=== PATIENT | male | born 1955 | race Caucasian/White ===

== ENCOUNTER 2019-10-19 12:25 | Outpatient (CLI) | payer BC, SELFPAY ==
--- NOTE | ~2019-10-19 | XR_ITS ---
EXAMINATION: XR clavicle RT DATE: 10/19/2019 12:48 INDICATION: Hypertrophy of bone, right shoulder. TECHNIQUE: 2 views of right clavicle were obtained. COMPARISON: None. FINDINGS: Bone alignment is normal. No fracture. There is mild osteoarthritis of acromioclavicular sujatha int and moderate osteoarthritis of glenohumeral joint. IMPRESSION: 1. Polyarticular osteoarthritis. Reviewed, dictated and finalized at location A.
== END 2019-10-19 12:26 | disposition home or self-care (01) ==
PROVIDERS: PCP Family Medicine; Visit Provider Family Medicine
DX: M89.311 Hypertrophy of bone, right shoulder (principal); M19.011 Primary osteoarthritis, right shoulder
CPT/HCPCS: 73000

== ENCOUNTER 2019-10-25 18:39 | Emergency (ER) | payer BC, SELFPAY ==
[2019-10-25] VITALS (7 sets, daily range): BP systolic 111–137; BP diastolic 71–96; PULSE 73–85; RESP 18–22; O2SAT 96–99
--- NOTE | ~2019-10-25 | XR_ITS ---
EXAMINATION: XR chest 1V portable INDICATION: Shortness of breath TECHNIQUE: Portable AP chest at 2016 hours COMPARISON: 04/19/2018 FINDINGS: There are minimal airspace opacities of the right lung base. No pleural effusion or pneumot horax is identified. The heart size is upper limits of normal for technique. IMPRESSION: 1. Right basilar airspace opacity, consistent with atelectasis versus pneumonia. Reviewed, dictated and finalized at location A. IMPRESSION: 1. Right basilar airspace opacity, consistent with atelectasis versus pneumonia .
--- NOTE | 2019-10-25 18:49 | ECG_ITS ---
Measurements Intervals [place] Rate: 78 P: 37 GA: 161 QRS: 7 QRSD: 90 T: -51 QT: 373 QTc: 427 Interpretive Statements SINUS RHYTHM T WAVE ABNORMALITY IN INFERIOR LEADS- CONSIDER ISCHEMIA ABNORMAL ECG Electronically Signed On 10-25-2019 21:04:56 CDT by Jay Ferguson D.O.
--- NOTE | 2019-10-25 18:51 | ED.SOB ---
HPI - SOB/Dyspnea General Chief Complaint: Shortness of Breath/Dyspnea Stated Complaint: sob Time Seen by Provider: 10/25/19 18:44 History of Present Illness HPI Narrative: BIBEMS for SOB. He says that he has been wheezing for a few weeks. Feeling intermittently SOB. Became very SOB today. EMS placed him on CPAP reportedly, alhough when he arrived he was on NRB. Says that he was feeling better. No chest pain, fever. He says that he has been diagnosed with COPD, no treatment. Related Data Home Medications Medication Instructions Recorded Confirmed amlodipine 5 mg tablet 5 mg PO DAILY 05/25/19 aspirin 81 mg tablet,delayed 81 mg PO DAILY 05/25/19 release losartan 100 mg tablet 100 mg PO DAILY 05/25/19 montelukast 10 mg tablet 10 mg PO DAILY 05/25/19 omeprazole 20 mg-sodium 1 cap PO DAILY 05/25/19 bicarbonate 1.1 gram capsule fluoxetine [Sarafem] 20 mg PO DAILY 10/25/19 insulin aspart U-100 [Novolog 150 unit SUB-Q DAILY 10/25/19 Flexpen U-100 Insulin] testosterone 4 pump TOPICAL DAILY 10/25/19 Allergies Allergy/AdvReac Type Severity Reaction Status Date / Time No Known Allergies Allergy Verified 10/25/19 19:05 Review of Systems Review of Systems: All systems reviewed & are unremarkable except as noted in HPI and below Constitutional: Constitutional: Denies fever(s) Cardiovascular: Cardiovascular: Denies chest pain Respiratory: Respiratory: Reports dyspnea and Reports wheezing Gastrointestinal: Gastrointestinal: Denies abdominal pain and Denies nausea PMFSH Past Medical History Medical History Chronic pain Erectile dysfunction Hyperlipidemia Hypertension 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, drug or chemical induced, with macular edema, with mild nonproliferative retinopathy Low testosterone Peripheral neuropathy Trigger finger Family History Family History Grandparent Diabetes mellitus Social History Social History Smoking status: Former smoker Second hand tobacco smoke exposure: No Smoking end date: 04/01/74 Alcohol intake: current Substance use: never Substance use type: does not use Gender identity (if verbalized by the patient): Male Spiritual care concerns: No Agree to blood products: Yes Exam Const: General: healthy appearing, no acute distress and alert Orientation/consciousness: patient oriented x3 HENMT: Head: normal to inspection Neck: Neck: normal visual inspection and no lymphadenopathy Chest: Chest palpation & inspection: no tenderness Resp: Effort & Inspection: normal respiratory effort and tachypneic Auscultation: wheezes Cardio: Jugular venous distension: no JVD Rate: regular rate Rhythm: regular rhythm Heart sounds: no murmurs GI: Inspection: non-distended GI Palp: Yes Soft to palpation and No Tenderness to palpation present (GI) Skin: General skin exam: normal color Neuro: General: patient oriented x3 and moves all extremities Speech: normal speech Extrem: General: no edema Psych: Appearance: well kempt Affect: normal affect Course Vital Signs Vital signs: Vital Signs Pulse Rate 80 10/25/19 18:53 Respiratory Rate 22 H 10/25/19 18:53 Blood Pressure 135/75 10/25/19 18:53 Pulse Oximetry 99 10/25/19 18:53 Pulse Rate 73 10/25/19 21:09 Respiratory Rate 20 10/25/19 21:09 Blood Pressure 137/71 10/25/19 21:09 Pulse Oximetry 97 10/25/19 21:09 MDM - SOB/Dyspnea MDM Narrative Medical decision making narrative: CXR shows possible pneumonia. Troponin and creatinine elevated. Discussed results and the need for admission with the patient and his . He refused admission and chose to sign out AMA. Medical Records Attestation: I reviewed the patient's medical records. Lab Data Attestation: I reviewed the patient's lab results.
[2019-10-25 19:07] LABS: Basophils Percent Auto 0.4 % (0.2-1.2); Eosinophils Absolute Auto 0.3 K/mm3 (0-0.3); Eosinophils Percent Auto 4.4 % (0-4.4); Hematocrit 43.6 % (42.0-52.0); Hemoglobin 14.3 g/dL (14.0-18.0); Immature Granulocyte Absolute 0.02 K/mm3 (0.00-0.031); Immature Granulocyte Percent A 0.3 % (0-0.5); Lymphocytes Percent Auto 23.2 % (18.3-44.2); Mean Corpuscular HGB Conc 32.8 g/dl (32-36); Mean Corpuscular Hemoglobin 27.9 pg (26-34); Mean Platelet Volume 11.4 fl (7.4-10.4); Monocytes Absolute Auto 0.7 K/mm3 (0.1-0.6); Monocytes Percent Auto 8.4 % (2.6-8.5); Neutrophils Absolute Auto 4.9 K/mm3 (1.3-6.7); Neutrophils Percent Auto 63.3 % (45.5-73.1); Platelet Count Result 181 k/mm3 (150-375); Red Blood Count 5.13 M/mm3 (4.6-6.20); Red Cell Distribution Width 13.7 % (11.5-14.5); White Blood Count 7.8 K/mm3 (4.5-10.0)
[2019-10-25 19:15] LABS: Prothrombin Time 12.8 Seconds (11.1-14.7)
[2019-10-25 19:16] LABS: Partial Thromboplastin Time 24.8 SECONDS (22.3-36.8)
[2019-10-25] MEDS: IPRATROPIUM BR 0.02% INH SOLN 0.5 MG/2.5 ML VIAL INHALATION (19:24)
[2019-10-25] MEDS: ALBUTEROL SULFATE NEB 2.5 MG/0.5 ML INH 5 MG INHALATION (19:24)
[2019-10-25] MEDS: methylPREDNISolone SOD SUCC 125 MG VIAL IV PUSH (19:27)
[2019-10-25 20:16] LABS: Anion Gap 12.6 mmol/L (7-16); Blood Urea Nitrogen 32 mg/dL (9-20); Calcium 8.2 mg/dL (8.4-10.2); Carbon Dioxide 23 mmol/L (22-30); Chloride 106 mmol/L (98-107); Estimated CRCL calculation 33 ml/min; Estimated Glomerular Filt Rate 29; Glucose 232 mg/dL (75-110); Potassium 4.6 mmol/L (3.4-5.0); Sodium 137 mmol/L (137-145)
[2019-10-25 20:35] LABS: NT Pro B Type Natriuretic Pept 729 PG/ML (5-100); Troponin I 0.148 ng/mL (0.000-0.034)
--- NOTE | 2019-10-25 21:23 | ECG_ITS ---
Measurements Intervals [place] Rate: 73 P: 41 MD: 169 QRS: 4 QRSD: 100 T: -53 QT: 374 QTc: 414 Interpretive Statements SINUS RHYTHM T WAVE ABNORMALITY IN INFERIOR LEADS- CONSIDER ISCHEMIA ABNORMAL ECG Electronically Signed On 10-26-2019 6:51:07 CDT by Jay Ferguson D.O.
== END 2019-10-25 21:47 | disposition left against medical advice (07) ==
PROVIDERS: Emergency Provider Emergency Medicine; PCP Family Medicine
DX: J18.9 Pneumonia, unspecified organism (principal); R79.89 Other specified abnormal findings of blood chemistry; E78.5 Hyperlipidemia, unspecified; I10 Essential (primary) hypertension; E09.3 Drug or chemical induced diabetes mellitus with ophthalmic complications; Z79.4 Long term (current) use of insulin; H54.8 Legal blindness, as defined in USA; E09.42 Drug or chemical induced diabetes mellitus with neurological complications with diabetic polyneuropathy; Z87.891 Personal history of nicotine dependence; R94.31 Abnormal electrocardiogram [ECG] [EKG]; J44.9 Chronic obstructive pulmonary disease, unspecified; Z79.82 Long term (current) use of aspirin
CPT/HCPCS: 36415; 71045; 80048; 83880; 84484; 85025; 85610; 85730; 93005; 94640; 96374; 99284; J2930

== ENCOUNTER 2019-10-26 20:02 | Inpatient (IN) | payer BC, SELFPAY ==
[2019-10-26] VITALS (12 sets, daily range): BP systolic 103–127; BP diastolic 59–72; PULSE 83–127; RESP 20–24; TEMP 36.3; O2SAT 93–99
--- NOTE | ~2019-10-26 | XR_ITS ---
XR chest 1V portable INDICATION: Shortness of breath TECHNIQUE: 2 view chest. FINDINGS: Comparison to multiple prior studies sequentially, with oldest reviewed study dated 006. There is mild bilateral interstitial prominence and peribronchial cuffing. There is no focal consoli dation, pleural effusion, or pneumothorax. The cardiomediastinal silhouette is normal.] IMPRESSION: 1. Findings most consistent with bronchiolitis versus an atypical or viral pneumonia. Reviewed, dictated and finalized at location A. IMPRESSION: 1. Findings most consistent with bronchiolitis versus an atypical or viral [facility].
--- NOTE | ~2019-10-26 | XR_ITS ---
XR abdomen NG/feed tube insert DATE: 10/27/2019 02:39 INDICATION: Nasogastric tube placement TECHNIQUE: Portable AP view on 10/27/2019 at 0233 hours COMPARISON: None FINDINGS: A nasogastric tube is present in the stomach. Nonspecific bowel gas pattern. IMPRESSION: NG tube in stomach Reviewed, dictated and finalized at Location A. Reviewed, dictated and finalized at location A. IMPRESSION: NG tube in stomach
--- NOTE | ~2019-10-26 | XR_ITS ---
XR chest ET placement DATE: 10/27/2019 02:39 INDICATION: ET tube placement TECHNIQUE: Portable AP chest on 10/27/2019 at 0232 hours COMPARISON: 10/26/2019 portable AP chest at 2034 hours FINDINGS: There are prominent bilateral infiltrates which are most prominent centrally; the distribut ion favors pulmonary edema; the rather rapid onset since 10/26/2019 also favors pulmonary edema. Pneum onia and aspiration are less likely but not excluded. There is mild prominence of the minor fissure suggesting subpleural edema. Minimal right pleural effu cesar is suggested. The left gastric angle is partially obscured. No pneumothorax. ET tube in satisfactory position 3.8 cm above piedad. A nasogastric tube is noted in the stomach. Degenerative spurring of the thoracic spine. Heart size is not optimally evaluated on AP projection because of magnification. IMPRESSION: Interval development of prominent bilateral central predominant pulmonary infiltrates sug gesting prominent pulmonary edema. Subpleural edema, minimal right pleural effusion. ET and NG tubes in satisfactory position Reviewed, dictated and finalized at Location A. Reviewed, dictated and finalized at location A. IMPRESSION: Interval development of prominent bilateral central predominant pul monary infiltrates suggesting prominent pulmonary edema. Subpleural edema, mini mal right pleural effusion. ET and NG tubes in satisfactory position
--- NOTE | 2019-10-26 20:07 | ED.SOB ---
HPI - SOB/Dyspnea General Chief Complaint: Upper Respiratory Infection Stated Complaint: sob History of Present Illness HPI Narrative: Seen here last night for SOB. Feeling better on arrival to the ED. Found to have elevated troponin and creatinine. CXR showed possible pneumonia. Signed out AMA at that time. Reports that he was doing well after leaving up until tonight. Tonight he became acutely SOB. EMS placed him on CPAP and he improved rapidly. Again he was feeling beter on arrival to the ED. He did not have any chest pain, but did report some tightness in his throat. Related Data Home Medications Medication Instructions Recorded Confirmed amlodipine 5 mg tablet 5 mg PO DAILY 05/25/19 aspirin 81 mg tablet,delayed 81 mg PO DAILY 05/25/19 release losartan 100 mg tablet 100 mg PO DAILY 05/25/19 montelukast 10 mg tablet 10 mg PO DAILY 05/25/19 omeprazole 20 mg-sodium 1 cap PO DAILY 05/25/19 bicarbonate 1.1 gram capsule fluoxetine [Sarafem] 20 mg PO DAILY 10/25/19 insulin aspart U-100 [Novolog 150 unit SUB-Q DAILY 10/25/19 Flexpen U-100 Insulin] testosterone 4 pump TOPICAL DAILY 10/25/19 Allergies Allergy/AdvReac Type Severity Reaction Status Date / Time No Known Allergies Allergy Verified 10/26/19 20:42 Review of Systems Review of Systems: All systems reviewed & are unremarkable except as noted in HPI and below Constitutional: Constitutional: Denies chills and Denies fever(s) Cardiovascular: Cardiovascular: Denies chest pain Respiratory: Respiratory: Reports dyspnea and Reports wheezing Gastrointestinal: Gastrointestinal: Denies nausea and Denies vomiting Musculoskeletal: Musculoskeletal: Denies back pain [facility] Social History Social History Smoking status: Former smoker Second hand tobacco smoke exposure: No Smoking end date: 04/01/74 Alcohol intake: current Substance use: never Substance use type: does not use Gender identity (if verbalized by the patient): Male Spiritual care concerns: No Agree to blood products: Yes Exam Const: General: healthy appearing, no acute distress and alert Orientation/consciousness: patient oriented x3 HENMT: Head: normal to inspection Neck: Neck: normal visual inspection and no lymphadenopathy Chest: Chest palpation & inspection: no tenderness Resp: Effort & Inspection: normal respiratory effort Auscultation: clear to auscultation bilaterally, no rales, no rhonchi and no wheezes Cardio: Jugular venous distension: no JVD Rate: regular rate Rhythm: regular rhythm Heart sounds: no murmurs GI: Inspection: non-distended GI Palp: Yes Soft to palpation and No Tenderness to palpation present (GI) Skin: General skin exam: normal color Neuro: General: patient oriented x3 and moves all extremities Speech: normal speech Extrem: General: no edema Psych: Appearance: well kempt Affect: normal affect Course Course Emergency Course: Shortly after discussing the patient with Dr. Boland I was called back to the room. He had become unresponsive and now had pulmonary edema fluid coming from his mouth and nose. He was intubated rapidly. Consultations Consultation #1: Dr. Fontana called to discuss possibly taking the patient to manager cardiac cath after repeat EKG showed acute changes. He recommends maximum medical management and admission to the ICU. Orders placed. Case discussed with Dr. Boland. He will accept the patient to the ICU. Vital Signs Vital signs: Vital Signs Temperature 36.3 C L 10/26/19 20:20 Pulse Rate 88 10/26/19 20:20 Respiratory Rate 22 H 10/26/19 20:20 Blood Pressure 112/68 10/26/19 20:20 Pulse Oximetry 95 10/26/19 20:20 Temperature 36.3 C L 10/26/19 20:20 Pulse Rate 105 H 10/26/19 22:45 Respiratory Rate 22 H 10/26/19 22:45 Blood Pressure 127/72 10/26/19 22:45 Pulse Oximetry 94 10/26/19 22:45 Procedures Intubation Intubation #
--- NOTE | 2019-10-26 20:08 | ECG_ITS ---
Measurements Intervals [place] Rate: 83 P: 17 DC: 128 QRS: 16 QRSD: 93 T: -36 QT: 372 QTc: 437 Interpretive Statements SINUS RHYTHM ST-T WAVE ABNORMALITY IN ANTEROLATERAL LEADS- CONSIDER ISCHEMIA BASELINE ARTIFACT- III ABNORMAL ECG Electronically Signed On 10-27-2019 6:56:15 CDT by Jay Ferguson D.O.
[2019-10-26 20:39] LABS: Basophils Percent Auto 0.1 % (0.2-1.2); Hematocrit 41.7 % (42.0-52.0); Hemoglobin 13.8 g/dL (14.0-18.0); Immature Granulocyte Absolute 0.06 K/mm3 (0.00-0.031); Immature Granulocyte Percent A 0.4 % (0-0.5); Lymphocytes Absolute Auto 1.35 K/mm3 (0.9-3.2); Mean Corpuscular HGB Conc 33.1 g/dl (32-36); Mean Corpuscular Volume 84.8 fl (80-100); Mean Platelet Volume 11.8 fl (7.4-10.4); Monocytes Absolute Auto 1.3 K/mm3 (0.1-0.6); Monocytes Percent Auto 7.6 % (2.6-8.5); Neutrophils Absolute Auto 14.2 K/mm3 (1.3-6.7); Neutrophils Percent Auto 83.9 % (45.5-73.1); Platelet Count Result 200 k/mm3 (150-375); Red Blood Count 4.92 M/mm3 (4.6-6.20); Red Cell Distribution Width 13.9 % (11.5-14.5); White Blood Count 16.9 K/mm3 (4.5-10.0)
[2019-10-26 20:49] LABS: INR 1.1; Partial Thromboplastin Time 23.2 SECONDS (22.3-36.8); Prothrombin Time 13.6 Seconds (11.1-14.7)
[2019-10-26 20:50] LABS: Anion Gap 18.8 mmol/L (7-16); Blood Urea Nitrogen 50 mg/dL (9-20); Calcium 8.9 mg/dL (8.4-10.2); Carbon Dioxide 19 mmol/L (22-30); Chloride 105 mmol/L (98-107); Estimated CRCL calculation 24 ml/min; Estimated Glomerular Filt Rate 20; Glucose 225 mg/dL (75-110); Potassium 4.8 mmol/L (3.4-5.0); Sodium 138 mmol/L (137-145)
[2019-10-26 21:19] LABS: NT Pro B Type Natriuretic Pept 3480 PG/ML (5-100)
[2019-10-26 21:26] LABS: CRP 0.5 mg/dL (<1.0); Lactate Dehydrogenase 670 U/L (313-618)
[2019-10-26 21:44] LABS: D Dimer 0.29 ug/mL (<0.48)
[2019-10-26] MEDS: SODIUM CHLORIDE 0.9% IV 1,000 ML 999 ML IV CONT (21:58)
[2019-10-26] MEDS: HEPARIN SOD/D5W 100 UNITS/ML 25,000 UNITS/250 ML BAG 10 UNITS IV CONT (21:59)
[2019-10-26] MEDS: HEPARIN SODIUM 5,000 UNITS/ML VIAL 4000 UNITS IV PUSH (21:59)
--- NOTE | 2019-10-26 22:29 | PC.NURSE ---
Called lab to add on Uric
[2019-10-26 22:36] LABS: Uric Acid 7.5 mg/dL (3.5-8.5)
--- NOTE | 2019-10-26 22:51 | ECG_ITS ---
Measurements Intervals [place] Rate: 108 P: 42 WA: 162 QRS: 63 QRSD: 83 T: 56 QT: 318 QTc: 428 Interpretive Statements SINUS TACHYCARDIA ST-T WAVE ABNORMALITY IN ANTEROLAT/HIGH LAT LEADS- CONSIDER ISCHEMIA BASELINE ARTIFACT- II, III, AVF ABNORMAL ECG Electronically Signed On 10-27-2019 10:23:05 CDT by Jay Ferguson D.O.
--- NOTE | 2019-10-26 22:55 | PC.NURSE ---
RN called to room pt states he is starting to feel bad again. PT states he can feel he is getting sweaty and having a harder time breathing. EDP made aware. Spo2 88- 93% HR 109. Pt has wet cough and having coughing spells. PT placed on 15L NRB mask instead of 3LNC. EKG completed at request of EDP. On NRB mask pt Spo2 increased to 97% HR 108. Pt continues to have coughing spells. 2305 Respiratory arrives to bedside with albuterol inhaler
--- NOTE | 2019-10-26 23:05 | PC.NURSE ---
Report given to REHAN Mckeon at patient bedside
--- NOTE | 2019-10-26 23:10 | PC.NURSE ---
After 2 puffs of albuterol inhaler that was administered by respiratory. Pt continues to have coughing spells and is very restless thrashing around the bed. Pt has wet cough. Fine crackles noted during auscultation. Respiratory and 2 RNs at bedside. Pt Spo2 continues to fall even on 15L NRB. NRB removed and pt placed back onto BiPap by Respiratory. After being on BiPap pt continues to have trouble breathing and Spo2 sats continue to fall. Pt became unresponsive and stops answering any questions from staff. Pt begins to have pink frothy sputum into Bipap mask. Pt being suctioned. BVM started as respiratory and EDP prepare for intubation of patient. EDP, 2 RNs, and Respiratory at bedside.
[2019-10-26] MEDS: ALBUTEROL SULFATE (*SP) AEROSOL 1 PUFF 2 PUFF INHALATION (23:14)
[2019-10-26] MEDS: NITROGLYCERIN OINTMENT 1 INCH DOSE TRANSDERM (23:15)
[2019-10-26] MEDS: METOPROLOL TARTRATE INJ 5 MG/5 ML VIAL IV PUSH (23:48)
[2019-10-26] MEDS: EPTIFIBATIDE 20 MG/10 ML VIAL 17.1 MG IV PUSH (23:53)
--- NOTE | 2019-10-26 23:58 | PC.NURSE ---
2348 spoke with pt Kierra- updated her with pt status.
[2019-10-27] VITALS (34 sets, daily range): BP systolic 82–138; BP diastolic 51–81; PULSE 55–94; RESP 14–31; TEMP 35.8–37.1; O2SAT 90–100; BMI 29.2
--- NOTE | 2019-10-27 00:04 | PC.NURSE ---
Pt unresponsive about 2320. Intubated by MD Forrester @ 2330, correct color change at 2332. 28 @ the lip 8.0 E tube. Pt responding after intubation at 2340. Placed in soft restraints at 0005 for his safety. 200mL of pink frothy sputum collected in canister.
--- NOTE | 2019-10-27 00:10 | PCRCNOTE ---
20:08 pt came in by ems pt BS were clear bilat upper and LL bilat dim. Pt was placed on NC by MD was doing okay. PT had Albuterol added came back at 23:14 gave two puffs albuterol.PT was on NRB 15L. Pt placed on cpap of 9 60%. Pt had fine crackles and said he was having issues and panicking. PT then went into respiratory distress and intubated with an 8.0 tube at 28 @ the lip.
[2019-10-27] MEDS: RAPID SEQUENCE INTUBATION KIT 1 EACH (00:30)
--- NOTE | 2019-10-27 01:03 | PC.NURSE ---
Pt detached suction tube from ET and began to desat,nurse reassembled and began to suction Pt. Pt sats staggering in the 80's, RT called and state they will be here shortly.
--- NOTE | 2019-10-27 01:10 | PC.NURSE ---
0110 RT arrives and suctions Pt.
--- NOTE | 2019-10-27 02:26 | PC.NURSE ---
This patient, Akin Álvarez, was admitted to Intensive Care Unit-5. Patient/family oriented to hospital policies and general routines including ID bracelet, bed and alarms, visiting hours, pain management, procedures, bathroom and other care routines, personal items, smoking policy, room service/diet, and visiting hours. Valuables list has been completed. Information on how to activate the Rapid Response Team has been discussed. Patient/Family are encouraged to report perceived risks to care and to ask questions if they do not understand what they are told or what they should do.
[2019-10-27] MEDS: EPTIFIBATIDE 0.75 MG/ML 75 MG/100 ML VIAL 7.6 MG IV CONT (02:31)
[2019-10-27 02:50] LABS: Alveolar/Arterial O2 Gradient 611.4 mmHg; Base Excess ABG -9.1 mEq/l (+/-2.0); Carboxyhemoglobin 0.3 % THb (0-2.0); Fractional Inspired Oxygen 100 %; Methemoglobin ABG 0.2 %THb (0-1.5); Oxygen Content ABG 15.1 %vol (16.0-22.0); Oxyhemoglobin 72.7 % THb (90.0-100.0); PCO2 ABG 56.4 mmHg (35.0-45.0); PO2 FiO2 Ratio Arterial Blood 0.45 %; Reduced Hemoglobin 26.8 %THb (0-5.0); Total Hemoglobin 14.8 g/dL (12.0-18.0)
[2019-10-27] MEDS: FUROSEMIDE INJ 40 MG/4 ML VIAL IV PUSH ×2 (02:50→03:54)
[2019-10-27 02:52] LABS: PO2 ABG 45.2 mmHg (80.0-100.0); pH ABG 7.168 (7.350-7.450)
[2019-10-27] MEDS: DOPamine 400 MG/D5W 250 ML 400 MG/250 ML BAG 7.1 MG IV CONT (02:52)
[2019-10-27 02:53] LABS: Device VENTILATOR; Oxygen Saturation ABG 68.8 % (95.0-100.0); Site Drawn RIGHT FEMORAL
[2019-10-27 02:54] LABS: Arterial Blood Gas PEEP 12 cmH2O; Arterial Blood Gas Pressure Support 0 cmH2O; Arterial Blood Gas Tidal Volume 450 ml; Arterial Blood Gas Vent Mode CMV; Arterial Blood Gas Ventilator rate 16 /MIN
[2019-10-27] MEDS: SODIUM BICARBONATE 8.4% 50 MEQ/50 ML VIAL IV PUSH (03:56)
[2019-10-27 04:28] LABS: Basophils Absolute Auto 0.1 K/mm3 (0.0-0.1); Basophils Percent Auto 0.2 % (0.2-1.2); Hematocrit 42.7 % (42.0-52.0); Hemoglobin 13.8 g/dL (14.0-18.0); Immature Granulocyte Percent A 0.8 % (0-0.5); Lymphocytes Percent Auto 3.4 % (18.3-44.2); Mean Corpuscular HGB Conc 32.3 g/dl (32-36); Mean Corpuscular Hemoglobin 27.9 pg (26-34); Mean Corpuscular Volume 86.4 fl (80-100); Mean Platelet Volume 11.4 fl (7.4-10.4); Monocytes Absolute Auto 2.1 K/mm3 (0.1-0.6); Monocytes Percent Auto 7.9 % (2.6-8.5); Neutrophils Absolute Auto 23.2 K/mm3 (1.3-6.7); Neutrophils Percent Auto 87.7 % (45.5-73.1); Platelet Count Result 253 k/mm3 (150-375); Red Blood Count 4.94 M/mm3 (4.6-6.20); Red Cell Distribution Width 13.9 % (11.5-14.5); White Blood Count 26.4 K/mm3 (4.5-10.0)
[2019-10-27] MEDS: NOREPINEPHRINE 8 MG/D5W 250 ML 8 MG/250 ML BAG 9.4 MG IV CONT (04:56)
[2019-10-27] MEDS: VASOPRESSIN INJ 100 UNITS in DEXTROSE 5% 95 ML IV CONT (04:57)
[2019-10-27 04:58] LABS: Partial Thromboplastin Time 41.6 SECONDS (22.3-36.8)
--- NOTE | 2019-10-27 05:07 | PM.IMHP ---
H&P: HPI History of Present Illness Chief complaint: MELODY, pneumonia, suspect COVID-19, Narrative: Date and time of patient contact: 10/27/2019 at 2:20 a.m. Source of information is ER records and past medical records. The patient was unable to provide history as he was intubated and sedated. Akin Álvarez is a 63 year old male with a past medical history of diabetes mellitus, hypertension and COPD who presented to the ER with shortness of breath. the patient had initially been evaluated in the ER on 10/25/2019 for shortness of breath and wheezing. He was brought in by ambulance at that time and had been placed on a CPAP due to his respiratory distress. In the ER he felt the better after receiving nebulizer treatment. His labs at that time demonstrated acute on chronic renal insufficiency, elevated troponin , EKG changes and chest x-ray demonstrated right basilar airspace opacity consistent with atelectasis versus pneumonia. The patient was encouraged to stay in the hospital for further evaluation and the patient chose to leave AMA. the patient returned to the ER again via EMS on 10/26/2019 with acute/sudden worsening of shortness of breath. When EMS arrived at the patient's house he was diaphoretic and had oxygen saturations in the 80s. The patient received aspirin in the field and 1 sublingual nitroglycerin. The patient was on CPAP on arrival to the ER. The patient was weaned to 3 L nasal cannula on arrival to the ER. The patient had reported a cough but had denied any fevers. The patient had denied any chest pain. However the patient had reported some tightness in his throat. The patient was evaluated and was discovered to have leukocytosis and x-ray the read by radiology as possible viral pneumonia. He had developed leukocytosis and continue to worsening renal function. The patient was accepted for admission for suspected pneumonia with COVID-19 testing pending. The patient's troponin was slightly more elevated than previous. His EKG also demonstrated slightly worsening of ST depressions and T-wave inversions. However reported the patient could leave the ER he developed sudden respiratory failure And severely elevated blood pressures per ER report and required intubation. He was intubated and placed on nitropaste. 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 Courtney Bauer Code status: Full code Smoking status: Never smoker Second hand tobacco smoke exposure: No Smoking end date: 04/01/74 Alcohol intake: former Substance use: never Substance use type: does not use Living arrangements: with family Additional living arrangements comments: he lives with his and therefore adopted children. They down to the children in the fall of 2018. Additional occupation/education comments: Patient is disabled due to complications of diabetes. G
[2019-10-27] MEDS: CENTRAL LINE FLUSH 10 ML IV PUSH (05:12)
[2019-10-27] MEDS: SODIUM CHLORIDE 0.9% IV 1,000 ML 5 ML (05:13)
--- NOTE | 2019-10-27 05:14 | WPDPROCEDUR ---
Procedures Central Line Placement Right Femoral: Central Line Date: 10/27/19 Central Line Time: 03:20 Discussed w/ the patient/family/POA,the placement of a central venous catheter, including its clinical necessity/indication & associated potential risks, benifits and alternatives.: Yes The patient/family/POA understand(s) and acknowledge(s) the need to proceed with central venous catheter insertion as an important element of the patient's clinical management.: Yes Time Out Performed: Yes Patient Position: other (vascular) Patient placed on monitor/pulse ox: Yes Provider Prep: mask, sterile gown, sterile gloves, Max. sterile barrier precautions, cap and hand hygiene with conventional soap/water or alcohol based hand rub Central line prep: 2% Chlorhexidine scrub and sterile full body sheet applied Sterile US Technique with sterile gel/sterile probe covers: Yes Central line lumen inserted: triple Dominican: 7 Length (cm): 20 Depth of Insertion (cm): 19 Post procedure: sutured in place, good blood return, all ports aspirated, flushed, capped, tegaderm, hemostatic disc and aseptic technique maintained throughout procedure Patient tolerated procedure: well
--- NOTE | 2019-10-27 05:20 | P.PCNBED_ITS ---
Procedures Arterial Line Arterial Line Date: 10/27/19 Arterial Line Time: 03:50 Discussed with the patient/family/POA, the placement of an arterial catheter, including its clinical necessity/indication and associated potential risks, benefits and alternatives.: Yes Patient/family/POA and/or understands and acknowledges the need to proceed with the arterial catheter insertion as an important element of the patient's clinical management.: Yes Time Out Performed: Yes Patient Position: other (vascular) [employer] Super[employer] Prep: sterile gown, sterile gloves, mask and hat Site: left and femoral Site Prep: chlorhexidine and sterile drape Skin Anesthesia: 1% lidocaine Technique used: ultrasound-guided Size (Gauge): 14 Length: 12 cm Closure/Dressing: suture, tegaderm and other ( coag disc) Patient tolerated procedure: well Complications: none
[2019-10-27 05:53] LABS: Alveolar/Arterial O2 Gradient 604.7 mmHg; Base Excess ABG -9.4 mEq/l (+/-2.0); Fractional Inspired Oxygen 100 %; HCO3 ABG 17.2 mEq/l (22.0-26.0); Oxygen Content ABG 18.4 %vol (16.0-22.0); Oxygen Saturation ABG 90.8 % (95.0-100.0); PCO2 ABG 40.1 mmHg (35.0-45.0); PO2 ABG 68.2 mmHg (80.0-100.0); PO2 FiO2 Ratio Arterial Blood 0.68 %; Total Hemoglobin 14.4 g/dL (12.0-18.0)
[2019-10-27 05:54] LABS: pH ABG 7.251 (7.350-7.450)
[2019-10-27 05:55] LABS: Arterial Blood Gas Vent Mode CMV; Arterial Blood Gas Ventilator rate 16 /MIN; Device VENTILATOR; Modified Allen's Test Pass; Site Drawn ARTLINE
[2019-10-27 05:56] LABS: Arterial Blood Gas PEEP 16 cmH2O; Arterial Blood Gas Pressure Support 0 cmH2O; Arterial Blood Gas Tidal Volume 450 ml
[2019-10-27] MEDS: HEPARIN SODIUM 5,000 UNITS/ML VIAL 4000 UNITS IV PUSH (06:42)
[2019-10-27] MEDS: SODIUM BICARBONATE 8.4% 50 MEQ/50 ML VIAL 100 MEQ IV PUSH (06:45)
--- NOTE | 2019-10-27 06:51 | PC.NURSE ---
Pt given 100 of Succs at 2329 and 100 of Ketamine at 2330 during code, V.O from Md Dunlap..
[2019-10-27 07:28] LABS: Hepatitis B Surface Antigen Negative (Negative)
[2019-10-27 07:40] LABS: HIV 1/2 Ab P24 Ag Result Negative (Negative); Hepatitis C Virus Antibody Negative (Negative)
--- NOTE | 2019-10-27 09:16 | PM.CNCAR ---
Assessment and Plan Assessment and plan (1) Non-ST elevation ID (NSTEMI): Code(s): I21.4 - Non-ST elevation (NSTEMI) myocardial infarction Status: Acute Assessment and Plan: 63-year-old male with hypertension, type 2 diabetes mellitus on insulin Complicated by diabetic neuropathy and retinopathy, dyslipidemia, GERD, CKD. patient presents with worsening shortness of breath. He developed pulmonary edema, was intubated, and has required inotropic and pressor support to maintain his blood pressure. His EKG does show worsening ischemic ST segment abnormalities with significantly elevated troponin level, current peak troponin level is 10.5. There is also possibility of underlying lung infection given pulmonary infiltrates, leukocytosis. Due to patient's hemodynamic instability in the setting of elevated troponins and worsening ST segment and T-wave abnormalities, it was deemed appropriate to proceed with invasive workup with coronary angiogram to rule out any significant obstructive CAD. Patient has renal insufficiency, and would be at an increased risk of contrast induced nephropathy. Consent was taken from patient's . Continue current supportive care. Continue antiplatelet treatment, continue anticoagulation with heparin. Ventilatory support, management as per critical care physician. COVID-19 PCR is pending Prognosis guarded (2) Acute on chronic renal failure: Code(s): N17.9 - Acute kidney failure, unspecified; N18.9 - Chronic kidney disease, unspecified Status: Acute Assessment and Plan: see above will also check echocardiogram with Doppler (3) Acute respiratory failure: Code(s): J96.00 - Acute respiratory failure, unspecified whether with hypoxia or hypercapnia Status: Acute History of Present Illness History of Present Illness Consult date/time: 10/27/19 09:16 date of service: 10/19/2019 requesting physician:DR Cheng Reason for consult: troponin elevation Chief complaint: shortness of breath HPI: 63-year-old male with hypertension, type 2 diabetes mellitus on insulin Complicated by diabetic neuropathy and retinopathy, dyslipidemia, GERD, CKD. Patient originally presented to [facility] emergency room on 10/25/2019 with complaints of wheezing and shortness of breath. Apparently, he was placed on CPAP and non-rebreather. He denied chest pain at that time. His EKG which I personally evaluated showed sinus rhythm, ST depression in leads V4 to V6, T-wave inversion in the inferior leads. His troponins were mildly elevated at 0.148. Apparently, patient left AMA from the emergency room. He came back to the ER on 10/26/2019 with worsening shortness of breath. His repeat EKG on my personal evaluation showed sinus rhythm, worsening of ST-T abnormality in the anterolateral leads. His subsequent troponins were elevated at 2.57, 6.10, 10.5. Initial chest x-ray on 10/25/2019 showed right lower lobe infiltrates. Due to worsening respiratory status, he was intubated yesterday. He has been admitted to the ICU, and has been requiring inotropic and pressor support maintain his blood pressure. Review of medical records indicate that he follows up with Dr. Choudhury for his cardiovascular care. His last visit in the office was on 01/02/2019 at which time his main complaint was paresthesia in the feet. He had MPI done on 04/24/2018 which was negative for ischemia with LVEF 53%. Reason For Visit: MELODY, pneumonia, suspect COVID-19, Review of Systems Review of Systems: Narrative: Unable to obtain review of system, patient is intubated and sedated. He presented with wheezing and shortness of breath, developed respiratory distress and was intubated. Has been requiring multiple inotropic and pressor support maintain his blood pressure. no documented recent history of chest pain. [facility] Past Medical History Medical History BPH
--- NOTE | 2019-10-27 09:54 | WPDMODSED ---
Moderate Sedation Note-Pt Data Patient Data Allergies Allergy/AdvReac Type Severity Reaction Status Date / Time No Known Allergies Allergy Verified 10/26/19 20:42 Home Medications Medication Instructions Recorded Confirmed Type pen needle, diabetic 31 gauge x #200 each 02/11/19 Rx 5/16 amlodipine 5 mg tablet 5 mg PO DAILY 05/25/19 10/27/19 History aspirin 81 mg tablet,delayed 81 mg PO DAILY 05/25/19 10/27/19 History release losartan 100 mg tablet 100 mg PO DAILY 05/25/19 10/27/19 History montelukast 10 mg tablet 10 mg PO DAILY 05/25/19 10/27/19 History omeprazole 20 mg-sodium 1 cap PO DAILY 05/25/19 10/27/19 History bicarbonate 1.1 gram capsule rosuvastatin 40 mg sprinkle capsule 40 mg PO DAILY #90 cap 05/28/19 10/27/19 Rx finasteride 5 mg tablet 5 mg PO DAILY #90 tablet 06/29/19 10/27/19 Rx pregabalin 100 mg capsule 100 mg PO TID #270 cap 06/30/19 10/27/19 Rx flash glucose sensor #6 each 07/14/19 Rx insulin detemir U-100 100 unit/mL See Rx Instructions SUB-Q BID 90 08/27/19 10/27/19 Rx (3 mL) subcutaneous pen Days #48 syr albuterol sulfate 90 mcg INHALATION Q4H PRN #1 each 10/25/19 10/27/19 Rx fluoxetine [Sarafem] 20 mg PO DAILY 10/25/19 10/27/19 History insulin aspart U-100 [Novolog 150 unit SUB-Q DAILY 10/25/19 10/27/19 History Flexpen U-100 Insulin] testosterone 4 pump TOPICAL DAILY 10/25/19 10/27/19 History Current Medications: Active Medications Albuterol (Proventil Hfa) 6 puff INHALATION QIDRT MARISELA Dexamethasone Sodium Phosphate (Decadron 10 Mg/Ml Inj) 6 mg IV PUSH DAILY MARISELA Last Admin: 10/27/19 08:35 Dose: 6 mg Documented by: Heparin Sodium (Porcine) (Heparin Sodium) 4,000 units IV PUSH PRN PRN PRN Reason: aPTT less than 55 seconds Last Admin: 10/27/19 06:42 Dose: 4,000 units Documented by: Heparin Sodium (Porcine) (Heparin Sodium) 3,500 units IV PUSH PRN PRN PRN Reason: aPTT 55 - 70 seconds Heparin Sodium/Dextrose (Heparin Sodium/D5w 100 Units/Ml) 25,000 units in 250 mls @ 13 mls/hr IV CONT .[id number] MARISELA; Protocol Last Titration: 10/27/19 07:15 Dose: 1,300 units/hr, 13 mls/hr Documented by: Eptifibatide (Integrilin) 75 mg in 100 mls @ 7.6 mls/hr IV CONT .[id number] [facility] Last Infusion: 10/27/19 08:37 Dose: 1 mcg/kg/min, 7.6 mls/hr Documented by: Ceftriaxone Sodium/Dextrose (Rocephin 1 Gm/D5w 50 Ml) 1 gm in 50 mls @ 100 mls/hr IVPB Q24H MARISELA Azithromycin (Zithromax) 500 mg in 250 mls @ 250 mls/hr IVPB Q24H MARISELA Midazolam HCl (Versed 50 Mg/D5w 100 Ml) 50 mg in 100 mls @ 2 mls/hr IV CONT .Q50H [facility] Last Infusion: 10/27/19 08:38 Dose: 2 mg/hr, 4 mls/hr Documented by: Fentanyl Citrate (Fentanyl 2,500 Mcg/Ns 250 Ml) 2,500 mcg in 250 mls @ 5 mls/hr IV CONT .Q50H [facility] Last Infusion: 10/27/19 08:38 Dose: 50 mcg/hr, 5 mls/hr Documented by: Dopamine HCl/Dextrose (Dopamine 400 Mg/D5w 250 Ml) 400 mg in 250 mls @ 0 mls/hr IV CONT .Q0M [facility]; Protocol Last Titration: 10/27/19 04:52 Dose: 0 mcg/kg/min, 0 mls/hr Documented by: Norepinephrine Bitartrate (Levophed 8 Mg/D5w 250 Ml) 8 mg in 250 mls @ 1.875 mls/hr IV CONT .Q72H [facility]; Protocol Last Titration: 10/27/19 09:34 Dose: 1 mcg/min, 1.9 mls/hr Documented by: Vasopressin 100 units/ (Dextrose) 100 mls @ 0 mls/hr IV CONT .Q0M [facility]; Protocol Last Titration: 10/27/19 09:26 Dose: 0 units/min, 0 mls/hr Documented by: Sodium Chloride (Central Line Flush) 10 ml IV PUSH Q8HR [facility] Last Admin: 10/27/19 05:12 Dose: 10 ml Documented by: Sodium Chloride (Central Line Flush) 10 ml IV PUSH DAILY@1800 MARISELA Sodium Chloride (Central Line Flush) 20 ml IV PUSH PRN PRN PRN Reason: after blood draws Tiotropium [place] (Spiriva) 1 cap INHALATION QAM [facility] Last Admin: 10/27/19 08:36 Dose: Not Given Documented by: Sedation/Anesthesia: No previous sedation/anesthesia problems (including family history). PMFSH Past Medical History Medical History BPH (benign prostatic hyperplasia) Chronic saleem
[2019-10-27 10:49] LABS: Alveolar/Arterial O2 Gradient 449.4 mmHg; Base Excess ABG -6.6 mEq/l (+/-2.0); Fractional Inspired Oxygen 85 %; HCO3 ABG 19.3 mEq/l (22.0-26.0); Oxygen Content ABG 20.6 %vol (16.0-22.0); Oxygen Saturation ABG 97.8 % (95.0-100.0); Oxyhemoglobin 96.9 % THb (90.0-100.0); PO2 ABG 115.2 mmHg (80.0-100.0); PO2 FiO2 Ratio Arterial Blood 1.36 %; Site Drawn ARTLINE; pH ABG 7.301 (7.350-7.450)
[2019-10-27 10:50] LABS: Device VENTILATOR
[2019-10-27 10:51] LABS: Arterial Blood Gas PEEP 16 cmH2O; Arterial Blood Gas Tidal Volume 450 ml; Arterial Blood Gas Vent Mode CMV; Arterial Blood Gas Ventilator rate 20 /MIN
--- NOTE | 2019-10-27 11:41 | WPDCARDPROC ---
Cardiac Cath Procedure Note Date of procedure:: 10/27/19 Performing physician:: Garrick Estrella MD Procedure Procedure note:: CARDIAC CATHETERIZATION AND PERCUTANEOUS CORONARY INTERVENTION REPORT DATE OF PROCEDURE: 10/27/2019 INDICATION FOR PROCEDURE: Non ST-elevation myocardial infarction with hemodynamic instability BRIEF CLINICAL HISTORY:63-year-old male with hypertension, type 2 diabetes mellitus on insulin complicated by diabetic neuropathy and retinopathy, dyslipidemia, GERD, CKD. . Patient was admitted with worsening shortness of breath. He developed pulmonary edema, was intubated, and has required inotropic and pressor support to maintain his blood pressure. His EKG showed worsening ischemic ST segment abnormalities with significantly elevated troponin level, current peak troponin level is 10.5. . Patient is also being treated for possible underlying lung infection given pulmonary infiltrates, leukocytosis. His COVID 19 PCI testing is pending. Patient has required inotropic and pressor support in the ICU. Due to patient's hemodynamic instability in the setting of elevated troponins and worsening ST segment and T-wave abnormalities, it was deemed appropriate to proceed with invasive workup with coronary angiogram to rule out any significant obstructive CAD. Patient has renal insufficiency, and would be at an increased risk of contrast induced nephropathy. Benefits and risks of the procedure were discussed patient's in depth, and informed consent was obtained from patient's . Risks of the procedure include but are not limited to vascular complications including groin hematoma, retroperitoneal bleed, vessel perforation; periprocedural MO, cardiac arrhythmias, stroke, contrast induced nephropathy, and . After discussing all the benefits, risks and alternatives, patient was willing to proceed with the procedure. PROCEDURES PERFORMED: 1. Left heart catheterization- Selective left and right coronary angiogram; left ventriculogram and hemodynamic assessment 2. Percutaneous coronary intervention- Insertion and placement of left ventricular assist device -Impella for hemodynamic support in the setting of multivessel CAD and cardiogenic shock (CPT 65920) 3. Selective right common femoral angiogram 4. Sedation-CPT code 85780 MODERATE SEDATION: The patient was already intubated and on sedation with Midazolam and fentanyl drip. slab installer sedation observation Start time 1212 , Stop time 1240 ; Total [id number] time 28 minutes; Sam Smith RN was trained observer for moderate sedation. ACCESS SITE: Right common femoral artery PROCEDURE NOTE: After obtaining informed consent from patient's , patient was brought to catheterization lab and prepped and draped in a usual sterile manner. After local anesthesia with lidocaine, right common femoral artery access was taken with micropuncture needle followed by insertion of a 5 Vietnamese sheath. Selective left and right coronary angiogram was performed using 5 Vietnamese JL4 and JR4 catheters respectively. Orthogonal views were taken. Next, a 5 Vietnamese pigtail catheter was advanced in the LV cavity and was flushed with normal saline. LV pressure measurement was performed. After this, left ventriculogram was performed. The catheter was flushed again, and gradient across the aortic valve was measured on the pullback of the catheter. Selective right common femoral angiogram was performed before placement of 14 Vietnamese sheath for the Impella placement. FINDINGS: LEFT MAIN CORONARY: the left main coronary artery is a medium caliber vessel with diffuse minor irregularities. The vessel bifurcates into LAD and left circumflex branches. LEFT ANTERIOR DESCENDING ARTERY: The LAD is a medium caliber vessel with severe disease. There is about 95% stenosis in the mid segment distal to the diagonal branch. The vessel tapers distally and becomes small caliber vessel. The major diagonal bran
--- NOTE | 2019-10-27 12:11 | WPDCNINT ---
Assessment and Plan Assessment and plan (1) Shock: Code(s): R57.9 - Shock, unspecified Status: Acute Assessment and Plan: patient with shock which could be related to cardiogenic versus septic shock - IV fluids in the ER he was given cautiously due to pulmonary edema - will check lactic acid - continue azithromycin and ceftriaxone - obtain urine and blood cultures - patient on vasopressin and Levophed, maintain mean arterial pressure is greater than 65 mmHg (2) Acute on chronic renal failure: Code(s): N17.9 - Acute kidney failure, unspecified; N18.9 - Chronic kidney disease, unspecified Status: Acute Assessment and Plan: patient with acute on chronic renal failure stage 3 - decreased urine output, - discussed with cardiology regarding dobutamine, currently going to cardiac catheterization NSTEMI with hemodynamically unstable id (3) Non-ST elevation [place] (NSTEMI): Code(s): I21.4 - Non-ST elevation (NSTEMI) myocardial infarction Status: Acute Assessment and Plan: patient presented with acute onset of shortness of breath, diaphoresis, ST changes in anterolateral leads - discussed with cardiology, patient for cardiac catheterization due to NSTEMI with hemodynamic instability - continue Integrilin and heparin infusion - cardiology take patient for cardiac catheterization (4) Acute respiratory failure: Code(s): J96.00 - Acute respiratory failure, unspecified whether with hypoxia or hypercapnia Status: Acute Assessment and Plan: acute respiratory failure likely related to flash pulmonary edema from NSTEMI, pneumonia - patient intubated in the ED on 10/26/2019 - currently on 16 of PEEP, 100% FiO2, will be FiO2 and PEEP gradually as tolerated - continue antibiotics as above - on fentanyl and Versed infusion for sedation, maintain RASS 0 to -2, daily sedation vacation (5) Hypertension: Code(s): I10 - Essential (primary) hypertension Status: Acute Assessment and Plan: patient with history of essential hypertension, currently on vasopressors, will continue to monitor (6) Hyperlipidemia: Code(s): E78.5 - Hyperlipidemia, unspecified Status: Acute Assessment and Plan: restart rosuvastatin (7) DVT prophylaxis: Code(s): Z29.9 - Encounter for prophylactic measures, unspecified Status: Acute Assessment and Plan: DVT prophylaxis: Patient on heparin infusion stress ulcer prophylaxis: Protonix (8) Suspected 2019 novel coronavirus infection: Code(s): Z20.828 - Contact with and (suspected) exposure to other viral communicable diseases Status: Acute Assessment and Plan: SARS-CoV-2 PCR swab has been obtained and pending - continue droplet, airborne, contact isolation/precautions Additional Plan will discuss with family code status: Full code Critical care time spent: 49 minutes Due to a high probability of clinically significant, life threatening deterioration, the patient required my highest level of preparedness to intervene emergently and I personally spent this critical care time directly and personally managing the patient. This critical care time included obtaining a history; examining the patient; pulse oximetry; ordering and review of studies; arranging urgent treatment with development of a management plan; evaluation of patient's response to treatment; frequent reassessment; and discussions with other providers. It was exclusive of separately billable procedures and treating other patients and teaching time. Please see Assessment and Plan section and the rest of the note for further information on patient assessment and treatment Clinical Research Manager Consult Note Consult date: 10/27/19 Time Seen: 07:08 Reason for consult: NSTEMI, ACS, cardiogenic shock, acute respiratory failure HPI: Akin Álvarez is a 63 year old male with significant past medical history of diabetes, essential h
--- NOTE | 2019-10-27 13:14 | PC.NURSE ---
Patient taken to maintenance shop laborer, maintenance shop laborer called to tell me patient is going to [facility] from [facility]. EMS called, brought patient belongings up to patient. Called to inform of what is going on. Patient still on ventilator and still on sedation transporting to [facility].
--- NOTE | 2019-10-27 14:53 | P.PNIM_ITS ---
Progress Note: A&P Assessment and Plan (1) Flash pulmonary edema: Code(s): J81.0 - Acute pulmonary edema Status: Acute Assessment and Plan: * patient is intubated in airway is protected. The patient is oxygenating well on ventilator. * Sp heart cath for NSTEMI. pt was intubated last night and had central line placed by night hospitalist. pts coronary disease is severe and in mutiple vessels.pt needed Insertion and placement of percutaneous left ventricular assist device -Impella for hemodynamic support in the setting of non ST- elevation [place] complicated by cardiogenic shock. pt is to be transfered to [facility] as per cardiology. (2) Acute respiratory failure: Code(s): J96.00 - Acute respiratory failure, unspecified whether with hypoxia or hypercapnia Status: Acute Assessment and Plan: * Due to flash pulmonary edema. * Sp heart cath for NSTEMI. pt was intubated last night and had central line placed by night hospitalist. pts coronary disease is severe and in mutiple vessels.pt needed Insertion and placement of percutaneous left ventricular assist device -Impella for hemodynamic support in the setting of non ST- elevation [place] complicated by cardiogenic shock. pt is to be transfered to [facility] as per cardiology. (3) Non-ST elevation [place] (NSTEMI): Code(s): I21.4 - Non-ST elevation (NSTEMI) myocardial infarction Status: Acute Assessment and Plan: * Cardiology has been consulted. * Sp heart cath for NSTEMI. pt was intubated last night and had central line placed by night hospitalist. pts coronary disease is severe and in mutiple vessels.pt needed Insertion and placement of percutaneous left ventricular assist device -Impella for hemodynamic support in the setting of non ST- elevation [place] complicated by cardiogenic shock. pt is to be transfered to [facility] as per cardiology. (4) Shock: Code(s): R57.9 - Shock, unspecified Status: Acute Assessment and Plan: * Most likely due to cardiogenic shock. (5) Acute on chronic renal failure: Code(s): N17.9 - Acute kidney failure, unspecified; N18.9 - Chronic kidney disease, unspecified Status: Acute Assessment and Plan: * Likely due to the patient's cardiogenic shock resulting in hypoperfusion. * Subjective Date/time seen: 10/27/19 14:53 Interval history: 63 year old male with a past medical history of diabetes mellitus, hypertension and COPD who presented to the ER with shortness of breath. the patient had initially been evaluated in the ER on 10/25/2019 for shortness of breath and wheezing. Sp heart cath for NSTEMI. pt was intubated last night and had central line placed by night hospitalist. pts coronary disease is severe and in mutiple vessels.pt needed Insertion and placement of percutaneous left ventricular assist device -Impella for hemodynamic support in the setting of non ST-elevation [place] complicated by cardiogenic shock. pt is to be transfered to [facility] as per cardiology. Review of Systems Review of Systems: ROS unobtainable: Yes unobtainable due to endotracheal tube Exam Narrative: Exam Narrative: Intubated and sedated in icu Objective Data Vital Signs Vital Signs: Vital Signs - 24 hr 10/26/19 20:20 10/26/19 20:45 10/26/19 21:00 Temperature 36.3 C L Pulse Rate 88 87 83 Respiratory Rate 22 H 22 H 20 Blood Pressure 112/68 109/61 108/59 L
--- NOTE | 2019-10-27 14:53 | PM.IMPN ---
Progress Note: A&P Assessment and Plan (1) Flash pulmonary edema: Code(s): J81.0 - Acute pulmonary edema Status: Acute Assessment and Plan: patient is intubated in airway is protected. The patient is oxygenating well on ventilator. Sp heart cath for NSTEMI. pt was intubated last night and had central line placed by night hospitalist. pts coronary disease is severe and in mutiple vessels.pt needed Insertion and placement of percutaneous left ventricular assist device -Impella for hemodynamic support in the setting of non ST-elevation [place] complicated by cardiogenic shock. pt is to be transfered to [facility] as per cardiology. (2) Acute respiratory failure: Code(s): J96.00 - Acute respiratory failure, unspecified whether with hypoxia or hypercapnia Status: Acute Assessment and Plan: Due to flash pulmonary edema. Sp heart cath for NSTEMI. pt was intubated last night and had central line placed by night hospitalist. pts coronary disease is severe and in mutiple vessels.pt needed Insertion and placement of percutaneous left ventricular assist device -Impella for hemodynamic support in the setting of non ST-elevation [place] complicated by cardiogenic shock. pt is to be transfered to [facility] as per cardiology. (3) Non-ST elevation [place] (NSTEMI): Code(s): I21.4 - Non-ST elevation (NSTEMI) myocardial infarction Status: Acute Assessment and Plan: Cardiology has been consulted. Sp heart cath for NSTEMI. pt was intubated last night and had central line placed by night hospitalist. pts coronary disease is severe and in mutiple vessels.pt needed Insertion and placement of percutaneous left ventricular assist device -Impella for hemodynamic support in the setting of non ST-elevation [place] complicated by cardiogenic shock. pt is to be transfered to [facility] as per cardiology. (4) Shock: Code(s): R57.9 - Shock, unspecified Status: Acute Assessment and Plan: Most likely due to cardiogenic shock. (5) Acute on chronic renal failure: Code(s): N17.9 - Acute kidney failure, unspecified; N18.9 - Chronic kidney disease, unspecified Status: Acute Assessment and Plan: Likely due to the patient's cardiogenic shock resulting in hypoperfusion. Subjective Date/time seen: 10/27/19 14:53 Interval history: 63 year old male with a past medical history of diabetes mellitus, hypertension and COPD who presented to the ER with shortness of breath. the patient had initially been evaluated in the ER on 10/25/2019 for shortness of breath and wheezing. Sp heart cath for NSTEMI. pt was intubated last night and had central line placed by night hospitalist. pts coronary disease is severe and in mutiple vessels.pt needed Insertion and placement of percutaneous left ventricular assist device -Impella for hemodynamic support in the setting of non ST-elevation [place] complicated by cardiogenic shock. pt is to be transfered to [facility] as per cardiology. Review of Systems Review of Systems: ROS unobtainable: Yes unobtainable due to endotracheal tube Exam Narrative: Exam Narrative: Intubated and sedated in icu Objective Data Vital Signs Vital Signs: Vital Signs - 24 hr 10/26/19 20:20 10/26/19 20:45 10/26/19 21:00 Temperature 36.3 C L Pulse Rate 88 87 83 Respiratory Rate 22 H 22 H 20 Blood Pressure 112/68 109/61 108/59 L Pulse Oximetry 95 96 96 10/26/19 21:15 10/26/19 21:30 10/26/19 21:45 Temperature Pulse Rate 85 86 85 Respiratory Rate 22 H 22 H 20 Blood Pressure 109/63 111/62 103/61 Pulse Oximetry 96 99 95 10/26/19 22:00 10/26/19 22:15 10/26/19 22:30 Temperature Pulse Rate 85 87 90 Respiratory Rate 22 H 23 H 24 H Blood Pressure 105/64 120/70 119/63 Pulse Oximetry 96 95 94 10/26/19 22:45 10/26/19 23:32 10/26/19 23:48 Temperature Pulse Rate 105 H 87 127 H Respiratory Rate
[2019-10-28 07:11] LABS: Activated Clotting Time 180 sec (74-137)
[2019-10-28 14:41] LABS: SARS-CoV-2 RNA PCR Negative
--- NOTE | 2019-11-21 11:28 | PM.TDS ---
Transfer Discharge Sum: Prov Provider Date of admission: 10/26/19 21:07 Primary care physician: Courtney Bauer MD Admitting clinician: Emeli Spence DO Consults: 10/26/19 Consult to Physician Routine Comment: Consulting Provider: Julio Reynaga Reason for consultation: NSTEMI Has provider been notified: Yes 10/27/19 Consult to Physician Routine Comment: DR. BOLAND IS AWARE OF THE PT. Consulting Provider: Brenda Boland housecalls nurse/MD group to consult: Dr. Boland Reason for consultation: respiratory failure, shock Has provider been notified: Yes DS: Admitting Diagnosis Admitting Diagnosis Admitting Diagnosis: MELODY, pneumonia, suspect COVID-19, DS: Discharge Diagnosis Discharge Diagnosis (1) Non-ST elevation [place] (NSTEMI): Code(s): I21.4 - Non-ST elevation (NSTEMI) myocardial infarction Status: Acute (2) Cardiogenic shock: Code(s): R57.0 - Cardiogenic shock Status: Acute Transfer Discharge Sum: Med Medications Active and Home Medications: Home Medications pen needle, diabetic 31 gauge x 5/16 #200 each 02/11/19 [Rx] amlodipine 5 mg tablet 5 mg PO DAILY 05/25/19 [History Confirmed 10/27/19] aspirin 81 mg tablet,delayed release 81 mg PO DAILY 05/25/19 [History Confirmed 10/27/19] losartan 100 mg tablet 100 mg PO DAILY 05/25/19 [History Confirmed 10/27/19] montelukast 10 mg tablet 10 mg PO DAILY 05/25/19 [History Confirmed 10/27/19] omeprazole 20 mg-sodium bicarbonate 1.1 gram capsule 1 cap PO DAILY 05/25/19 [History Confirmed 10/27/19] rosuvastatin 40 mg sprinkle capsule 40 mg PO DAILY #90 cap 05/28/19 [Rx Confirmed 10/27/19] finasteride 5 mg tablet 5 mg PO DAILY #90 tablet 06/29/19 [Rx Confirmed 10/27/19] pregabalin 100 mg capsule 100 mg PO TID #270 cap 06/30/19 [Rx Confirmed 10/27/19] flash glucose sensor #6 each 07/14/19 [Rx] insulin detemir U-100 100 unit/mL (3 mL) subcutaneous pen See Rx Instructions SUB-Q BID 90 Days #48 syr 08/27/19 [Rx Confirmed 10/27/19] albuterol sulfate 90 mcg INHALATION Q4H PRN #1 each 10/25/19 [Rx Confirmed 10/27/19] fluoxetine [Sarafem] 20 mg PO DAILY 10/25/19 [History Confirmed 10/27/19] insulin aspart U-100 [Novolog Flexpen U-100 Insulin] 150 unit SUB-Q DAILY 10/25/19 [History Confirmed 10/27/19] testosterone 4 pump TOPICAL DAILY 10/25/19 [History Confirmed 10/27/19] Transfer Discharge Sum: Hosp Hospital Course Hospital course: 63-year-old male with hypertension, type 2 diabetes mellitus on insulin complicated by diabetic neuropathy and retinopathy, dyslipidemia, GERD, CKD. . Patient was admitted with worsening shortness of breath. He developed pulmonary edema, was intubated, and has required inotropic and pressor support to maintain his blood pressure. His EKG showed worsening ischemic ST segment abnormalities with significantly elevated troponin level, current peak troponin level is 10.5. . Patient was also being treated for possible underlying lung infection given pulmonary infiltrates, leukocytosis. Patient has required inotropic and pressor support in the ICU. Due to patient's hemodynamic instability in the setting of elevated troponins and worsening ST segment and T-wave abnormalities, it was deemed appropriate to proceed with invasive workup with coronary angiogram to rule out any significant obstructive CAD. Patient underwent cardiac catheterization on 10/19/2019 which showed Severe, multivessel CAD- high-grade, were 95% stenosis mid LAD; 60-70% diffuse stenosis proximal segment major diagonal branch , hazy, poorly defined stenosis proximal LCX; severe diffuse disease small caliber OM1 branch ; high-grade, about 95% stenosis mid RCA; eccentric about 50% stenosis distal RCA ; Severe LV systolic dysfunction, ejection fraction about 25% with inferior wall severe hypokinesis to akinesis; LVEDP elevated at 22 mmHg. He underwent Insertion and placement of percutaneous left ventricular assist device -Impella for hemodynamic support in the
== END 2019-10-27 13:50 | disposition short-term general hospital (02) | DRG 215 ==
LOC: ANHED 21:17 → ANHICU 10-27 01:05
PROVIDERS: Internal Medicine; Admitting Provider Internal Medicine; Emergency Provider Emergency Medicine; PCP Family Medicine; Visit Provider Internal Medicine Cardiovascular Disease
PROC: 4A023N7 Measurement of Cardiac Sampling and Pressure, Left Heart, Percutaneous Approach (ICD-10-PCS; CPT 93452; principal; 2019-10-27 11:30)
PROC: 02HA3RZ Insertion of Short-term External Heart Assist System into Heart, Percutaneous Approach (ICD-10-PCS; CPT 33979; 2019-10-27 11:30)
DX: I21.4 Non-ST elevation (NSTEMI) myocardial infarction; R57.0 Cardiogenic shock; J96.00 Acute respiratory failure, unspecified whether with hypoxia or hypercapnia; J81.0 Acute pulmonary edema; N17.9 Acute kidney failure, unspecified; I25.10 Atherosclerotic heart disease of native coronary artery without angina pectoris; E11.3219 Type 2 diabetes mellitus with mild nonproliferative diabetic retinopathy with macular edema, unspecified eye; H54.8 Legal blindness, as defined in USA; E11.42 Type 2 diabetes mellitus with diabetic polyneuropathy; E11.22 Type 2 diabetes mellitus with diabetic chronic kidney disease; N18.3 Chronic kidney disease, stage 3 (moderate); I12.9 Hypertensive chronic kidney disease with stage 1 through stage 4 chronic kidney disease, or unspecified chronic kidney disease; Z20.828 Contact with and (suspected) exposure to other viral communicable diseases; J44.9 Chronic obstructive pulmonary disease, unspecified; N40.0 Benign prostatic hyperplasia without lower urinary tract symptoms; E78.1 Pure hyperglyceridemia; K21.9 Gastro-esophageal reflux disease without esophagitis; B00.9 Herpesviral infection, unspecified; G89.29 Other chronic pain; Z79.4 Long term (current) use of insulin; Z79.82 Long term (current) use of aspirin
CPT/HCPCS: 31500; 33990; 36415; 36600; 71045; 80048; 82375; 82805; 83050; 83615; 83880; 84484; 84550; 85025; 85380; 85610; 85730; 86140; 86703; 86803; 87086; 87340; 87635; 93005; 93458; 94002; 94003; 99291; A9270; C1751; C1887; C1894; C9803; G0432; J0456; J0696; J1100; J1265; J1327; J1644; J1940; J2250; J2704; J3010; J7030; J7040; J7060; U0003

== ENCOUNTER 2020-05-24 21:53 | Emergency (ER) | payer BC, SELFPAY ==
[2020-05-24 22:34] VITALS: BP 156/69; PULSE 70; RESP 17; TEMP 36.7; O2SAT 97
[2020-05-24 22:50] LABS: Basophils Percent Auto 0.3 % (0.2-1.2); Eosinophils Absolute Auto 0.3 K/mm3 (0-0.3); Eosinophils Percent Auto 3.7 % (0-4.4); Hematocrit 42.4 % (42.0-52.0); Hemoglobin 14.1 g/dL (14.0-18.0); Immature Granulocyte Absolute 0.03 K/mm3 (0.00-0.031); Immature Granulocyte Percent A 0.3 % (0-0.5); Lymphocytes Absolute Auto 1.88 K/mm3 (0.9-3.2); Lymphocytes Percent Auto 20.7 % (18.3-44.2); Mean Corpuscular HGB Conc 33.3 g/dl (32-36); Mean Corpuscular Hemoglobin 28.1 pg (26-34); Mean Corpuscular Volume 84.5 fl (80-100); Mean Platelet Volume 10.8 fl (7.4-10.4); Monocytes Absolute Auto 0.7 K/mm3 (0.1-0.6); Monocytes Percent Auto 7.9 % (2.6-8.5); Neutrophils Absolute Auto 6.1 K/mm3 (1.3-6.7); Neutrophils Percent Auto 67.1 % (45.5-73.1); Platelet Count Result 171 k/mm3 (150-375); Red Blood Count 5.02 M/mm3 (4.6-6.20); Red Cell Distribution Width 13.2 % (11.5-14.5); White Blood Count 9.1 K/mm3 (4.5-10.0)
[2020-05-24 23:00] LABS: Prothrombin Time 13.4 Seconds (11.1-14.7)
[2020-05-24 23:01] LABS: Partial Thromboplastin Time 30.1 SECONDS (22.3-36.8)
[2020-05-25 00:27] VITALS: BP 159/72; PULSE 64; RESP 18; O2SAT 97
--- NOTE | 2020-05-25 00:58 | ED.EPISTAXIS ---
HPI - Epistaxis General Chief complaint: Epistaxis Stated complaint: nosebleed Time Seen by Provider: 05/25/20 00:43 Source: patient Mode of arrival: ambulatory Limitations: no limitations History of Present Illness HPI Narrative: A 64-year-old male comes into the emergency department tonight with complaints of a nosebleed. Patient states he is on aspirin and Plavix. Patient notes that his nose started to bleed spontaneously around 9 PM. He states now that since he had to sit out in the waiting room for so long that it has spontaneously stopped. Patient denies any trauma, states he was not picking his nose. He does also note that he uses intranasal steroids nightly for allergies. Related Data Home Medications Medication Instructions Recorded Confirmed amlodipine 5 mg tablet 5 mg PO DAILY 05/25/19 10/27/19 aspirin 81 mg tablet,delayed 81 mg PO DAILY 05/25/19 10/27/19 release omeprazole 20 mg-sodium 1 cap PO DAILY 05/25/19 10/27/19 bicarbonate 1.1 gram capsule fluoxetine [Sarafem] 20 mg PO DAILY 10/25/19 10/27/19 insulin aspart U-100 [Novolog 150 unit SUB-Q DAILY 10/25/19 10/27/19 Flexpen U-100 Insulin] Allergies Allergy/AdvReac Type Severity Reaction Status Date / Time No Known Allergies Allergy Verified 10/26/19 20:42 Review of Systems Review of Systems: Narrative: CONSTITUTIONAL: Denies fever, chills, or sweats. EYES: Denies visual changes, redness, or discharge. ENT: Denies rhinorrhea, congestion, sore throat, or otalgia. CARDIOVASCULAR: Denies chest pain, palpitations, or edema. RESPIRATORY: Denies cough or dyspnea. GASTROINTESTINAL: Denies abdominal pain, nausea, vomiting, or diarrhea. GENITOURINARY: Denies dysuria or hematuria. SKIN: Denies rash or itching. MUSCULOSKELETAL: Denies back pain, joint pain, or myalgia. NEUROLOGIC: Denies headache, numbness, dizziness, or weakness. PSYCHIATRIC: Denies anxiety or depression. 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 Courtney Bauer Code status: Full code Smoking status: Never smoker Second hand tobacco smoke exposure: No Smoking end date: 04/01/74 Alcohol intake: former Substance use: never Substance use type: does not use Additional living arrangements comments: he lives with his and therefore adopted children. They down to the children in the fall of 2017. Additional occupation/education comments: Patient is disabled due to complications of diabetes. Gender identity (if verbalized by the patient): Male Spiritual care concerns: No Agree to blood products: Yes Exam Narrative: Exam Narrative: GENERAL: Well-appearing, well-nourished, and in no acute distress. HEAD: Normocephalic, atraumatic. EYES: PERRLA and EOMI. ENT: Nares clear, no rhinorrhea. Clotted blood seen in the right nare, no active bleeding. Mucous membranes moist. NECK: Supple. No adenopathy or masses. No carotid bruits or JVD CHEST: Clear to auscultation. No respir
== END 2020-05-25 01:15 | disposition home or self-care (01) ==
PROVIDERS: Emergency Provider Emergency Medicine; PCP Family Medicine
DX: R04.0 Epistaxis (principal); N40.0 Benign prostatic hyperplasia without lower urinary tract symptoms; E11.22 Type 2 diabetes mellitus with diabetic chronic kidney disease; I12.9 Hypertensive chronic kidney disease with stage 1 through stage 4 chronic kidney disease, or unspecified chronic kidney disease; N18.30 Chronic kidney disease, stage 3 unspecified; J44.9 Chronic obstructive pulmonary disease, unspecified; E78.5 Hyperlipidemia, unspecified; E78.1 Pure hyperglyceridemia; E11.42 Type 2 diabetes mellitus with diabetic polyneuropathy; E11.3219 Type 2 diabetes mellitus with mild nonproliferative diabetic retinopathy with macular edema, unspecified eye; H54.8 Legal blindness, as defined in USA; Z79.4 Long term (current) use of insulin; Z79.82 Long term (current) use of aspirin
CPT/HCPCS: 36415; 85025; 85610; 85730; 99283

== ENCOUNTER 2020-11-12 05:53 | Emergency (ER) | payer BC, SELFPAY ==
[2020-11-12 05:59] VITALS: BP 168/88; PULSE 76; RESP 18; TEMP 36.6; O2SAT 96
[2020-11-12] MEDS: ONDANSETRON HCL ODT 4 MG TABLET PO (08:01)
[2020-11-12] MEDS: MORPHINE SULFATE INJ (*CRX) 10 MG/ML AMP 6 MG IM (08:01)
--- NOTE | 2020-11-12 08:13 | ED.DENTAL ---
HPI - Dental/Oral General Chief complaint: Dental/Oral Stated complaint: infected tooth Time Seen by Provider: 11/12/20 07:43 Source: patient and family Mode of arrival: ambulatory Limitations: no limitations History of Present Illness HPI Narrative: Patient is 65 years old white male presents with left upper gum pain status post tooth extraction for implant on Saturday. 1 day later started on penicillin and Zofran by his dentist, patient is telling me that he is still in pain. Patient can take NSAID because of history of kidney disease ,patient denies any fever, chills, headache. Related Data Home Medications Medication Instructions Recorded Confirmed amlodipine 5 mg tablet 5 mg PO DAILY 05/25/19 08/18/20 aspirin 81 mg tablet,delayed 81 mg PO DAILY 05/25/19 08/18/20 release omeprazole 20 mg-sodium 1 cap PO DAILY 05/25/19 08/18/20 bicarbonate 1.1 gram capsule carvedilol 6.25 mg tablet 6.25 mg PO BID tablet 08/18/20 08/18/20 clopidogrel 75 mg tablet 75 mg PO DAILY 08/18/20 08/18/20 Allergies Allergy/AdvReac Type Severity Reaction Status Date / Time No Known Allergies Allergy Verified 11/12/20 06:43 Review of Systems Review of Systems: CONSTITUTIONAL: Denies fever, chills, or sweats. EYES: Denies visual changes, redness, or discharge. ENT: Denies rhinorrhea, congestion, sore throat, or otalgia. CARDIOVASCULAR: Denies chest pain, palpitations, or edema. RESPIRATORY: Denies cough or dyspnea. GASTROINTESTINAL: Denies abdominal pain, nausea, vomiting, or diarrhea. GENITOURINARY: Denies dysuria or hematuria. SKIN: Denies rash or itching. MUSCULOSKELETAL: Denies back pain, joint pain, or myalgia. NEUROLOGIC: Denies headache, numbness, or weakness. PSYCHIATRIC: Denies anxiety or depression. [facility] Past Medical History Medical History BPH (benign prostatic hyperplasia) Cardiogenic shock Chronic kidney disease, stage 3 baseline creatinine between 1.4-1.7 Chronic pain COPD (chronic obstructive pulmonary disease) Erectile dysfunction Heart attack (~09/2019) Herpes simplex Hyperlipidemia Hypertension Hypertriglyceridemia Low testosterone Peripheral neuropathy Trigger finger Surgical History Surgical History H/O skin graft of the right thigh as a child History of coronary artery stent placement History of knee surgery Family History Family History Grandparent Diabetes mellitus Mother Tuberculosis Dementia Father Dementia Hx of CABG in his early 60s Social History Social History Social History: Primary care physician: Dr. Courtney Bauer Code status: Full code Smoking status: Never smoker Second hand tobacco smoke exposure: No Smoking end date: 04/01/74 Alcohol intake: former Substance use: never Substance use type: does not use Additional living arrangements comments: he lives with his and therefore adopted children. They down to the children in the fall of 2018. Additional occupation/education comments: Patient is disabled due to complications of diabetes. Gender identity (if verbalized by the patient): Male Spiritual care concerns: No Agree to blood products: Yes Exam Narrative: General appearance: Well-developed, well-nourished Skin: Normal color Head: Normocephalic, nontraumatic Eyes: Clear conjunctiva ENT: Left upper gum showed status post dental extraction, no swelling or abscess formation Neck: Supple, nontender Neurologic: Alert and oriented ?3, [employer] is normal as tested, no gross motor deficit
== END 2020-11-12 08:52 | disposition home or self-care (01) ==
PROVIDERS: Emergency Provider Emergency Medicine; PCP Physician Assistant
DX: G89.18 Other acute postprocedural pain (principal); K08.89 Other specified disorders of teeth and supporting structures; I12.9 Hypertensive chronic kidney disease with stage 1 through stage 4 chronic kidney disease, or unspecified chronic kidney disease; E11.22 Type 2 diabetes mellitus with diabetic chronic kidney disease; N18.30 Chronic kidney disease, stage 3 unspecified; J44.9 Chronic obstructive pulmonary disease, unspecified; I25.2 Old myocardial infarction; E78.5 Hyperlipidemia, unspecified; E78.1 Pure hyperglyceridemia; G62.9 Polyneuropathy, unspecified; N40.0 Benign prostatic hyperplasia without lower urinary tract symptoms; Z95.5 Presence of coronary angioplasty implant and graft; Z79.82 Long term (current) use of aspirin; Z79.4 Long term (current) use of insulin
CPT/HCPCS: 96372; 99283; A9270; J2270

== ENCOUNTER 2020-12-12 06:11 | Inpatient (IN) | payer BC, MEDICARE, SELFPAY ==
[2020-12-12] VITALS (18 sets, daily range): BP systolic 95–158; BP diastolic 51–96; PULSE 84–99; RESP 18–25; TEMP 36.6–36.7; O2SAT 90–97; BMI 27.7
--- NOTE | ~2020-12-12 | XR_ITS ---
EXAMINATION: XR chest 1V portable DATE: 12/12/2020 06:33 INDICATION: Left-sided chest pain. Nausea and vomiting. TECHNIQUE: frontal view of the chest was obtained. COMPARISON: Chest radiograph dated 10/27/2019 FINDINGS: Lungs are now clear with resolution of prior airspace opacities. No pulmonary edema, pleural effusion or pneumothorax. The cardiomediastinal silhouette is normal. IMPRESSION: 1. No acute cardiopulmonary disease. Reviewed, dictated and finalized at location A.
--- NOTE | ~2020-12-12 | CT_ITS ---
EXAMINATION: CT abdomen pelvis wo con DATE: 12/12/2020 09:57 INDICATION: Right flank and low back pain TECHNIQUE: Computed tomography (CT) of the abdomen and pelvis was performed without intravenous contr ast. The dose-length product (DLP) was 725.54 mGy-cm. Automated exposure control and iterative recons truction technique were employed. COMPARISON: None FINDINGS: Minimal dependent atelectasis is present in the lung bases. The heart size is normal. The l iver, spleen, pancreas, and adrenal glands are normal. The gallbladder is mildly distended and contai ns gallstones. The kidneys are unremarkable. No stones are identified in the kidneys, ureters, or kia dder. There is no hydronephrosis or hydroureter. Colonic diverticulosis is present without evidence o f diverticulitis. The appendix is normal. No pathologically enlarged abdominal or pelvic lymph nodes are identified. There is no free intraperitoneal gas or evidence of bowel obstruction. There is mode rate enlargement of the prostate. There is moderate lumbar spondylosis. A fat-containing umbilical he rnia is noted. IMPRESSION: 1. Cholelithiasis with gallbladder distention which could be due to fasting state however recommend c orrelation for right upper quadrant tenderness. Reviewed, dictated and finalized at location A. IMPRESSION: 1. Cholelithiasis with gallbladder distention which could be due to fasting sta te however recommend correlation for right upper quadrant tenderness.
--- NOTE | 2020-12-12 06:25 | ECG_ITS ---
Measurements Intervals [place] Rate: 88 P: 36 [place]: 156 QRS: -4 QRSD: 90 T: 87 QT: 354 QTc: 430 Interpretive Statements SINUS RHYTHM POSSIBLE LEFT ATRIAL ENLARGEMENT CONSIDER INFERIOR INFARCT, AGE INDETERMINATE ST-T WAVE ABNORMALITY IN HIGH LATERAL LEADS- CONSIDER ISCHEMIA ABNORMAL ECG Electronically Signed On 12-12-2020 7:49:47 CDT by Jay Ferguson D.O.
--- NOTE | 2020-12-12 06:29 | ED.GENADULT ---
HPI - General Adult General Chief complaint: Chest Pain <Ezio Dailey MD - Last Filed: 12/12/20 06:32> Stated complaint: n/v/d/ CP <Ezio Dailey MD - Last Filed: 12/12/20 06:32> Time Seen by Provider: 12/12/20 06:25 <Ezio Dailey MD - Last Filed: 12/12/20 06:32> History of Present Illness HPI narrative: Patient 67-year-old gentleman who presents the emergency department with chief complaint of chest pain nausea vomiting and right flank pain patient reports that he started having some discomfort in his right flank area for several days and this evening started having nausea and vomiting and then had discomfort in his chest patient reports he has prior history of SD has had stents placed in his heart his prior SD was complicated with having to have a ventricular assist device that was complicated with an arterial injury that required repair of what sounds like a subclavian artery. The patient states that he called EMS this evening and was given sublingual nitro and aspirin and his symptoms have subsequently resolved <Ezio Dailey MD - Last Filed: 12/12/20 06:32> Related Data Home medications: Home Medications Medication Instructions Recorded Confirmed amlodipine 5 mg tablet 5 mg PO DAILY 05/25/19 12/12/20 aspirin 81 mg tablet,delayed 81 mg PO DAILY 05/25/19 12/12/20 release omeprazole 20 mg-sodium 1 cap PO DAILY 05/25/19 12/12/20 bicarbonate 1.1 gram capsule carvedilol 6.25 mg tablet 6.25 mg PO BID tablet 08/18/20 12/12/20 clopidogrel 75 mg tablet 75 mg PO DAILY 08/18/20 12/12/20 insulin detemir U-100 [Levemir 80 unit SUB-Q Q12H 12/12/20 12/12/20 FlexTouch U-100 Insuln] losartan 1 mg PO DAILY 12/12/20 12/12/20 <Ezio Dailey MD - Last Filed: 12/12/20 06:32> Allergies/adverse reactions: Allergies Allergy/AdvReac Type Severity Reaction Status Date / Time No Known Allergies Allergy Verified 12/12/20 12:53 <Ezio Dailey MD - Last Filed: 12/12/20 06:32> Review of Systems Review of Systems: A 10 system review of systems was completed on the patient and is negative except for what is stated in the HPI. Nursing and ancillary documentation was reviewed. <Ezio Dailey MD - Last Filed: 12/12/20 06:32> [facility] Past Medical History Medical History: Medical History (Updated 12/12/20 @ 17:22 by Randal Lizarraga MD) Blind Both eyes BPH (benign prostatic hyperplasia) Cardiogenic shock Chronic kidney disease, stage 3 Chronic pain COPD (chronic obstructive pulmonary disease) DM2 (diabetes mellitus, type 2) Erectile dysfunction Heart attack (~09/2019) Herpes simplex Hyperlipidemia Hypertension Hypertriglyceridemia Low testosterone Peripheral neuropathy Trigger finger <Ezio Dailey MD - Last Filed: 12/12/20 06:32> Surgical History Surgical History: Surgical History (Updated 12/12/20 @ 14:46 by Bethanie Carmona NP) H/O hand surgery Left hand H/O skin graft of the right thigh as a child History of coronary artery stent placement Four cardiac stents [facility] via thoracotomy History of knee surgery <Ezio Dailey MD - Last Filed: 12/12/20 06:32> Family History Family History: Family History Grandparent Diabetes mellitus Mother Tuberculosis Dementia Father Dementia Hx of CABG in his early 60s <Ezio Dailey MD - Last Filed: 12/12/20 06:32> Social History Social History: Social History (Updated 12/12/20 @ 14:19 by Bethanie Carmona NP) Social History: The patient has 2 biologic biological children and his has 1 adopted child Primary care physician: Dr. Courtney Bauer Code status: Full code Smoking status: Never smoker Second hand tobacco smoke exposure: No Smoking end date: 04/01/74 Alcohol intake: never Substance use: n
[2020-12-12] MEDS: ONDANSETRON INJ 4 MG/2 ML VIAL IV PUSH ×4 (06:32→20:32)
[2020-12-12 07:04] LABS: Basophils Percent Auto 0.1 % (0.2-1.2); Hematocrit 37.3 % (42.0-52.0); Hemoglobin 12.2 g/dL (14.0-18.0); Immature Granulocyte Absolute 0.09 K/mm3 (0.00-0.031); Immature Granulocyte Percent A 0.6 % (0-0.5); Lymphocytes Absolute Auto 0.77 K/mm3 (0.9-3.2); Lymphocytes Percent Auto 4.9 % (18.3-44.2); Mean Corpuscular HGB Conc 32.7 g/dl (32-36); Mean Corpuscular Hemoglobin 27.9 pg (26-34); Mean Corpuscular Volume 85.4 fl (80-100); Mean Platelet Volume 10.8 fl (7.4-10.4); Monocytes Absolute Auto 1.4 K/mm3 (0.1-0.6); Monocytes Percent Auto 8.9 % (2.6-8.5); Neutrophils Absolute Auto 13.4 K/mm3 (1.3-6.7); Neutrophils Percent Auto 85.5 % (45.5-73.1); Platelet Count Result 116 k/mm3 (150-375); Red Blood Count 4.37 M/mm3 (4.6-6.20); Red Cell Distribution Width 13.3 % (11.5-14.5); White Blood Count 15.6 K/mm3 (4.5-10.0)
[2020-12-12 07:09] LABS: Alanine Aminotransferase 18 U/L (4-50); Albumin Level 3.9 g/dL (3.5-5.1); Alkaline Phosphatase 76 U/L (38-126); Anion Gap 11 mmol/L (8-16); Aspartate Amino Transferase 18 U/L (17-59); Bilirubin,Total 0.9 mg/dL (0.2-1.3); Blood Urea Nitrogen 28 mg/dL (9-20); Calcium 8.8 mg/dL (8.4-10.2); Carbon Dioxide 21 mmol/L (22-30); Chloride 103 mmol/L (98-107); Estimated CRCL calculation 35 ml/min; Estimated Glomerular Filt Rate 32; Glucose 323 mg/dL (65-110); Lipase 49 U/L (23-300); Potassium 4.6 mmol/L (3.4-5.0); Sodium 135 mmol/L (137-145)
[2020-12-12 07:19] LABS: Add Urine Microscopic? YES; Appearance Urine Clear (Clear); Bacteria Urine Trace /hpf; Bilirubin Urine Negative (Negative); Blood Urine 2+ (Negative); Color Urine Yellow (Yellow); Glucose Urine UA 3+ mg/dL (Negative); Ketones Urine 1+ mg/dL (Negative); Leukocyte Esterase Ur Trace LEU/UL (Negative); Mucus Urine Rare /lpf; Nitrate Urine Negative (Negative); Protein Urine 3+ mg/dL (Negative); Specific Grav Ur 1.018 (1.001-1.035); Urobilinogen Urine Negative mg/dL (<2.0); WBC Urine 51-75 /hpf
[2020-12-12 07:20] LABS: NT Pro B Type Natriuretic Pept 723 pg/mL (5-100); Troponin I 0.029 ng/mL (0.000-0.034)
[2020-12-12 07:39] LABS: INR 1.1; Prothrombin Time 14.1 Seconds (11.1-14.7)
[2020-12-12 07:40] LABS: Partial Thromboplastin Time 32.6 SECONDS (22.3-36.8)
--- NOTE | 2020-12-12 08:26 | ECG_ITS ---
Measurements Intervals [place] Rate: 86 P: 38 [place]: 165 QRS: -6 QRSD: 86 T: 116 QT: 350 QTc: 420 Interpretive Statements SINUS RHYTHM CONSIDER INFERIOR INFARCT, AGE INDETERMINATE ST-T WAVE ABNORMALITY IN ANTEROLAT/HIGH LAT LEADS- CONSIDER ISCHEMIA ABNORMAL ECG Electronically Signed On 12-12-2020 9:02:09 CDT by Jay Ferguson D.O.
--- NOTE | 2020-12-12 09:00 | PC.NURSE ---
Pt called out and states that he is having increased right sided chest pain. EDP notified and requested a EKG and to give pts Nitro. Pt was given 1 does of Nitro and states that pain is gone.
[2020-12-12 10:03] LABS: Troponin I 0.116 ng/mL (0.000-0.034)
[2020-12-12] MEDS: HEPARIN SODIUM 5,000 UNITS/ML VIAL 4000 UNITS IV PUSH (10:31)
--- NOTE | 2020-12-12 10:42 | PC.NURSE ---
Pt called out stating that he is having chest pain. Verbal order by Dr. Lizarraga to give Nitro.
[2020-12-12] MEDS: NITROGLYCERIN SL 0.4 MG TABLET SUBLINGUAL (10:50)
[2020-12-12] MEDS: HEPARIN SOD/D5W 100 UNITS/ML 25,000 UNITS/250 ML BAG 10 UNITS IV CONT (10:52)
[2020-12-12 10:55] LABS: Basophils Absolute Auto 0.1 K/mm3 (0.0-0.1); Basophils Percent Auto 0.3 % (0.2-1.2); Eosinophils Absolute Auto 0.1 K/mm3 (0-0.3); Eosinophils Percent Auto 0.6 % (0-4.4); Hematocrit 37.1 % (42.0-52.0); Hemoglobin 12.2 g/dL (14.0-18.0); Immature Granulocyte Absolute 0.14 K/mm3 (0.00-0.031); Immature Granulocyte Percent A 0.8 % (0-0.5); Lymphocytes Absolute Auto 1.19 K/mm3 (0.9-3.2); Lymphocytes Percent Auto 6.8 % (18.3-44.2); Mean Corpuscular HGB Conc 32.9 g/dl (32-36); Mean Corpuscular Hemoglobin 28.2 pg (26-34); Mean Corpuscular Volume 85.9 fl (80-100); Mean Platelet Volume 10.4 fl (7.4-10.4); Monocytes Absolute Auto 1.6 K/mm3 (0.1-0.6); Monocytes Percent Auto 9.2 % (2.6-8.5); Neutrophils Absolute Auto 14.5 K/mm3 (1.3-6.7); Neutrophils Percent Auto 82.3 % (45.5-73.1); Platelet Count Result 111 k/mm3 (150-375); Red Blood Count 4.32 M/mm3 (4.6-6.20); Red Cell Distribution Width 13.4 % (11.5-14.5); White Blood Count 17.6 K/mm3 (4.5-10.0)
[2020-12-12 11:05] LABS: INR 1.3; Prothrombin Time 16.1 Seconds (11.1-14.7)
[2020-12-12 11:08] LABS: Partial Thromboplastin Time 142.2 SECONDS (22.3-36.8)
--- NOTE | 2020-12-12 12:56 | ADMGEN ---
This patient, David Álvarez, was admitted to IMU Room 231-01. Patient/family oriented to hospital policies and general routines including ID bracelet, bed and alarms, visiting hours, pain management, procedures, bathroom and other care routines, personal items, smoking policy, room service/diet, and visiting hours. Information on how to activate the Rapid Response Team has been discussed. Patient/Family are encouraged to report perceived risks to care and to ask questions if they do not understand what they are told or what they should do.
[2020-12-12] MEDS: MORPHINE SULFATE (*CRX) 2 MG/ML INJ IV PUSH ×2 (13:17→20:32)
--- NOTE | 2020-12-12 13:20 | ECG_ITS ---
Measurements Intervals [place] Rate: 108 P: [place]: 0 QRS: -19 QRSD: 99 T: 101 QT: 343 QTc: 461 Interpretive Statements SINUS TACHYCARDIA CONSIDER INFERIOR INFARCT, AGE INDETERMINATE ST-T WAVE ABNORMALITY IN ANTEROLAT/HIGH LAT LEADS- CONSIDER ISCHEMIA BASELINE ARTIFACT- II, III, AVL, AVF, V4-V6 ABNORMAL ECG Electronically Signed On 12-12-2020 14:38:21 CDT by Jay Ferguson D.O.
[2020-12-12 13:36] LABS: Troponin I 0.177 ng/mL (0.000-0.034)
[2020-12-12 13:42] LABS: Glucose Point of Care 419 mg/dl (65-105)
--- NOTE | 2020-12-12 14:05 | PM.IMHP ---
H&P: HPI History of Present Illness Date/Time: 12/12/20 14:05 this is a 65-year-old male patient who has a past medical history of coronary artery disease. The patient stated that he has been nauseated for the last couple days. He has not taken any of his medication or been able to eat anything. The patient stated that he started having left lower back pain 1 week ago. And then he was having some abdominal pain the last couple days as well as some nausea and vomiting for the last 2 days. The patient is also complaining of right flank pain. ( He has had a previous myocardial infarction with cardiogenic shock. Patient has had 4 stents in the past. The patient had a cardiac catheterization here 10/27/2019 and was placed on Impella then the patient was transferred to [facility]. According to the patient his Impella was replaced with a larger Impella since it was leaking and and artery was damaged and had to be repaired at [facility]. He stated that the right side of his chest was good open he and he had 4 stents placed at that time). Today patient's EKG was read as sinus rhythm consider inferior infarction age indeterminate. His white count was noted to be 17.6. H&H 12.2 and 37.1. His blood sugar was noted to be 323 and then 419. Initial troponin was negative. The 3 hour was 0.116 and 6 hours 0.177. The patient still continues to complain of nausea vomiting which chest pain. She complains of midsternal chest pain with abdominal pain to the right upper quadrant. Patient was started on heparin drip and given morphine. He was also given nitroglycerin on ceftriaxone in the emergency room. The patient is being admitted to inpatient services on the date of service of 12/12/2020. . Chief Complaint: Chest pain Review of Systems Review of Systems: All systems reviewed & are unremarkable except as noted in HPI and below Constitutional: Constitutional: Reports as per HPI and Reports no additional constitutional complaints Eyes: Eyes: Reports as per HPI and Reports no additional eye complaints ENT: Reports system reviewed and no additional complaints, except as documented and Reports Normal hearing present Cardiovascular: Cardiovascular: Reports no additional cardiovascular complaints Respiratory: Respiratory: Reports no additional respiratory complaints and Reports no additional respiratory complaints Gastrointestinal: Gastrointestinal: Reports as per HPI and Reports no additional gastrointestinal complaints Musculoskeletal: Musculoskeletal: Reports no additional musculoskeletal complaints Integumentary/Breasts: Skin/Breast: Reports system reviewed and no additional complaints, except as docu and Reports as per HPI Neurologic: Reports system reviewed and no additional complaints, except as documented, Reports as per HPI and Reports Normal hearing present Psychiatric: Psychiatric: Reports no additional psychiatric complaints and Reports as per HPI Endocrine: Endocrine: Reports no additional endocrine complaints Hematologic/Lymphatic: Hematologic/Lymphatic: Reports no additional hematologic/lymphatic complaints Allergic/Immunologic: Allergic/Immunologic: Reports no additional allergic/immunologic complaints [facility] Past Medical History Medical History (Updated 12/12/20 @ 14:52 by Bethanie Carmona NP) Blind Both eyes BPH (benign prostatic hyperplasia) Cardiogenic shock Chronic kidney disease, stage 3 Chronic pain COPD (chronic obstructive pulmonary disease) DM2 (diabetes mellitus, type 2) Erectile dysfunction Heart attack (~09/2019) Herpes simplex Hyperlipidemia Hypertension Hypertriglyceridemia Low testosterone Peripheral neuropathy Trigger finger Surgical History Surgical History (Updated 12/12/20 @ 14:46 by Bethanie Carmona NP) H/O hand surgery Left hand H/O skin graft of the right thigh as a child History of coronary artery stent placement Four cardiac stents [facility] via thoracotomy Hi
--- NOTE | 2020-12-12 14:11 | PM.CNCAR ---
Assessment and Plan Additional Plan 65-year-old man with: Multivessel coronary artery disease treated with high risk multivessel PCI summer of last year over at [facility]. He had low ejection fraction and cardiogenic shock at that time and his procedure was supported with an Impella 5.0. He enters the hospital here with acute coronary syndrome dynamic ST segment depression and in at a rising troponin level. He should of course be brought for angiography in this setting. He we will arrange for this soon as possible and determine revascularization strategy pending those findings. Colin Fontana MD [facility] History of Present Illness History of Present Illness Consult date/time: 12/12/20 14:11 Consult reason: chest pain Reason For Visit: nstemi/uti/enteritis/ckd Narrative: This is a 65-year-old man that I am seeing this afternoon at the request of the hospitalist because of what appears to be acute coronary syndrome. He is unknown to me prior to this encounter but apparently is follows with Dr. Choudhury of our practice. The patient was in his usual state of when he thinks is reasonably good health when over the last couple of days he started to feel unwell with nausea and chest pain. He states the symptoms began mildly about 2 days ago with waxing and waning nausea and chest pain that he did not seek much medical attention for. The nausea was problematic enough for he has not taken any of his oral medications. This includes dual anti-platelet therapy with aspirin and clopidogrel. He came to the emergency room are earlier this morning with these symptoms because they intensified. The notes in the emergency room say that he was given sublingual nitroglycerin as well as aspirin and he was anticoagulated with heparin. He according to the ER note became asymptomatic and was admitted to the IMU. His troponin levels were negative in the emergency room but have risen to 0.1 since then. His electrocardiogram in the emergency room looks relatively benign the subsequent tracing appear in the IMU shows anterolateral ST segment depression. He is in moderate distress in room 231 with nausea and some diaphoresis. He is also having [id number] central chest burning pain as well. He is known to have coronary artery disease and presented here just over a year ago with acute coronary syndrome at that time angiographically was found to have must severe multivessel coronary disease and very low ejection fraction about the picture of cardiogenic shock. He had an Impella device placed was transferred to [facility] for high-risk revascularization. According to the record surgery and PCI were discussed and he ended up undergoing Impella assisted PCI of the LAD, right coronary artery and OM 1 branch of the circumflex. He had a Impella 5 placed in the subclavian artery and had that removed surgically prior to discharge. After all of this he apparently recovered and has been doing well. Several months after that PCI his ejection fraction improved markedly by echo and was in the range of 66%. Patient also has longstanding diabetes with diabetic kidney disease and diabetic retinopathy he is blind for about 6 years. Review of Systems Constitutional: Constitutional: Reports fatigue Eyes: Comments: Patient is blind as mentioned above ENT: Reports system reviewed and no additional complaints, except as documented Cardiovascular: Cardiovascular: Reports as per HPI and Reports chest pain Respiratory: Respiratory: Reports no additional respiratory complaints Gastrointestinal: Gastrointestinal: Reports nausea Musculoskeletal: Musculoskeletal: Reports no additional musculoskeletal complaints Integumentary/Breasts: Skin/Breast: Reports system reviewed and no additional complaints, except as docu Neurologic: Comments: Very poor sensation in the lower extremities due to diabetic neuropathy Endocrine: Endocrine: Reports no additional endocrine complain
[2020-12-12] MEDS: PROCHLORPERAZINE EDISYLATE 10 MG/2 ML VIAL IV PUSH (14:21)
--- NOTE | 2020-12-12 14:30 | WPDMODSED ---
Moderate Sedation Note-Pt Data Patient Data Diagnosis: Acute coronary syndrome Present Complaint: chest pain /nausea Procedure to be performed/Plan: coronary angiography Allergies Allergy/AdvReac Type Severity Reaction Status Date / Time No Known Allergies Allergy Verified 12/12/20 12:53 Home Medications Medication Instructions Recorded Confirmed Type amlodipine 5 mg tablet 5 mg PO DAILY 05/25/19 12/12/20 History aspirin 81 mg tablet,delayed 81 mg PO DAILY 05/25/19 12/12/20 History release omeprazole 20 mg-sodium 1 cap PO DAILY 05/25/19 12/12/20 History bicarbonate 1.1 gram capsule rosuvastatin 40 mg tablet 40 mg PO DAILY #90 tablet 05/23/20 12/12/20 Rx flash glucose sensor #6 each 08/08/20 12/12/20 Rx carvedilol 6.25 mg tablet 6.25 mg PO BID tablet 08/18/20 12/12/20 History clopidogrel 75 mg tablet 75 mg PO DAILY 08/18/20 12/12/20 History finasteride 5 mg tablet 5 mg PO DAILY #90 tablet 09/05/20 12/12/20 Rx fluoxetine 20 mg tablet 20 mg PO DAILY #90 tablet 09/05/20 12/12/20 Rx insulin aspart U-100 100 unit/mL 25 unit SUB-Q TID #68 ml 09/19/20 12/12/20 Rx (3 mL) subcutaneous pen pregabalin 100 mg capsule 100 mg PO TID #270 cap 10/20/20 12/12/20 Rx montelukast 10 mg tablet See Rx Instructions .ROUTE 11/22/20 12/12/20 Rx .COMPLEX #90 tablet testosterone 20.25 mg/1.25 gram 6 pump TOPICAL DAILY #450 g 11/22/20 12/12/20 Rx (1.62 %) transdermal gel pump pen needle, diabetic 31 gauge x #200 each 12/07/20 12/12/20 Rx /16 insulin detemir U-100 [Levemir 80 unit SUB-Q Q12H 12/12/20 12/12/20 History FlexTouch U-100 Insuln] losartan 1 mg PO DAILY 12/12/20 12/12/20 History Current Medications: Active Medications Amlodipine Besylate (Amlodipine Besylate 5 Mg Tablet) 5 mg PO DAILY [facility] Carvedilol (Carvedilol 6.25 Mg Tablet) 6.25 mg PO BID [facility] Finasteride (Finasteride 5 Mg Tablet) 5 mg PO DAILY [facility] Fluoxetine HCl (Fluoxetine Hcl 20 Mg Capsule) 20 mg PO DAILY [facility] Heparin Sodium (Porcine) (Heparin Sodium 5,000 Units/Ml Vial) 4,000 units IV PUSH PRN PRN PRN Reason: aPTT less than 55 seconds Heparin Sodium (Porcine) (Heparin Sodium 5,000 Units/Ml Vial) 3,500 units IV PUSH PRN PRN PRN Reason: aPTT 55 - 70 seconds Heparin Sodium/Dextrose (Heparin Sodium/D5w 100 Units/Ml) 25,000 units in 250 mls @ 10 mls/hr IV CONT .Q24H [facility]; Protocol Last Admin: 12/12/20 10:52 Dose: 1,000 units/hr, 10 mls/hr Documented by: Acetaminophen (Ofirmev 1,000 Mg Ivpb) 1,000 mg in 100 mls @ 400 mls/hr IVPB Q6H PRN PRN Reason: Mild Pain (1-3) or Fever Stop: 12/13/20 10:51 Insulin Detemir (Insulin Detemir 100 Units/Ml) 80 units SUB-Q Q12HR [facility] Losartan Potassium (Losartan Potassium 100 Mg Tablet) 100 mg PO DAILY [facility] Montelukast Sodium (Montelukast Sodium 10 Mg Tablet) 10 mg BY MOUTH [facility] Morphine Sulfate (Morphine Sulfate (*Crx) 2 Mg/Ml Inj) 2 mg IV PUSH Q3H PRN PRN Reason: Pain Rated 7-10 Last Admin: 12/12/20 13:17 Dose: 2 mg Documented by: Nitroglycerin (Nitroglycerin 0.4 Mg/[place] Oral Btl (*Bkc)) 1 spray TRANSLINGU PRN PRN PRN Reason: Chest Pain Last Admin: 12/12/20 14:18 Dose: 1 spray Documented by: Non-Formulary Medication (Insulin Aspart U-100 [Novolog Flexpen U-100 Insulin]) 25 unit SUB-Q TID [facility] Stop: 01/11/21 16:59 Ondansetron HCl (Ondansetron Inj 4 Mg/2 Ml Vial) 4 mg IV PUSH Q4H PRN PRN Reason: Nausea Last Admin: 12/12/20 12:41 Dose: 4 mg Documented by: Pantoprazole Sodium (Pantoprazole Sodium Iv 40 Mg Vial) 40 mg IV PUSH Q12HR [facility] Pregabalin (Pregabalin (*Crx) 50 Mg Capsule) 100 mg PO TID [facility] Rosuvastatin Calcium (Rosuvastatin 10 Mg Tablet) 40 mg PO DAILY [facility] Sedation/Anesthesia: No previous sedation/anesthesia problems (including family history). [facility]LY [facility], [facility] Past Medical History Medical History (Updated 12/12/20 @ 14:17 by Bethanie Carmona NP) Blind Both eyes BPH (benign prostatic hyperplasia) Cardiogenic shock Chronic kidney disease, stage 3 baseline creatinine between 1.4-1.7 Chron
--- NOTE | 2020-12-12 16:03 | WPDCARDPROC ---
Cardiac Cath Procedure Note Date of procedure:: 12/12/20 Performing physician:: Colin Fontana MD Indication:: acute coronary syndrome Brief clinical history:: this is a 65-year-old diabetic patient with diffuse multivessel coronary disease. Last year he underwent high-risk multivessel PCI involving the mid LAD, om 2 and RCA. He presented with cardiogenic shock and underwent Impella assisted PCI at another hospital. He presents here now with 48 hours of waxing and waning ischemic chest pain he has dynamic anterior ST segment depression and modest troponin rise. Procedure Procedure performed:: Coronary angiogram intra-aortic balloon pump placement Sedation/Medication given:: Versed 2 mill case start 1527 hours case end time 3:52 p.m. sedation provided by Virgil Baldwin RN, trained observer Access site:: right femoral artery Estimated blood loss:: 15-20 cc Procedure note:: patient was brought to the cardiac catheterization lab in critical condition with chest pain that has now been waxing and waning for a couple of days with diaphoresis. At the start of the catheterization he Reported to be pain free. the right femoral triangle was prepped and draped in the usual fashion. Anesthesia was provided with 1% lidocaine infiltrated locally. Using the modified Seldinger technique a 5 Azerbaijani sheath was placed into the femoral artery and I used a standard 5 Azerbaijani FL4 catheter to engage inject the left coronary artery in multiple projections. After this the right coronary was engaged and injected using a 5 Azerbaijani JR4 catheter. The angiograms were then reviewed decision was made to place an intra-aortic balloon pump. The 5 Azerbaijani sheath was exchanged over the balloon pump wire and the balloon pump sheath was placed. After this the intra-aortic balloon pump was placed under fluoroscopic visualization into the descending aorta with the tip just below the aortic notch. Following this the pump was turned on and filled with one-to-one counterpulsation pumping being established. The patient's ACT was 167 I gave him an additional 5000 units of heparin and turned drip back on at 1000 units/hour. Balloon pump was sutured into position using 2 0 silk. The patient was taken to the ICU in stable but critical condition and plans are made for transfer the patient to tertiary care center for high-risk revascularization either CABG or PCI of the left main. Findings:: Hemodynamics: Central aortic pressure was 98/62. The left ventricle was not entered during this procedure the left main coronary artery is small to medium in caliber last year there was mild diffuse disease in the left main there is now at 99% complex appearing mid stenosis in the left main. The left anterior descending is a small to medium in caliber diffusely diseased artery. There is no significant flow-limiting disease in the LAD the stented segment in the mid portion remains patent. The circumflex is a moderate caliber artery which is diffusely disease. A very high proximal OM1 branch is totally occluded. A more substantially sized 2nd OM which was stented last year remains nicely patent. There is a posterior very small terminal circumflex branch that has a 90% stenosis unchanged from last year and not suitable for revascularization. The right coronary artery is moderate to large caliber dominant to the posterior circulation. The trunk of the RCA has stent material proximal segment down to the 3rd portion. This is widely patent without any significant loss of movement. There is a focal 80-90% stenosis in the midportion the small RPDA. Conclusion:: 1. Diffuse multivessel coronary disease with previous stents being placed in the mid LAD, OM2 and RCA which remain nicely patent. 2. Progression of mild disease in the left main to 99% mid subtotal stenosis of left main resulting in the patient's clinical instability and clinical presentation 3. intra-aortic balloon pump place
[2020-12-12 17:03] LABS: Activated Clotting Time 131 sec (74-137)
[2020-12-12] MEDS: SODIUM CHLORIDE 0.9% IV 1,000 ML 125 ML IV CONT (18:24)
[2020-12-12 18:42] LABS: Partial Thromboplastin Time 129.7 SECONDS (22.3-36.8)
[2020-12-12 19:20] LABS: Glucose Point of Care 475 mg/dl (65-105)
--- NOTE | 2020-12-12 19:30 | PC.NURSE ---
[facility] en [facility]. ETA of 30 minutes provided.
[2020-12-12] MEDS: INSULIN DETEMIR 100 UNITS/ML 80 UNITS SUB-Q (19:53)
[2020-12-12] MEDS: PANTOPRAZOLE SODIUM IV 40 MG VIAL IV PUSH (19:58)
--- NOTE | 2020-12-12 21:00 | PC.NURSE ---
[facility] updated ETA of 1 hour provided. [facility] contacted for transport. Will call back with potential ETA
--- NOTE | 2020-12-12 21:46 | PC.NURSE ---
[facility] unable to accept balloon pump patient. [facility] ETA 30 minutes.
--- NOTE | 2020-12-12 22:43 | PC.NURSE ---
[facility] updated ETA is 23:45. [facility] contacted. ETA of 2320 provided. [facility] dispatched and en rout.
--- NOTE | 2020-12-12 23:55 | PC.NURSE ---
Patient departs ICU with [facility] team. Balloon pump and monitoring equipment exchanged for [facility] monitoring equipment without issue. Patient denies complaints of pain at this time. Remains on 8L O2 per NC with no signs of respiratory distress. Elise, accepting RN, updated.
--- NOTE | 2021-01-23 17:29 | PM.TDS ---
Transfer Discharge Sum: Prov Provider Date of admission: 12/12/20 13:17 Primary care physician: Preston Sandoval PA-C Admitting clinician: Wade Dela Cruz MD Consults: 12/12/20 10:53 Consult to Physician Routine Comment: called by emergency Consulting Provider: Colin Fontana call center supervisor/MD group to consult: Marizol Reason for consultation: nstemi Has provider been notified: Yes DS: Admitting Diagnosis Discharge Date 12/12/20 Admitting Diagnosis Acute coronary syndrome DS: Discharge Diagnosis Discharge Diagnosis (1) Non-ST elevation NM (NSTEMI): Code(s): I21.4 - Non-ST elevation (NSTEMI) myocardial infarction Status: Acute Transfer Discharge Sum: Med Medications Active and Home Medications: Home Medications amlodipine 5 mg tablet 5 mg PO DAILY 05/25/19 [History Confirmed 12/12/20] aspirin 81 mg tablet,delayed release 81 mg PO DAILY 05/25/19 [History Confirmed 12/12/20] omeprazole 20 mg-sodium bicarbonate 1.1 gram capsule 1 cap PO DAILY 05/25/19 [History Confirmed 12/12/20] rosuvastatin 40 mg tablet 40 mg PO DAILY #90 tablet 05/23/20 [Rx Confirmed 12/12/20] flash glucose sensor #6 each 08/08/20 [Rx Confirmed 12/12/20] carvedilol 6.25 mg tablet 6.25 mg PO BID tablet 08/18/20 [History Confirmed 12/12/20] clopidogrel 75 mg tablet 75 mg PO DAILY 08/18/20 [History Confirmed 12/12/20] finasteride 5 mg tablet 5 mg PO DAILY #90 tablet 09/05/20 [Rx Confirmed 12/12/20] fluoxetine 20 mg tablet 20 mg PO DAILY #90 tablet 09/05/20 [Rx Confirmed 12/12/20] insulin aspart U-100 100 unit/mL (3 mL) subcutaneous pen 25 unit SUB-Q TID #68 ml 09/19/20 [Rx Confirmed 12/12/20] pregabalin 100 mg capsule 100 mg PO TID #270 cap 10/20/20 [Rx Confirmed 12/12/20] montelukast 10 mg tablet See Rx Instructions .ROUTE .COMPLEX #90 tablet 11/22/20 [Rx Confirmed 12/12/20] testosterone 20.25 mg/1.25 gram (1.62 %) transdermal gel pump 6 pump TOPICAL DAILY #450 g 11/22/20 [Rx Confirmed 12/12/20] pen needle, diabetic 31 gauge x 08/14 #200 each 12/07/20 [Rx Confirmed 12/12/20] losartan 1 mg PO DAILY 12/12/20 [History Confirmed 12/12/20] insulin detemir U-100 100 unit/mL (3 mL) subcutaneous pen See Rx Instructions .ROUTE .COMPLEX #48 milliliter 01/17/21 [Rx] Transfer Discharge Sum: Hosp Hospital Course Hospital course: David Álvarez is a 65 year old male with a history of coronary artery disease who previously underwent Impella assisted multivessel PCI at another institution. He presented [facility] with wax and wane and waning ischemic chest pain and dynamic ST and T changes electrocardiographically. He also had a modest troponin rise. He was brought to the cardiac laboratory assistant and found to have patent stents in the LAD, circumflex and RCA but with progression in his left main disease to 99% stenosis. Given these findings he had an intra-aortic balloon pump placed and was heparinized and transferred to [place] for either surgical myocardial revascularization or very high risk PCI. Time Spent with Patient Time attestation: Total time spent providing and/or coordinating transfer services: Exam Const: Other: Overweight white male no immediate distress HENMT: Mouth: Yes moist mucous membranes Eyes: Sclera: sclerae normal Pupils: Equal, round and reactive pupils present Neck: Other: Difficult to assess JVD with thick neck no carotid bruits noted normal carotid upstrokes Resp: Effort & Inspection: normal respiratory effort Auscultation: clear to auscultation bilaterally Cardio: Other: PMI not palpable first and second heart sounds normal no audible murmur GI: GI Palp: Yes Soft to palpation Auscultation: normal bowel sounds Skin: General skin exam: normal color Neuro: Cognition (Neuro): normal cognition Extrem: Other: No edema adequate distal pulses
== END 2020-12-12 23:55 | disposition short-term general hospital (02) | DRG 271 ==
LOC: ANHED 06:42 → ANHIMU 11:26 → ANHICU 17:22 → ANHIMU 12-13 14:28
PROVIDERS: Emergency Medicine; Admitting Provider Internal Medicine; Emergency Provider Emergency Medicine; PCP Physician Assistant; Visit Provider Specialist
PROC: 5A02210 Assistance with Cardiac Output using Balloon Pump, Continuous (ICD-10-PCS; 2020-12-12 14:30)
PROC: 5A02210 Assistance with Cardiac Output using Balloon Pump, Continuous (ICD-10-PCS; CPT 93454; 2020-12-12 14:30)
DX: I21.4 Non-ST elevation (NSTEMI) myocardial infarction (principal); N39.0 Urinary tract infection, site not specified; I25.10 Atherosclerotic heart disease of native coronary artery without angina pectoris; E11.22 Type 2 diabetes mellitus with diabetic chronic kidney disease; I12.9 Hypertensive chronic kidney disease with stage 1 through stage 4 chronic kidney disease, or unspecified chronic kidney disease; N18.30 Chronic kidney disease, stage 3 unspecified; E11.42 Type 2 diabetes mellitus with diabetic polyneuropathy; E11.319 Type 2 diabetes mellitus with unspecified diabetic retinopathy without macular edema; E78.2 Mixed hyperlipidemia; K80.20 Calculus of gallbladder without cholecystitis without obstruction; N40.0 Benign prostatic hyperplasia without lower urinary tract symptoms; J44.9 Chronic obstructive pulmonary disease, unspecified; Z95.5 Presence of coronary angioplasty implant and graft; Z79.4 Long term (current) use of insulin; Z79.82 Long term (current) use of aspirin; Z79.899 Other long term (current) drug therapy
CPT/HCPCS: 33967; 36415; 71045; 74176; 80053; 81001; 82948; 83690; 83880; 84484; 85025; 85610; 85730; 87040; 87077; 87086; 87088; 87186; 93005; 93454; 96365; 96366; 96367; 96375; 96376; 99285; A9270; C1887; C1894; C9113; G0378; J0696; J0780; J1644; J1815; J2250; J2270; J2405; J3010; J7030; J7040

== ENCOUNTER 2021-01-27 13:01 | Emergency (ER) | payer BC, SELFPAY ==
--- NOTE | ~2021-01-27 | XR_ITS ---
XR abdomen/kub 1V 01/27/2021 18:01 INDICATION: History of UTI. Prostate pain. TECHNIQUE: KUB COMPARISON: 10/27/2019 FINDINGS: Bowel gas pattern is normal. There is no evidence of free air, mass, organomegaly, ascites or obstruction. No abnormal calculi are seen. The bones appear intact. There are pelvic phlebolith s. There are calcifications of the seminal vesicles. IMPRESSION: 1: No acute abdominal abnormality identified. Reviewed, dictated and finalized at location A.
[2021-01-27 14:47] VITALS: BP 117/55; PULSE 72; RESP 18; TEMP 36.2; O2SAT 100
[2021-01-27 15:24] LABS: Add Urine Microscopic? YES; Appearance Urine Cloudy (Clear); Bilirubin Urine Negative (Negative); Blood Urine 1+ (Negative); Color Urine Amber (Yellow); Glucose Urine UA Negative (Negative); Ketones Urine Negative (Negative); Leukocyte Esterase Ur Negative LEU/UL (Negative); Mucus Urine Few /lpf; Nitrate Urine Negative (Negative); Protein Urine 3+ mg/dL (Negative); Specific Grav Ur 1.028 (1.001-1.035); Squamous Epithelial Cell Urine Rare /hpf (Few)
[2021-01-27 17:37] VITALS: BP 132/58; PULSE 75; RESP 16; O2SAT 98
--- NOTE | 2021-01-27 18:43 | ED.MALEGU ---
HPI - Male Genitourinary General Chief complaint: Urogenital-Male Stated complaint: bladder pain Time Seen by Provider: 01/27/21 17:43 Source: patient and family Mode of arrival: ambulatory Limitations: no limitations History of Present Illness HPI Narrative: 65-year-old male Here because of urinary difficulty and constipation Patient was seen here a little over a month ago and ultimately transferred to [facility] for an PA and was hospitalized there for about a week At that time he had a Tejada catheter in for he believes about 6 days Has had a lot of urinary difficulty since then, dysuria, hesitancy, and voiding small amounts He has a follow-up urology appointment with somebody at [place], he is not sure whom, in early March He also has been having difficulty moving his bowels and does not recall having a bowel movement possibly since last weekend Came to the ED tonight because of pain, which she is primarily experiencing in the tip of his penis, or a feeling like somebody kicked me Related Data Home Medications Medication Instructions Recorded Confirmed aspirin 81 mg tablet,delayed 81 mg PO DAILY 05/25/19 12/12/20 release omeprazole 20 mg-sodium 1 cap PO DAILY 05/25/19 12/12/20 bicarbonate 1.1 gram capsule carvedilol 6.25 mg tablet 6.25 mg PO BID tablet 08/18/20 12/12/20 clopidogrel 75 mg tablet 75 mg PO DAILY 08/18/20 12/12/20 Allergies Allergy/AdvReac Type Severity Reaction Status Date / Time No Known Allergies Allergy Verified 01/25/21 10:25 Review of Systems Review of Systems: All systems reviewed & are unremarkable except as noted in HPI and below Constitutional: Constitutional: Reports no additional constitutional complaints, Denies chills, Reports fatigue, Denies fever(s) and Denies headache(s) Eyes: Eyes: Reports no additional eye complaints and Denies change in vision ENT: Denies headache(s) and Denies sore throat Cardiovascular: Cardiovascular: Denies chest pain and Denies dyspnea Respiratory: Respiratory: Denies cough and Denies dyspnea Gastrointestinal: Gastrointestinal: Reports abdominal pain, Reports constipation, Denies diarrhea, Reports nausea and Denies vomiting Genitourinary: Genitourinary: Reports oliguria, Reports dysuria, Reports testicular pain and Reports urinary frequency Musculoskeletal: Musculoskeletal: Denies deformity, Denies arthralgias, Denies joint swelling and Denies numbness Integumentary/Breasts: Skin/Breast: Denies rash and Denies wounds Neurologic: Denies headache(s), Denies focal weakness and Denies numbness Psychiatric: Psychiatric: Reports no additional psychiatric complaints Endocrine: Endocrine: Reports no additional endocrine complaints Hematologic/Lymphatic: Hematologic/Lymphatic: Reports no additional hematologic/lymphatic complaints Allergic/Immunologic: Allergic/Immunologic: Reports no additional allergic/immunologic complaints [facility] Past Medical History Medical History Blind Both eyes BPH (benign prostatic hyperplasia) Cardiogenic shock Chronic kidney disease, stage 3 Chronic pain COPD (chronic obstructive pulmonary disease) DM2 (diabetes mellitus, type 2) Erectile dysfunction Heart attack (~09/2019) Herpes simplex Hyperlipidemia Hypertension Hypertriglyceridemia Low testosterone Peripheral neuropathy Trigger finger Surgical History Surgical History H/O hand surgery Left hand H/O skin graft of the right thigh as a child History of coronary artery stent placement Four cardiac stents [facility] via thoracotomy History of knee surgery Family History Family History Grandparent Diabetes mellitus Mother Tuberculosis Dementia Father Dementia Hx of CABG in his early 60s Social History Social History (Reviewed 01/27/21 @ 18:47 by Kailee
[2021-01-27 18:57] VITALS: BP 139/70; PULSE 69; RESP 16; O2SAT 100
[2021-01-27 19:00] LABS: Basophils Percent Auto 0.1 % (0.2-1.2); Eosinophils Absolute Auto 0.1 K/mm3 (0-0.3); Eosinophils Percent Auto 0.6 % (0-4.4); Hematocrit 31.5 % (42.0-52.0); Immature Granulocyte Absolute 0.05 K/mm3 (0.00-0.031); Immature Granulocyte Percent A 0.3 % (0-0.5); Lymphocytes Absolute Auto 1.29 K/mm3 (0.9-3.2); Mean Corpuscular HGB Conc 31.7 g/dl (32-36); Mean Corpuscular Hemoglobin 26.2 pg (26-34); Mean Corpuscular Volume 82.7 fl (80-100); Mean Platelet Volume 9.7 fl (7.4-10.4); Monocytes Absolute Auto 0.8 K/mm3 (0.1-0.6); Monocytes Percent Auto 5.7 % (2.6-8.5); Neutrophils Absolute Auto 12.1 K/mm3 (1.3-6.7); Neutrophils Percent Auto 84.3 % (45.5-73.1); Platelet Count Result 226 k/mm3 (150-375); Red Blood Count 3.81 M/mm3 (4.6-6.20); Red Cell Distribution Width 13.7 % (11.5-14.5); White Blood Count 14.3 K/mm3 (4.5-10.0)
[2021-01-27 19:10] LABS: Anion Gap 11 mmol/L (8-16); Blood Urea Nitrogen 38 mg/dL (9-20); Calcium 9.1 mg/dL (8.4-10.2); Carbon Dioxide 24 mmol/L (22-30); Chloride 102 mmol/L (98-107); Estimated CRCL calculation 30 ml/min; Estimated Glomerular Filt Rate 27; Glucose 114 mg/dL (65-110); Potassium 4.9 mmol/L (3.4-5.0); Sodium 137 mmol/L (137-145)
--- NOTE | 2021-01-27 19:13 | PC.NURSE ---
Pt demanding urinary catheter be removed. Catheter removed.
[2021-01-27 20:00] LABS: Prostate Specific Antigen 2.3 ng/mL (< OR = 4.0)
[2021-01-27 20:22] VITALS: BP 143/80; PULSE 87; RESP 16; O2SAT 99
== END 2021-01-27 20:38 | disposition home or self-care (01) ==
PROVIDERS: Emergency Provider Emergency Medicine; PCP Family Medicine
DX: N41.9 Inflammatory disease of prostate, unspecified (principal); N40.0 Benign prostatic hyperplasia without lower urinary tract symptoms; E11.22 Type 2 diabetes mellitus with diabetic chronic kidney disease; I12.9 Hypertensive chronic kidney disease with stage 1 through stage 4 chronic kidney disease, or unspecified chronic kidney disease; N18.30 Chronic kidney disease, stage 3 unspecified; I25.2 Old myocardial infarction; J44.9 Chronic obstructive pulmonary disease, unspecified; E78.5 Hyperlipidemia, unspecified; E11.42 Type 2 diabetes mellitus with diabetic polyneuropathy; Z95.5 Presence of coronary angioplasty implant and graft; Z87.891 Personal history of nicotine dependence; Z79.82 Long term (current) use of aspirin; Z79.4 Long term (current) use of insulin
CPT/HCPCS: 36415; 51702; 74018; 80048; 81001; 84153; 85025; 87086; 99283

== ENCOUNTER 2021-05-04 20:31 | Observation (INO) | payer BC, SELFPAY ==
[2021-05-04] VITALS (27 sets, daily range): BP systolic 105–159; BP diastolic 46–75; PULSE 67–86; RESP 13–25; TEMP 36.7; O2SAT 94–98
--- NOTE | ~2021-05-04 | XR_ITS ---
EXAMINATION: XR chest 2V EXAM DATE: 05/04/2021 21:05 INDICATION: SOB, Dyspnea, Cough Today Hx Mi,Chf, Coronary Stent . TECHNIQUE: Frontal and lateral projections of the chest obtained and reviewed. Comparison is made to prior examination from 12/12/2020. FINDINGS: Cardiomegaly, congestion. There is indistinct reticulation with a bibasal predominance whi ch may indicate pulmonary edema. No sizable pleural effusion. No pneumothorax. IMPRESSION: Findings consistent with CHF exacerbation. Reviewed, dictated and finalized at location G. NTATION AND MOBILITY SPECIALIST
--- NOTE | ~2021-05-04 | XR_ITS ---
EXAMINATION: XR chest 1V portable 05/06/2021 12:03 INDICATION: Shortness of breath. PROCEDURE: AP portable chest COMPARISON: Comparison to multiple prior studies sequentially, with oldest reviewed study dated 10/25. FINDINGS: The lungs are clear. The cardiomediastinal silhouette is within normal limits. There are no pleural effusions. There is no pneumothorax suspected. IMPRESSION: 1: NO ACUTE CARDIOPULMONARY DISEASE. Reviewed, dictated and finalized at location A. [employer] OPERATOR
--- NOTE | 2021-05-04 20:42 | ECG_ITS ---
Measurements Intervals [place] Rate: 80 P: 24 IN: 153 QRS: -14 QRSD: 79 T: 71 QT: 363 QTc: 420 Interpretive Statements SINUS RHYTHM POSSIBLE LEFT ATRIAL ENLARGEMENT CONSIDER INFERIOR INFARCT, AGE INDETERMINATE BORDERLINE ST-T WAVE ABNORMALITY- HIGH LATERAL LEADS BASELINE ARTIFACT- II, III, AVR, AVF ABNORMAL ECG Electronically Signed On 05-05-2021 6:38:11 [employer] by Jay Ferguson D.O.
--- NOTE | 2021-05-04 20:46 | ED.GENADULT ---
HPI - General Adult General Chief complaint: Shortness of Breath/Dyspnea Stated complaint: DYSPNEA Time Seen by Provider: 05/04/21 20:41 Source: patient, EMS and old records reviewed Mode of arrival: EMS History of Present Illness HPI narrative: 65-year-old male with history of type 2 diabetes, coronary artery disease and congestive heart failure with COPD presents emerged department for evaluation of worsening shortness of breath. Patient is unsure of when his symptoms started. Patient called EMS for the symptoms and patient was found to have a congested sided exam along with hypertension. Patient was put on CPAP during transport and was given nitro. Upon arrival to the emerge department patient was placed on BiPAP. Patient's blood pressure was improved upon arrival to the emergency department. Patient denies any chest pain but does report shortness of breath. Related Data Home Medications Medication Instructions Recorded Confirmed aspirin 81 mg tablet,delayed 81 mg PO DAILY 05/25/19 05/05/21 release omeprazole 20 mg-sodium 1 cap PO DAILY 05/25/19 05/05/21 bicarbonate 1.1 gram capsule carvedilol 6.25 mg tablet 6.25 mg PO BID tablet 08/18/20 05/05/21 clopidogrel 75 mg tablet 75 mg PO DAILY 08/18/20 05/05/21 Levemir FlexTouch U-100 Insuln 80 unit SUBCUT BID 05/05/21 05/05/21 amlodipine 5 mg PO DAILY 05/05/21 05/05/21 montelukast 10 mg PO DAILY 05/05/21 05/05/21 tamsulosin [Flomax] 0.4 mg PO BID 05/05/21 05/05/21 Allergies Allergy/AdvReac Type Severity Reaction Status Date / Time No Known Allergies Allergy Verified 05/04/21 20:59 Review of Systems Review of Systems: CONSTITUTIONAL: Generalized fatigue and exertional shortness of breath EYES: Denies visual changes, redness, or discharge. ENT: Denies rhinorrhea, congestion, sore throat, or otalgia. CARDIOVASCULAR: Denies chest pain, palpitations, or edema. RESPIRATORY: Does report cough and shortness of breath GASTROINTESTINAL: Denies abdominal pain, nausea, vomiting, or diarrhea. GENITOURINARY: Denies dysuria or hematuria. SKIN: Denies rash or itching. MUSCULOSKELETAL: Denies back pain, joint pain, or myalgia. NEUROLOGIC: Denies headache, numbness, or weakness. PSYCHIATRIC: Denies anxiety or depression. All systems reviewed & are unremarkable except as noted in HPI and below PMFSH Past Medical History Medical History (Updated 05/06/21 @ 09:49 by Eitan Paulino MD) Blind Both eyes BPH (benign prostatic hyperplasia) Cardiogenic shock Chronic kidney disease, stage 3 Chronic pain COPD (chronic obstructive pulmonary disease) DM2 (diabetes mellitus, type 2) Erectile dysfunction Heart attack (~09/2019) Herpes simplex Hyperlipidemia Hypertension Hypertriglyceridemia Low testosterone Peripheral neuropathy Trigger finger Surgical History Surgical History H/O hand surgery Left hand H/O skin graft of the right thigh as a child History of coronary artery stent placement Four cardiac stents [facility] via thoracotomy History of knee surgery Family History Family History Grandparent Diabetes mellitus Mother Tuberculosis Dementia Father Dementia Hx of CABG in his early 60s Social History Social History Social History: The patient has 2 biologic biological children and his has 1 adopted child Primary care physician: Dr. Courtney Bauer Code status: Full code Smoking status: Former smoker Second hand tobacco smoke exposure: Yes Smoking end date: 04/01/74 Alcohol intake: former Substance use: never Substance use type: does not use Additional living arrangements comments: he lives with his and therefore adopted children. They down to the children in the fall of 2017. Additional occupation/education comments: Patient is disab
[2021-05-04] MEDS: ONDANSETRON INJ 4 MG/2 ML VIAL IV PUSH (20:50)
[2021-05-04 20:58] LABS: Glucose Point of Care 255 mg/dl (65-105)
[2021-05-04 21:09] LABS: Basophils Percent Auto 0.2 % (0.2-1.2); Eosinophils Absolute Auto 0.1 K/mm3 (0-0.3); Eosinophils Percent Auto 1.4 % (0-4.4); Hematocrit 36.5 % (42.0-52.0); Hemoglobin 11.5 g/dL (14.0-18.0); Immature Granulocyte Absolute 0.01 K/mm3 (0.00-0.031); Immature Granulocyte Percent A 0.2 % (0-0.5); Lymphocytes Absolute Auto 1.07 K/mm3 (0.9-3.2); Lymphocytes Percent Auto 25.1 % (18.3-44.2); Mean Corpuscular HGB Conc 31.5 g/dl (32-36); Mean Corpuscular Hemoglobin 26.9 pg (26-34); Mean Corpuscular Volume 85.3 fl (80-100); Mean Platelet Volume 10.8 fl (7.4-10.4); Monocytes Absolute Auto 0.7 K/mm3 (0.1-0.6); Monocytes Percent Auto 15.5 % (2.6-8.5); Neutrophils Absolute Auto 2.5 K/mm3 (1.3-6.7); Neutrophils Percent Auto 57.6 % (45.5-73.1); Platelet Count Result 103 k/mm3 (150-375); Red Blood Count 4.28 M/mm3 (4.6-6.20); Red Cell Distribution Width 16.6 % (11.5-14.5); White Blood Count 4.3 K/mm3 (4.5-10.0)
[2021-05-04 21:19] LABS: Prothrombin Time 13.3 Seconds (11.1-14.7)
[2021-05-04 21:20] LABS: Partial Thromboplastin Time 29.1 SECONDS (22.3-36.8)
[2021-05-04 21:23] LABS: Alanine Aminotransferase 32 U/L (4-50); Alkaline Phosphatase 69 U/L (38-126); Anion Gap 8 mmol/L (8-16); Aspartate Amino Transferase 42 U/L (17-59); Bilirubin,Total 0.4 mg/dL (0.2-1.3); Blood Urea Nitrogen 24 mg/dL (9-20); Calcium 8.9 mg/dL (8.4-10.2); Carbon Dioxide 23 mmol/L (22-30); Chloride 104 mmol/L (98-107); Estimated CRCL calculation 36 ml/min; Estimated Glomerular Filt Rate 34; Glucose 263 mg/dL (65-110); Potassium 3.8 mmol/L (3.4-5.0); Sodium 135 mmol/L (137-145)
[2021-05-04 21:33] LABS: NT Pro B Type Natriuretic Pept 1890 pg/mL (5-100); Troponin I 0.027 ng/mL (0.000-0.034)
--- NOTE | 2021-05-04 21:38 | PM.IMHP ---
H&P: HPI History of Present Illness Date/Time: 05/04/21 21:38 Chief Complaint: Generalized malaise Narrative: This is a 65-year-old male with past medical history significant for type 2 diabetes mellitus, bilateral blindness, coronary artery disease, dyslipidemia, benign prostatic hyperplasia, congestive heart failure, COPD, chronic kidney disease, peripheral neuropathy diabetes. Patient presents to the emergency room for evaluation after having generalized malaise body aches and pains for the last several days however denies any chills, any rigors,no cough ,no sputum production, no shortness of breath. Patient denies any sick contacts at home he lives with his . Preliminary workup was significant for chest x-ray consistent with congestive heart failure changes, creatinine of 2. Patient tested positive for COVID 19 novel virus Decision has been made to admit the patient for further evaluation management and treatment. Review of Systems Review of Systems: Generalized malaise, shortness of breath, body aches and pains. Constitutional: Constitutional: Denies chills, Denies fatigue, Denies fever(s), Reports malaise, Denies night sweats and Reports weakness Eyes: Comments: Bilateral blindness ENT: Denies dysphagia, Denies vertigo, Denies dizziness, Denies nasal congestion, Denies nasal discharge, Denies nasal obstruction and Denies odynophagia Cardiovascular: Cardiovascular: Denies pedal edema, Denies leg edema, Denies lightheadedness, Denies radiating jaw, neck or arm pain, Denies palpitations, Denies dyspnea on exertion and Denies orthopnea Respiratory: Respiratory: Denies cough, Denies excessive phlegm production, Reports dyspnea and Denies wheezing Gastrointestinal: Gastrointestinal: Denies abdominal pain, Denies dyspepsia, Denies heartburn, Denies diarrhea, Denies nausea and Denies vomiting Genitourinary: Genitourinary: Denies dysuria and Denies flank pain Musculoskeletal: Musculoskeletal: Reports myalgias Integumentary/Breasts: Skin/Breast: Denies rash Neurologic: Denies focal weakness and Denies Sensory deficit (Neuro) Psychiatric: Psychiatric: Reports no additional psychiatric complaints and Reports as per HPI Endocrine: Endocrine: Denies cold intolerance, Denies heat intolerance, Denies polyphagia, Denies polydipsia, Denies polyuria and Denies palpitations Hematologic/Lymphatic: Hematologic/Lymphatic: Reports no additional hematologic/lymphatic complaints and Reports as per HPI Allergic/Immunologic: Allergic/Immunologic: Reports no additional allergic/immunologic complaints and Reports as per HPI PMFSH Past Medical History Medical History (Updated 05/05/21 @ 02:22 by Soham Olvera MD) Blind Both eyes BPH (benign prostatic hyperplasia) Cardiogenic shock Chronic kidney disease, stage 3 Chronic pain COPD (chronic obstructive pulmonary disease) DM2 (diabetes mellitus, type 2) Erectile dysfunction Heart attack (~09/2019) Herpes simplex Hyperlipidemia Hypertension Hypertriglyceridemia Low testosterone Peripheral neuropathy Trigger finger Surgical History Surgical History H/O hand surgery Left hand H/O skin graft of the right thigh as a child History of coronary artery stent placement Four cardiac stents [facility] via thoracotomy History of knee surgery Family History Family History Grandparent Diabetes mellitus Mother Tuberculosis Dementia Father Dementia Hx of CABG in his early 60s Social History Social History Social History: The patient has 2 biologic biological children and his has 1 adopted child Primary care physician: Dr. Courtney Bauer Code status: Full code Smoking status: Former smoker Second hand tobacco smoke exposure: Yes Smoking end date: 04/01/74 Alcohol intake: for
[2021-05-04 21:45] LABS: SARS-CoV-2 RNA PCR Positive
[2021-05-04] MEDS: FUROSEMIDE INJ 40 MG/4 ML VIAL IV PUSH (21:52)
[2021-05-04 23:05] LABS: Creatine Kinase 104 U/L (55-170)
[2021-05-05] VITALS (12 sets, daily range): BP systolic 131–160; BP diastolic 53–71; PULSE 60–90; RESP 16–20; TEMP 36.1–36.8; O2SAT 95–98; BMI 28.5
[2021-05-05 00:38] LABS: Troponin I 0.031 ng/mL (0.000-0.034)
--- NOTE | 2021-05-05 01:02 | PC.NURSE ---
PT ARRIVED STABLE TO ROOM 315.
[2021-05-05 01:22] LABS: Glucose Point of Care 293 mg/dl (65-105)
--- NOTE | 2021-05-05 02:48 | PC.NURSE ---
05/05/2021 0040 PT DOES NOT KNOW THE NAMES OF ALL HIS HOME MEDICATIONS. PT DID NOT WANT ME TO CALL HIS SPOUSE AT THIS TIME TO CONFIRM HIS HOME MEDS.
[2021-05-05] MEDS: ALBUTEROL SULFATE (*SP) INHALER 2 PUFF INHALATION ×4 (05:25→23:43)
[2021-05-05 05:40] LABS: Troponin I 0.029 ng/mL (0.000-0.034)
[2021-05-05 08:48] LABS: Glucose Point of Care 400 mg/dl (65-105)
[2021-05-05] MEDS: INSULIN ASPART (*BKC) 100 UNITS/ML SUB-Q ×2 (08:57→11:58)
[2021-05-05] MEDS: FUROSEMIDE INJ 40 MG/4 ML VIAL IV PUSH ×2 (08:57→21:21)
[2021-05-05] MEDS: INSULIN GLARGINE (*BKC) 100 UNITS/ML 20 UNITS SUB-Q (08:59)
[2021-05-05 11:57] LABS: Glucose Point of Care > 500 mg/dl (65-105)
[2021-05-05] MEDS: INSULIN ASPART (*BKC) 100 UNITS/ML 10 UNITS SUB-Q ×2 (12:03→22:15)
[2021-05-05] MEDS: INSULIN GLARGINE (*BKC) 100 UNITS/ML 50 UNITS SUB-Q ×2 (12:03→21:21)
[2021-05-05] MEDS: PREGABALIN (*CRX) 50 MG CAPSULE 100 MG PO ×2 (12:04→21:22)
[2021-05-05 14:13] LABS: Glucose Point of Care > 500 mg/dl (65-105)
[2021-05-05] MEDS: ROSUVASTATIN 10 MG TABLET 40 MG PO (14:56)
[2021-05-05] MEDS: ASPIRIN 81 MG ENTERIC TABLET PO (14:56)
[2021-05-05] MEDS: INSULIN ASPART (*BKC) 100 UNITS/ML 25 UNITS SUB-Q ×2 (14:56→17:22)
[2021-05-05] MEDS: amLODIPine BESYLATE 5 MG TABLET PO (14:56)
[2021-05-05] MEDS: FINASTERIDE 5 MG TABLET PO (14:56)
[2021-05-05] MEDS: FLUoxetine HCL 20 MG CAPSULE PO (14:56)
[2021-05-05] MEDS: PANTOPRAZOLE 40 MG TABLET PO (14:56)
--- NOTE | 2021-05-05 16:04 | PM.IMPN ---
Progress Note: A&P Assessment and Plan (1) COVID: Code(s): U07.1 - COVID-19 Status: Acute Assessment and Plan: Admit to regular medical floor Supportive care Chest x-ray reviewed 05/05/2021 interval history: patient with COVID-19 being treated with dexamethasone as patient is requiring 2 L of oxygen, unable to started remdesivir as patient creatinine is elevated with a GFR of 34, will continue to monitor patient remains clinically stable has no new complaint, states not a short of breath as when he arrived. (2) CHF (congestive heart failure): Qualifiers: Heart failure chronicity: acute on chronic Heart failure type: unspecified Qualified Code(s): I50.9 - Heart failure, unspecified Code(s): I50.9 - Heart failure, unspecified Status: Acute Assessment and Plan: Gentle diuresis Monitor daily intake and output (3) Chronic kidney disease, stage 3: Qualifiers: Chronic kidney disease stage 3 subtype: stage 3a (GFR 45-59) Qualified Code(s): N18.31 - Chronic kidney disease, stage 3a Code(s): N18.3 - Chronic kidney disease, stage 3 (moderate) Status: Acute Assessment and Plan: BUN and creatinine at patient's baseline Continue to monitor Daily BMP (4) DM2 (diabetes mellitus, type 2): Qualifiers: Diabetes mellitus financial engineer insulin use: with financial engineer use Diabetes mellitus complication status: with other specified complication Qualified Code(s): E11.69 - Type 2 diabetes mellitus with other specified complication; Z79.4 - intermediate (current) use of insulin Code(s): E11.9 - Type 2 diabetes mellitus without complications Status: Chronic Assessment and Plan: Heart healthy calorie consistent 1800 calorie diet Accu-Cheks AC and HS 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: Code(s): E11.39 - Type 2 diabetes mellitus with other diabetic ophthalmic complication; H54.8 - Legal blindness, as defined in [place] Status: Acute Assessment and Plan: For precautions (6) Gastroesophageal reflux disease: Qualifiers: Esophagitis presence: esophagitis presence not specified Qualified Code(s): K21.9 - Gastro-esophageal reflux disease without esophagitis Code(s): K21.9 - Gastro-esophageal reflux disease without esophagitis Status: Acute Assessment and Plan: PPI as needed (7) Peripheral neuropathy: Qualifiers: Peripheral neuropathy type: polyneuropathy associated with underlying disease Qualified Code(s): G63 - Polyneuropathy in diseases classified elsewhere Code(s): G62.9 - Polyneuropathy, unspecified Status: Acute Assessment and Plan: Continue Pregabalin. (8) COPD (chronic obstructive pulmonary disease): Code(s): J44.9 - Chronic obstructive pulmonary disease, unspecified Status: Acute Assessment and Plan: Breathing treatments q.4 hours Will start on dexamethasone Subjective Date/time seen: 05/05/21 16:04 This is a 65-year-old male with past medical history significant for type 2 diabetes mellitus, bilateral blindness, coronary artery disease, dyslipidemia, benign prostatic hyperplasia, congestive heart failure, COPD, chronic kidney disease, peripheral neuropathy diabetes. Patient presents to the emergency room for evaluation after having generalized malaise body aches and pains for the last several days however denies any chills, any rigors,no cough ,no sputum production, no shortness of breath. Patient denies any sick contacts at home he lives with his . Preliminary workup was significant for chest x-ray consistent with congestive heart failure changes, creatinine of 2. Patient tested positive for COVID 19 novel virus Decision has been made to admit the patient for further evaluation management and treatment. 05/05/2021 interval history: patient with COVID-19 being treated with dexamethasone as patient is requiring 2 L of oxygen, u
[2021-05-05 17:07] LABS: Glucose Point of Care > 500 mg/dl (65-105)
[2021-05-05] MEDS: carvediloL 6.25 MG TABLET PO (17:23)
[2021-05-05] MEDS: TAMSULOSIN HCL 0.4 MG CAPSULE PO (17:24)
[2021-05-05] MEDS: INSULIN GLARGINE (*BKC) 100 UNITS/ML 30 UNITS SUB-Q (17:25)
[2021-05-05] MEDS: traZODone HCL 50 MG TABLET PO (21:23)
[2021-05-05 21:32] LABS: Glucose Point of Care 363 mg/dl (65-105)
[2021-05-05 23:45] LABS: Glucose Point of Care 381 mg/dl (65-105)
[2021-05-06] VITALS (11 sets, daily range): BP systolic 115–149; BP diastolic 59–63; PULSE 51–66; RESP 16–161; TEMP 36–36.9; O2SAT 95–97
[2021-05-06] MEDS: INSULIN ASPART (*BKC) 100 UNITS/ML 10 UNITS SUB-Q (00:07)
[2021-05-06] MEDS: ALBUTEROL SULFATE (*SP) INHALER 2 PUFF INHALATION ×6 (04:30→21:33)
[2021-05-06 04:44] LABS: Glucose Point of Care 293 mg/dl (65-105)
[2021-05-06] MEDS: PREGABALIN (*CRX) 50 MG CAPSULE 100 MG PO ×3 (06:24→20:40)
[2021-05-06] MEDS: INSULIN ASPART (*BKC) 100 UNITS/ML 25 UNITS SUB-Q ×3 (08:02→17:20)
[2021-05-06] MEDS: INSULIN ASPART (*BKC) 100 UNITS/ML SUB-Q ×3 (08:02→17:20)
[2021-05-06] MEDS: INSULIN GLARGINE (*BKC) 100 UNITS/ML 50 UNITS SUB-Q (08:03)
[2021-05-06] MEDS: ROSUVASTATIN 10 MG TABLET 40 MG PO (08:05)
[2021-05-06] MEDS: ASPIRIN 81 MG ENTERIC TABLET PO (08:05)
[2021-05-06] MEDS: MONTELUKAST SODIUM 10 MG TABLET PO (08:05)
[2021-05-06] MEDS: PANTOPRAZOLE 40 MG TABLET PO (08:05)
[2021-05-06] MEDS: TAMSULOSIN HCL 0.4 MG CAPSULE PO ×2 (08:05→17:19)
[2021-05-06] MEDS: FLUoxetine HCL 20 MG CAPSULE PO (08:06)
[2021-05-06] MEDS: amLODIPine BESYLATE 5 MG TABLET PO (08:06)
[2021-05-06] MEDS: CLOPIDOGREL BISULFATE 75 MG TABLET PO (08:06)
[2021-05-06] MEDS: carvediloL 6.25 MG TABLET PO ×2 (08:06→17:19)
[2021-05-06] MEDS: FINASTERIDE 5 MG TABLET PO (08:06)
[2021-05-06] MEDS: FUROSEMIDE INJ 40 MG/4 ML VIAL IV PUSH (08:07)
[2021-05-06 08:10] LABS: Glucose Point of Care 308 mg/dl (65-105)
--- NOTE | 2021-05-06 09:37 | PM.IMPN ---
Progress Note: A&P Assessment and Plan (1) COVID: Code(s): U07.1 - COVID-19 Status: Acute Assessment and Plan: Chest x-ray reviewed 05/05/2021 interval history: patient with COVID-19 being treated with dexamethasone as patient is requiring 2 L of oxygen, unable to started remdesivir as patient creatinine is elevated with a GFR of 34, will continue to monitor patient remains clinically stable has no new complaint, states not a short of breath as when he arrived. Elevated blood sugar likely due to Decadron. (2) CHF (congestive heart failure): Qualifiers: Heart failure chronicity: acute on chronic Heart failure type: unspecified Qualified Code(s): I50.9 - Heart failure, unspecified Code(s): I50.9 - Heart failure, unspecified Status: Acute Assessment and Plan: BNP elevated at 1890 Chest x-ray with findings consistent with CHF exacerbation Gentle diuresis Monitor daily intake and output Continue diuresis with 40 mg IV b.i.d. Not on Lasix at home Was switched to oral Lasix today 40 mg daily no edema noted clinically improved as well Recent echocardiogram showed ejection fraction 60% 11/2020 (3) Chronic kidney disease, stage 3: Qualifiers: Chronic kidney disease stage 3 subtype: stage 3a (GFR 45-59) Qualified Code(s): N18.31 - Chronic kidney disease, stage 3a Code(s): N18.3 - Chronic kidney disease, stage 3 (moderate) Status: Acute Assessment and Plan: BUN and creatinine at patient's baseline which is mid 2s Continue to monitor Daily BMP (4) DM2 (diabetes mellitus, type 2): Qualifiers: Diabetes mellitus termite exterminator insulin use: with halfway use Diabetes mellitus complication status: with other specified complication Qualified Code(s): E11.69 - Type 2 diabetes mellitus with other specified complication; Z79.4 - jail (current) use of insulin Code(s): E11.9 - Type 2 diabetes mellitus without complications Status: Chronic Assessment and Plan: Heart healthy calorie consistent 1800 calorie diet Accu-Cheks AC and HS Severely hyperglycemic due to Decadron On Lantus 50 units b.i.d. Uses Levemir 80 units b.i.d. with aspart 25 units t.i.d. with meals Increase Lantus to 65 units b.i.d. and follow Accu-Cheks continue aspart as ordered 25 units t.i.d. 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: Code(s): E11.39 - Type 2 diabetes mellitus with other diabetic ophthalmic complication; H54.8 - Legal blindness, as defined in [place] Status: Acute Assessment and Plan: For precautions (6) Gastroesophageal reflux disease: Qualifiers: Esophagitis presence: esophagitis presence not specified Qualified Code(s): K21.9 - Gastro-esophageal reflux disease without esophagitis Code(s): K21.9 - Gastro-esophageal reflux disease without esophagitis Status: Acute Assessment and Plan: PPI as needed (7) Peripheral neuropathy: Qualifiers: Peripheral neuropathy type: polyneuropathy associated with underlying disease Qualified Code(s): G63 - Polyneuropathy in diseases classified elsewhere Code(s): G62.9 - Polyneuropathy, unspecified Status: Acute Assessment and Plan: Continue Pregabalin. (8) COPD (chronic obstructive pulmonary disease): Code(s): J44.9 - Chronic obstructive pulmonary disease, unspecified Status: Acute Assessment and Plan: Breathing treatments q.4 hours Will start on dexamethasone (9) Thrombocytopenia: Code(s): D69.6 - Thrombocytopenia, unspecified Status: Acute Assessment and Plan: 103 K on admission will continue to monitor Subjective Date/time seen: 05/06/21 09:37 Interval history: This is a 65-year-old male with past medical history significant for type 2 diabetes mellitus, bilateral blindness, coronary artery disease, dyslipidemia, benign prostatic hyperplasia, congestive heart failure, COPD, chr
[2021-05-06 10:19] LABS: Basophils Percent Auto 0.1 % (0.2-1.2); Hematocrit 39.2 % (42.0-52.0); Hemoglobin 12.8 g/dL (14.0-18.0); Immature Granulocyte Absolute 0.02 K/mm3 (0.00-0.031); Immature Granulocyte Percent A 0.2 % (0-0.5); Lymphocytes Absolute Auto 0.68 K/mm3 (0.9-3.2); Lymphocytes Percent Auto 8.4 % (18.3-44.2); Mean Corpuscular HGB Conc 32.7 g/dl (32-36); Mean Corpuscular Hemoglobin 26.8 pg (26-34); Mean Platelet Volume 10.7 fl (7.4-10.4); Monocytes Absolute Auto 0.4 K/mm3 (0.1-0.6); Monocytes Percent Auto 4.7 % (2.6-8.5); Neutrophils Percent Auto 86.6 % (45.5-73.1); Platelet Count Result 134 k/mm3 (150-375); Red Blood Count 4.78 M/mm3 (4.6-6.20); Red Cell Distribution Width 16.1 % (11.5-14.5); White Blood Count 8.1 K/mm3 (4.5-10.0)
[2021-05-06 10:31] LABS: Alanine Aminotransferase 34 U/L (4-50); Albumin Level 4.1 g/dL (3.5-5.1); Alkaline Phosphatase 65 U/L (38-126); Anion Gap 12 mmol/L (8-16); Aspartate Amino Transferase 34 U/L (17-59); Bilirubin,Total 0.5 mg/dL (0.2-1.3); Blood Urea Nitrogen 46 mg/dL (9-20); Calcium 9.1 mg/dL (8.4-10.2); Carbon Dioxide 24 mmol/L (22-30); Chloride 96 mmol/L (98-107); Estimated CRCL calculation 28 ml/min; Estimated Glomerular Filt Rate 25; Glucose 421 mg/dL (65-110); Potassium 4.4 mmol/L (3.4-5.0); Sodium 132 mmol/L (137-145)
[2021-05-06 10:37] LABS: NT Pro B Type Natriuretic Pept 1710 pg/mL (5-100)
[2021-05-06 12:04] LABS: Glucose Point of Care 403 mg/dl (65-105)
[2021-05-06] MEDS: INSULIN GLARGINE (*BKC) 100 UNITS/ML 20 UNITS SUB-Q (12:35)
[2021-05-06 16:48] LABS: Glucose Point of Care 395 mg/dl (65-105)
[2021-05-06 20:37] LABS: Glucose Point of Care 327 mg/dl (65-105)
[2021-05-06] MEDS: INSULIN GLARGINE (*BKC) 100 UNITS/ML 65 UNITS SUB-Q (20:38)
[2021-05-06] MEDS: traZODone HCL 50 MG TABLET PO (20:41)
[2021-05-07] VITALS: BP 119/68; PULSE 63; RESP 18; TEMP 36.6; O2SAT 100
[2021-05-07 04:00] VITALS: BP 105/54; PULSE 63; RESP 18; TEMP 36.3; O2SAT 98
[2021-05-07] MEDS: PREGABALIN (*CRX) 50 MG CAPSULE 100 MG PO (05:30)
[2021-05-07 08:00] VITALS: BP 137/60; PULSE 58; PULSE 63; RESP 14; TEMP 36.2; O2SAT 98; O2SAT 99
[2021-05-07 08:07] LABS: Glucose Point of Care 190 mg/dl (65-105)
[2021-05-07 08:38] VITALS: O2SAT 98
[2021-05-07] MEDS: ALBUTEROL SULFATE (*SP) INHALER 2 PUFF INHALATION ×2 (08:39→11:51)
[2021-05-07] MEDS: MONTELUKAST SODIUM 10 MG TABLET PO (09:38)
[2021-05-07] MEDS: TAMSULOSIN HCL 0.4 MG CAPSULE PO (09:38)
[2021-05-07] MEDS: FINASTERIDE 5 MG TABLET PO (09:38)
[2021-05-07] MEDS: FLUoxetine HCL 20 MG CAPSULE PO (09:38)
[2021-05-07] MEDS: CLOPIDOGREL BISULFATE 75 MG TABLET PO (09:38)
[2021-05-07] MEDS: PANTOPRAZOLE 40 MG TABLET PO (09:38)
[2021-05-07] MEDS: FUROSEMIDE 40 MG TABLET PO (09:38)
[2021-05-07] MEDS: amLODIPine BESYLATE 5 MG TABLET PO (09:38)
[2021-05-07] MEDS: carvediloL 6.25 MG TABLET PO (09:38)
[2021-05-07] MEDS: ASPIRIN 81 MG ENTERIC TABLET PO (09:38)
[2021-05-07] MEDS: INSULIN ASPART (*BKC) 100 UNITS/ML 25 UNITS SUB-Q ×2 (09:39→13:10)
[2021-05-07] MEDS: ROSUVASTATIN 10 MG TABLET 40 MG PO (09:39)
[2021-05-07] MEDS: INSULIN GLARGINE (*BKC) 100 UNITS/ML 65 UNITS SUB-Q (09:42)
[2021-05-07 11:51] LABS: Glucose Point of Care 232 mg/dl (65-105)
[2021-05-07 12:00] VITALS: BP 134/60; PULSE 60; RESP 14; TEMP 36.2; O2SAT 98
--- NOTE | 2021-05-07 12:35 | PM.DS ---
DS: Admitting Diagnosis Discharge Date 05/07/2021 Admitting Diagnosis Shortness of breath DS: Discharge Diagnosis Discharge Diagnosis (1) COVID: Code(s): U07.1 - COVID-19 Status: Acute Assessment and Plan: Chest x-ray reviewed on admission which is attached here. Patient with COVID-19 on admission. Initial chest x-ray with congestive changes as noted above. He was started on dexamethasone. Unable to start remdesivir as his creatinine was elevated with GFR of 34. He clinically improved with initiation of dexamethasone however it he had concurrent severe hyperglycemia. With discussion it was decided was. Decadron at discharge. He initially required couple of L of oxygen via nasal cannula on admission which was tapered of during the hospital course and was on room air by the time of discharge. For his congestive changes he was started on IV Lasix and repeat chest x-ray showed resolution of those congestive changes. He was switched to oral Lasix for further continuation at discharge. (2) CHF (congestive heart failure): Qualifiers: Heart failure chronicity: acute on chronic Heart failure type: unspecified Qualified Code(s): I50.9 - Heart failure, unspecified Code(s): I50.9 - Heart failure, unspecified Status: Acute Assessment and Plan: BNP elevated at 1890 Chest x-ray with findings consistent with CHF exacerbation Gentle diuresis Monitor daily intake and output Continue diuresis with 40 mg IV b.i.d. Not on Lasix at home Was switched to oral Lasix today 40 mg daily no edema noted clinically improved as well Recent echocardiogram showed ejection fraction 60% 11/2020 Will discharge on Lasix 40 mg daily at home and follow-up with photography spotter and training and development professional as outpatient basis BMP in 1 week (3) Chronic kidney disease, stage 3: Qualifiers: Chronic kidney disease stage 3 subtype: stage 3a (GFR 45-59) Qualified Code(s): N18.31 - Chronic kidney disease, stage 3a Code(s): N18.3 - Chronic kidney disease, stage 3 (moderate) Status: Acute Assessment and Plan: BUN and creatinine at patient's baseline which is mid 2s Continue to monitor Daily BMP (4) DM2 (diabetes mellitus, type 2): Qualifiers: Diabetes mellitus intermediate project manager insulin use: with intermediate project manager use Diabetes mellitus complication status: with other specified complication Qualified Code(s): E11.69 - Type 2 diabetes mellitus with other specified complication; Z79.4 - terminal gauger (current) use of insulin Code(s): E11.9 - Type 2 diabetes mellitus without complications Status: Chronic Assessment and Plan: Heart healthy calorie consistent 1800 calorie diet Accu-Cheks AC and HS Severely hyperglycemic due to Decadron On Lantus 50 units b.i.d. Uses Levemir 80 units b.i.d. with aspart 25 units t.i.d. with meals Increase Lantus to 65 units b.i.d. and follow Accu-Cheks continue aspart as ordered 25 units t.i.d. 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: Code(s): E11.39 - Type 2 diabetes mellitus with other diabetic ophthalmic complication; H54.8 - Legal blindness, as defined in [place] Status: Acute Assessment and Plan: For precautions (6) Gastroesophageal reflux disease: Qualifiers: Esophagitis presence: esophagitis presence not specified Qualified Code(s): K21.9 - Gastro-esophageal reflux disease without esophagitis Code(s): K21.9 - Gastro-esophageal reflux disease without esophagitis Status: Acute Assessment and Plan: PPI as needed (7) Peripheral neuropathy: Qualifiers: Peripheral neuropathy type: polyneuropathy associated with underlying disease Qualified Code(s): G63 - Polyneuropathy in diseases classified elsewhere Code(s): G62.9 - Polyneuropathy, unspecified Status: Acute Assessment and Plan: Continue Pregabalin. (8) COPD (chronic obstructive pu
[2021-05-07] MEDS: INSULIN ASPART (*BKC) 100 UNITS/ML SUB-Q (13:10)
== END 2021-05-07 15:30 | disposition home or self-care (01) ==
LOC: ANHED 21:49 → ANH3MEDSUR 05-05 15:30
PROVIDERS: Admitting Provider Internal Medicine; Emergency Provider Emergency Medicine; PCP Family Medicine; Visit Provider Internal Medicine
DX: U07.1 COVID-19 (principal); R53.1 Weakness; I13.0 Hypertensive heart and chronic kidney disease with heart failure and stage 1 through stage 4 chronic kidney disease, or unspecified chronic kidney disease; N18.31 Chronic kidney disease, stage 3a; D69.6 Thrombocytopenia, unspecified; E11.22 Type 2 diabetes mellitus with diabetic chronic kidney disease; E11.65 Type 2 diabetes mellitus with hyperglycemia; E11.39 Type 2 diabetes mellitus with other diabetic ophthalmic complication; E11.42 Type 2 diabetes mellitus with diabetic polyneuropathy; E78.5 Hyperlipidemia, unspecified; H54.7 Unspecified visual loss; I50.9 Heart failure, unspecified; I25.10 Atherosclerotic heart disease of native coronary artery without angina pectoris; N40.0 Benign prostatic hyperplasia without lower urinary tract symptoms; J44.9 Chronic obstructive pulmonary disease, unspecified; K21.9 Gastro-esophageal reflux disease without esophagitis; Z95.5 Presence of coronary angioplasty implant and graft; Z79.4 Long term (current) use of insulin; Z79.84 Long term (current) use of oral hypoglycemic drugs; Z87.891 Personal history of nicotine dependence; Z79.82 Long term (current) use of aspirin; Z79.02 Long term (current) use of antithrombotics/antiplatelets
CPT/HCPCS: 36415; 71045; 71046; 80053; 82550; 82948; 83880; 84484; 85025; 85610; 85730; 93005; 94640; 96374; 96375; 96376; 97161; 97165; 99285; A9270; C9803; G0378; J1100; J1815; J1940; J2405; U0003; U0005

== ENCOUNTER 2021-10-14 03:23 | Observation (INO) | payer BC, SELFPAY ==
--- NOTE | ~2021-10-14 | MR_ITS ---
EXAMINATION: MR brain/brain stem wo con DATE: 10/14/2021 10:31 INDICATION: TIA/Stroke TECHNIQUE: Magnetic resonance imaging (MRI) of the brain and brainstem was performed without intraven ous contrast. Sequences included sagittal and axial T1-weighted SE, axial diffusion-weighted FS EPI A SSET, axial T2*-weighted GRE, axial T2-weighted FLAIR Propeller, and axial T2-weighted Propeller. Carley arent diffusion coefficient (ADC) maps were created. COMPARISON: CT brain 01/14/2015 FINDINGS: Small foci of restricted diffusion present within the yanely and left centrum semiovale. No MRI evidenc e of hemorrhage or extra-axial collection. Small foci of susceptibility, nonspecific but most likely reflective of prior microhemorrhages . Mild chronic white matter change. Mild generalized parenchymal volume loss. The ventricles are proportional to brain volume. Basilar cisterns are patent. Partially empty sella. Flow voids are preserved. Chronic changes in the globes. No abnormal paranasal sinus or mastoid signa l. IMPRESSION: 1. Focal acute infarcts in the yanely and left centrum semiovale. Results reported telephonically to Vannesa Werner RN by Dr. Waddell at 3:05 PM on 10/14/2021. Reviewed, dictated and finalized at location K.
--- NOTE | 2021-10-14 01:02 | ADMGEN ---
This patient, David Álvarez, was admitted to Medical Room 344-01. Patient/family oriented to hospital policies and general routines including ID bracelet, bed and alarms, visiting hours, pain management, procedures, bathroom and other care routines, personal items, smoking policy, room service/diet, and visiting hours. Information on how to activate the Rapid Response Team has been discussed. Patient/Family are encouraged to report perceived risks to care and to ask questions if they do not understand what they are told or what they should do.
[2021-10-14 01:05] VITALS: BP 149/79; PULSE 62; RESP 16; TEMP 36.1; O2SAT 98; BMI 28.0
[2021-10-14 01:17] LABS: Glucose Point of Care 240 mg/dl (65-105)
[2021-10-14 01:25] VITALS: BP 149/79; PULSE 62; RESP 16; TEMP 36.1; O2SAT 98; BMI 28.0
[2021-10-14 01:57] VITALS: BMI 27.7
[2021-10-14 02:24] VITALS: PULSE 62; RESP 16; O2SAT 98
--- NOTE | 2021-10-14 04:42 | PM.IMHP ---
H&P: HPI History of Present Illness Date/Time: 10/14/21 04:42 Chief Complaint: Right-sided weakness Narrative: This is a 65-year-old male with past medical history significant for blindness, type 2 diabetes mellitus, hypertension, peripheral neuropathy, dyslipidemia, chronic kidney disease, benign prostatic hyperplasia. Patient presents as a transfer from outside hospital due to right-sided weakness patient is blind and had been alone at home for the last 2 days was out of town and upon her arrival noticed the patient to be weak and unable to get up on his own with right-sided weakness. Patient denies any fevers, chills, headaches, no nausea, no vomiting, no abdominal pain, no diarrhea, no chest pain, no palpitations, no loss of consciousness, S states that motor deficit is now resolved and denies any paresthesias or sensory deficit. 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 Patient is being admitted for further evaluation, management and treatment. Review of Systems Review of Systems: Right-sided weakness, unable to get up. Constitutional: Constitutional: Denies chills, Denies fever(s), Denies malaise, Denies night sweats, Denies poor appetite and Reports weakness Eyes: Eyes: Reports other (blind) ENT: Denies dysphagia and Denies odynophagia Cardiovascular: Cardiovascular: Denies chest pain, Denies syncope, Denies irregular heart rhythm, Denies lightheadedness, Denies palpitations, Denies dyspnea on exertion and Denies paroxysmal nocturnal dyspnea Respiratory: Respiratory: Denies cough, Denies excessive phlegm production, Denies pain on inspiration and Denies dyspnea Gastrointestinal: Gastrointestinal: Denies abdominal pain, Denies dyspepsia, Denies diarrhea, Denies nausea and Denies vomiting Genitourinary: Genitourinary: Denies dysuria Musculoskeletal: Musculoskeletal: Denies arthralgias, Denies joint swelling and Reports muscle weakness Integumentary/Breasts: Skin/Breast: Denies erythema and Denies rash Neurologic: Reports weakness (Right-sided) Psychiatric: Psychiatric: Reports no additional psychiatric complaints and Reports as per HPI Endocrine: Endocrine: Denies cold intolerance, Denies fatigue, Denies flushing, Denies heat intolerance, Denies polyphagia, Denies polydipsia and Denies palpitations Hematologic/Lymphatic: Hematologic/Lymphatic: Reports no additional hematologic/lymphatic complaints and Reports as per HPI Allergic/Immunologic: Allergic/Immunologic: Reports no additional allergic/immunologic complaints and Reports as per HPI [facility] Past Medical History Medical History (Updated 10/14/21 @ 04:54 by Soham Olvera MD) Blind Both eyes BPH (benign prostatic hyperplasia) CAD (coronary artery disease) Cardiogenic shock Chronic kidney disease, stage 3 Chronic pain COPD (chronic obstructive pulmonary disease) DM2 (diabetes mellitus, type 2) Erectile dysfunction Heart attack (~09/2019) Herpes simplex Hyperlipidemia Hypertension Hypertriglyceridemia Low testosterone Peripheral neuropathy Trigger finger Surgical History Surgical History H/O hand surgery Left hand H/O skin graft of the right thigh as a child History of coronary artery stent placement Four cardiac stents [facility] via thoracotomy History of knee surgery Family History Family History Grandparent Diabetes mellitus Mother Tuberculosis Dementia Father Dementia Hx of CABG in his early 60s Social History Social History Social History: The patient has 2 biologic biological children and his has 1 adopted child Primary care physician: Dr. Martinez Code status: Full code Smoking status: Never smoker Smoking end date: 04/01/74 Alcohol intake: never Substance use: never Substanc
[2021-10-14 05:06] VITALS: BP 155/81; PULSE 69; RESP 16; TEMP 36.4; O2SAT 98
[2021-10-14 08:21] LABS: Glucose Point of Care 234 mg/dl (65-105)
[2021-10-14 09:02] LABS: Basophils Percent Auto 0.5 % (0.2-1.2); Eosinophils Absolute Auto 0.2 K/mm3 (0-0.3); Eosinophils Percent Auto 2.9 % (0-4.4); Hematocrit 37.9 % (42.0-52.0); Hemoglobin 12.3 g/dL (14.0-18.0); Immature Granulocyte Absolute 0.02 K/mm3 (0.00-0.031); Immature Granulocyte Percent A 0.3 % (0-0.5); Lymphocytes Absolute Auto 1.26 K/mm3 (0.9-3.2); Lymphocytes Percent Auto 19.5 % (18.3-44.2); Mean Corpuscular HGB Conc 32.5 g/dl (32-36); Mean Corpuscular Hemoglobin 27.3 pg (26-34); Mean Platelet Volume 11.1 fl (7.4-10.4); Monocytes Absolute Auto 0.5 K/mm3 (0.1-0.6); Monocytes Percent Auto 8.2 % (2.6-8.5); Neutrophils Absolute Auto 4.4 K/mm3 (1.3-6.7); Neutrophils Percent Auto 68.6 % (45.5-73.1); Platelet Count Result 136 k/mm3 (150-375); Red Blood Count 4.51 M/mm3 (4.6-6.20); Red Cell Distribution Width 13.2 % (11.5-14.5); White Blood Count 6.5 K/mm3 (4.5-10.0)
[2021-10-14 09:13] LABS: INR 1.1; Prothrombin Time 13.6 Seconds (11.1-14.7)
[2021-10-14 09:15] LABS: Partial Thromboplastin Time 30.7 SECONDS (22.3-36.8)
[2021-10-14 09:18] LABS: Anion Gap 7 mmol/L (8-16); Blood Urea Nitrogen 30 mg/dL (9-20); Calcium 8.6 mg/dL (8.4-10.2); Carbon Dioxide 25 mmol/L (22-30); Chloride 107 mmol/L (98-107); Estimated CRCL calculation 38 ml/min; Estimated Glomerular Filt Rate 36; Glucose 236 mg/dL (65-110); Magnesium 1.9 mg/dL (1.6-2.3); Phosphorus 3.5 mg/dL (2.5-4.5); Potassium 4.4 mmol/L (3.4-5.0); Sodium 139 mmol/L (137-145)
--- NOTE | 2021-10-14 09:50 | PM.IMPN ---
Progress Note: A&P Assessment and Plan (1) TIA (transient ischemic attack): Code(s): G45.9 - Transient cerebral ischemic attack, unspecified Status: Acute Assessment and Plan: Patient is motor deficit has resolved now Obtaining MRI Supportive care Neurology consult Patient is already on Plavix and statin at home (2) CAD (coronary artery disease): Code(s): I25.10 - Atherosclerotic heart disease of [place] coronary artery without angina pectoris Status: Acute Assessment and Plan: Chest pain-free Resume home meds Continue to monitor (3) COPD (chronic obstructive pulmonary disease): Code(s): J44.9 - Chronic obstructive pulmonary disease, unspecified Status: Acute Assessment and Plan: Not actively wheezing Continue home meds Continue to monitor (4) CHF (congestive heart failure): Qualifiers: Heart failure chronicity: acute on chronic Heart failure type: unspecified Qualified Code(s): I50.9 - Heart failure, unspecified Code(s): I50.9 - Heart failure, unspecified Status: Acute Assessment and Plan: Patient appears euvolemic Continue to monitor Daily intake and output (5) BPH (benign prostatic hyperplasia): Qualifiers: Lower urinary tract symptom presence: unspecified whether lower urinary tract symptoms present Qualified Code(s): N40.0 - Benign prostatic hyperplasia without lower urinary tract symptoms Code(s): N40.0 - Benign prostatic hyperplasia without lower urinary tract symptoms Status: Acute Assessment and Plan: Continue tamsulosin (6) Chronic kidney disease, stage 3: Qualifiers: Chronic kidney disease stage 3 subtype: stage 3a (GFR 45-59) Qualified Code(s): N18.31 - Chronic kidney disease, stage 3a Code(s): N18.3 - Chronic kidney disease, stage 3 (moderate) Status: Acute Assessment and Plan: BUN and creatinine at patient's baseline Continue to monitor (7) DM2 (diabetes mellitus, type 2): Qualifiers: Diabetes mellitus termite control service representative insulin use: with termite control service representative use Diabetes mellitus complication status: with other specified complication Qualified Code(s): E11.69 - Type 2 diabetes mellitus with other specified complication; Z79.4 - retirement (current) use of insulin Code(s): E11.9 - Type 2 diabetes mellitus without complications Status: Chronic Assessment and Plan: Carb consistent diet Accu-Cheks AC and HS Resume home meds (8) Blind: Code(s): H54.7 - Unspecified visual loss Status: Chronic Assessment and Plan: Ambulate with assistance Fall precautions Needs assistance with ADLs Subjective Date/time seen: 10/14/21 09:50 Interval history: Patient is alert and oriented x4. He does not appear to have any neuro deficits at this time. He does not appear to have any loss of strength bilateral upper extremities and bilateral lower extremities. Is blind baseline. He denies any nausea, vomiting upset stomach or diarrhea. He denies any dizziness or lightheadedness. He will work with physical therapy and occupational therapy today. Neurology will see the patient and MRI is currently ordered. Patient is agreeable to obtaining the MRI. However the patient did report p.r.n. able to do an MRI or further workup today he will sign out AMA before 5:00 p.m.. Review of Systems Review of Systems: All systems reviewed & are unremarkable except as noted in HPI and below Exam Narrative: General: No acute distress. Pleasant Mental Status: Awake, alert and oriented to person, place, and time with clear speech. Skin: Skin in warm, dry and intact without rashes or lesions. Head: Normocephalic and atraumatic. Eyes: Conjunctivae are clear without exudates or hemorrhage. Blind Ears: The external ear and canal are non-tender and without swelling or discharge. Nose: Nasal mucosa is pink and moist. Septum midline. Nares patent bila
[2021-10-14] MEDS: INSULIN ASPART (*BKC) 100 UNITS/ML SUB-Q ×2 (11:02→13:00)
[2021-10-14 11:04] VITALS: PULSE 69
[2021-10-14] MEDS: carvediloL 6.25 MG TABLET PO (11:04)
[2021-10-14] MEDS: CLOPIDOGREL BISULFATE 75 MG TABLET PO (11:05)
[2021-10-14] MEDS: PANTOPRAZOLE 40 MG TABLET PO (11:05)
[2021-10-14] MEDS: ROSUVASTATIN 10 MG TABLET 40 MG PO (11:05)
[2021-10-14] MEDS: ASPIRIN 81 MG ENTERIC TABLET PO (11:06)
[2021-10-14] MEDS: FINASTERIDE 5 MG TABLET PO (11:06)
[2021-10-14] MEDS: TAMSULOSIN HCL 0.4 MG CAPSULE PO (11:07)
[2021-10-14] MEDS: MONTELUKAST SODIUM 10 MG TABLET PO (11:07)
[2021-10-14] MEDS: PREGABALIN (*CRX) 50 MG CAPSULE 100 MG PO ×2 (11:13→14:07)
[2021-10-14 11:53] LABS: Glucose Point of Care 351 mg/dl (65-105)
--- NOTE | 2021-10-14 13:55 | WPDNEURCNPN ---
Assessment and Plan Assessment and plan (1) TIA (transient ischemic attack): Code(s): G45.9 - Transient cerebral ischemic attack, unspecified Status: Acute (2) Diabetic neuropathy: Code(s): E11.40 - Type 2 diabetes mellitus with diabetic neuropathy, unspecified Status: Acute (3) Ulnar neuropathy of both upper extremities: Code(s): G56.23 - Lesion of ulnar nerve, bilateral upper limbs Status: Acute Plan 1 TIA 2 legal blindness 3 diabetic neuropathy 4 bilateral severe ulnar neuropathy with wasting of 1st dorsal interosseous muscle rule out the possibility of cervical myelopathy. Patient is ready go out of the hospital MRI of the cervical spine could be done later in addition to EMG and nerve conduction study but MRI of the brain report has to be obtained before he leaves Consult date: 10/14/21 Time Seen: 13:55 HPI: David Álvarez is a 65 year [facility] for the complaints of right-sided weakness in addition to the history of being blind. His was out of town and upon her arrival she noted the patient to be weak and unable to get up on his own with right-sided weakness he gave no history of associated fever headaches nausea or vomiting or any other generalized symptomatology he had a CT angio of the brain which documented the old chronic infarct and was admitted to the hospital for further evaluation, his past history is consistent with coronary artery disease in addition to history of cardiogenic shock, chronic renal disease stage III, COPD, type 2 diabetes mellitus, history of herpes simplex hyperlipidemia hypertension and ongoing peripheral neuropathy in addition to the trigger finger. He has undergone left hand trigger-point surgery he has had coronary artery stent placement at [facility] via thoracotomy he has had knee surgery as well, he is never a smoker never a drinker he lives with his and children and disabled due to complication of diabetes, medications particularly included aspirin 81 mg daily carvedilol 6.25 mg b.i.d. clopidogrel 75 mg daily rosuvastatin 40 mg daily pregabalin 100 mg 3 times a day fluoxetine 30 mg daily trazodone 50 mg HS and insulin. Initial evaluation vital signs were normal with blood pressure 149/79 the general physical examination was normal he was able to move all extremities motor strength was 5/5 and he was admitted to the hospital for the diagnosis of TIA Review of Systems Review of Systems: All systems reviewed & are unremarkable except as noted in HPI and below PMFSH Past Medical History Medical History (Updated 10/14/21 @ 14:07 by Kev Campa MD) Blind Both eyes BPH (benign prostatic hyperplasia) CAD (coronary artery disease) Cardiogenic shock Chronic kidney disease, stage 3 Chronic pain COPD (chronic obstructive pulmonary disease) DM2 (diabetes mellitus, type 2) Erectile dysfunction Heart attack (~09/2019) Herpes simplex Hyperlipidemia Hypertension Hypertriglyceridemia Low testosterone Peripheral neuropathy Trigger finger Surgical History Surgical History H/O hand surgery Left hand H/O skin graft of the right thigh as a child History of coronary artery stent placement Four cardiac stents [facility] via thoracotomy History of knee surgery Family History Family History Grandparent Diabetes mellitus Mother Tuberculosis Dementia Father Dementia Hx of CABG in his early 60s Social History Social History Social History: The patient has 2 biologic biological children and his has 1 adopted child Primary care physician: Dr. Martinez Code status: Full code Smoking status: Never smoker Smoking end date: 04/01/74 Alcohol intake: never Substance use: never Substance
[2021-10-14] MEDS: FLUoxetine HCL 10 MG CAPSULE 30 MG PO (14:06)
--- NOTE | 2021-10-14 15:00 | PC.NURSE ---
Pt refused to await MRI results as he stated he is tired of hospitals. Pt educated that it would be in his best interest to stay and receive the results and treatment care plan. Pt continued to refuse and left facility with .
== END 2021-10-14 15:00 | disposition left against medical advice (07) ==
LOC: ANH3MED 10-18 09:16
PROVIDERS: Admitting Provider Internal Medicine; PCP Family Medicine; Visit Provider Internal Medicine
DX: G45.9 Transient cerebral ischemic attack, unspecified (principal); R53.1 Weakness; G56.23 Lesion of ulnar nerve, bilateral upper limbs; I13.0 Hypertensive heart and chronic kidney disease with heart failure and stage 1 through stage 4 chronic kidney disease, or unspecified chronic kidney disease; I50.9 Heart failure, unspecified; E11.22 Type 2 diabetes mellitus with diabetic chronic kidney disease; N18.30 Chronic kidney disease, stage 3 unspecified; E11.42 Type 2 diabetes mellitus with diabetic polyneuropathy; E78.5 Hyperlipidemia, unspecified; N40.0 Benign prostatic hyperplasia without lower urinary tract symptoms; H54.7 Unspecified visual loss; I25.10 Atherosclerotic heart disease of native coronary artery without angina pectoris; J44.9 Chronic obstructive pulmonary disease, unspecified; I25.2 Old myocardial infarction; B00.9 Herpesviral infection, unspecified; E78.1 Pure hyperglyceridemia; G89.29 Other chronic pain; Z95.5 Presence of coronary angioplasty implant and graft; Z79.82 Long term (current) use of aspirin; Z79.02 Long term (current) use of antithrombotics/antiplatelets; Z79.4 Long term (current) use of insulin; Z53.29 Procedure and treatment not carried out because of patient's decision for other reasons
CPT/HCPCS: 36415; 70551; 80048; 82948; 83735; 84100; 85025; 85610; 85730; A9270; G0378; G0379; J1815

== ENCOUNTER → 2021-12-01 14:05 | Outpatient (CLI) | payer BC, SELFPAY ==
--- NOTE | ~2021-12-01 | US_ITS ---
EXAMINATION: US carotid duplex BI DATE: 12/01/2021 14:35 INDICATION: Transient cerebral ischemic attack. Cerebral atherosclerosis. TECHNIQUE: Grayscale, color Doppler, and pulsed Doppler images of the cervical carotid arteries were obtained. The degree of vessel stenosis is placed in one of the following categories: normal, <50%, 5 0-69%, >=70% but less than near-occlusion, near-occlusion, or total occlusion. Note that percent sten osis relative to normal distal artery lumen diameter is indirectly measured from velocity measurement s as described by Josh, et al. Radiology 2003; 229:340-346. COMPARISON: None. FINDINGS: RIGHT: The right common carotid artery (CCA) peak systolic velocity (PSV) is 93 cm/s. The right internal car otid artery (ICA) PSV is 64 cm/s. The right ICA end-diastolic velocity (EDV) is 14 cm/s. The right IC A/CCA PSV ratio is 0.6. Grayscale and color Doppler images yield an estimate of <50% diameter reducti on from plaque in the ICA. The external carotid artery (ECA) PSV is 87 cm/s. There is antegrade flow in the right vertebral artery. LEFT: The left CCA PSV is 98 cm/s. The left ICA PSV is 84 cm/s. The left ICA EDV is 11 cm/s. The left ICA/C CA PSV ratio is 0.9. Grayscale and color Doppler images yield an estimate of <50% diameter reduction from plaque in the ICA. The ECA PSV is 100 cm/s. There is antegrade flow in the left vertebral artery . IMPRESSION: 1. <50% stenosis in the right internal carotid artery. 2. <50% stenosis in the left internal carotid artery. Reviewed, dictated and finalized at location A.
== END ==
PROVIDERS: PCP Physician Assistant; Visit Provider Physician Assistant
DX: G45.9 Transient cerebral ischemic attack, unspecified (principal); I65.23 Occlusion and stenosis of bilateral carotid arteries
CPT/HCPCS: 93880

== ENCOUNTER 2022-07-30 00:57 | Day surgery (SDC) | payer OTHER, SELFPAY ==
[2022-07-27 12:32] VITALS: BMI 29.2
[2022-07-30] VITALS (7 sets, daily range): BP systolic 145–162; BP diastolic 63–87; PULSE 56–63; RESP 11–19; TEMP 36.6; O2SAT 97–99; BMI 29.0
--- NOTE | 2022-07-30 10:29 | WPDHPUPDATE1 ---
History and Physical Update Update Date/Time: 07/30/22 10:29 History and Physical has been reviewed, including an updated exam of the patient. There are NO changes in the patient's condition. Risks, benefits, and alternatives have been discussed and questions answered. Patient agrees to proceed with procedure.
--- NOTE | 2022-07-30 10:30 | PM.OP ---
Procedure Note - Brief Procedure Note - Brief Date of procedure: 07/30/22 cva Procedure performed: Loop recorder implantation Surgeon: Stef Choudhruy MD Description of procedure: Brief History of Present Illness: Patient is a 66-year-old male with a history ischemic cardiomyopathy, CAD status post myocardial infarction with multiple stents, hypertension, type 2 diabetes mellitus with evidence of stroke without clear etiology referred for port implantation for further evaluation to assess for atrial fibrillation in her atrial flutter as yet diagnosed. After verbal and written informed consent was obtained from the patient risks, benefits, and alternatives explained in detail the patient agreed to proceed with the plan of care as outlined above. Patient was evaluated at bedside in the [facility] procedure room. Patient was placed the appropriate supine position. Left anterior chest wall was prepped and draped in the usual sterile fashion. Operators in appropriate sterile garb. The left 4th intercostal space was identified and marked. Utilizing approximately 19 cc of 1% subcutaneous lidocaine the left anterior chest wall was then locally anesthetized. After local anesthesia was achieved, 2 fingerbreadths left of the sternum at the 4th intercostal space was again identified and a 1 cm incision was made with the included skin punch tool. Following this with the included introducer, a tract was made subcutaneously at a 45 degree angle from the sternum. The introducer was then inverted 180 degrees and with the included plunger the Medtronic REVEAL LINQ II loop recorder was advanced subcutaneously into position easily and without complication. The plunger was then removed followed by the introducer. Manual pressure was held for least 5-10 min with excellent hemostasis. The device was then interrogated and revealed excellent fidelity and measured at 0.8-0.9 mV. The Medtronic REVEAL LINQ II SN [id number] was implanted without complication. The incision was then approximated and closed using Exofin skin adhesive. The incision was then covered with a sterile dressing. Complications: None CONCLUSIONS: Successful implantation of Medtronic Reveal LINQ II loop recorder. Implants: Medtronic loop recorder implantation Pathology: None sent Complications: No immediate complications Condition: Stable Disposition: Same day
== END 2022-07-30 11:40 | disposition home or self-care (01) ==
PROVIDERS: PCP Family Medicine; Visit Provider Internal Medicine Cardiovascular Disease
PROC: (CPT 33285; principal; 2022-07-30 10:00)
DX: I63.9 Cerebral infarction, unspecified (principal); I25.10 Atherosclerotic heart disease of native coronary artery without angina pectoris; I13.0 Hypertensive heart and chronic kidney disease with heart failure and stage 1 through stage 4 chronic kidney disease, or unspecified chronic kidney disease; E11.22 Type 2 diabetes mellitus with diabetic chronic kidney disease; N18.30 Chronic kidney disease, stage 3 unspecified; I50.9 Heart failure, unspecified; I25.2 Old myocardial infarction; Z95.5 Presence of coronary angioplasty implant and graft; E78.2 Mixed hyperlipidemia; E11.51 Type 2 diabetes mellitus with diabetic peripheral angiopathy without gangrene
CPT/HCPCS: 33285; C1764

== ENCOUNTER → 2022-09-24 11:13 | Outpatient (CLI) | payer OTHER, SELFPAY ==
--- NOTE | ~2022-09-24 | XR_ITS ---
EXAMINATION: XR lumbar spine min 4V DATE: 09/24/2022 11:56 INDICATION: Low back pain TECHNIQUE: Anteroposterior, lateral, and bilateral oblique views of the lumbar spine, and cone-down l ateral view of the lumbosacral junction were obtained. COMPARISON: 05/03/2014 FINDINGS: Bone alignment is normal. There is no fracture. There is chronic mild to moderate loss of i ntervertebral disc space height at L4-5 and L5-S1. The vertebral body heights are maintained. There i s multilevel mild facet joint osteoarthritis. Calcified atherosclerosis is noted. IMPRESSION: 1. Mild to moderate lumbar spondylosis without acute findings or significant interval change. Reviewed, dictated and finalized at location [] IMPRESSION: 1. Mild to moderate lumbar spondylosis without acute findings or significant in terval change.
== END ==
PROVIDERS: PCP Physician Assistant; Visit Provider Physician Assistant
DX: M47.816 Spondylosis without myelopathy or radiculopathy, lumbar region (principal)
CPT/HCPCS: 72110

== ENCOUNTER 2025-01-14 12:55 | Inpatient (IN) | payer OTHER, BC, MEDICAID, SELFPAY ==
[2025-01-14] VITALS (16 sets, daily range): BP systolic 145–192; BP diastolic 51–110; PULSE 51–74; RESP 13–20; TEMP 36.9; O2SAT 96–100
--- NOTE | ~2025-01-14 | MR_ITS ---
EXAMINATION: MR brain/brain stem wo/w con DATE: 01/16/2025 14:28 INDICATION: Left-sided weakness. TECHNIQUE: Magnetic resonance imaging (MRI) of the brain and brainstem was performed without and with 19 mL MultiHance intravenous contrast. COMPARISON: Brain MRI 10/14/2021, head CT 01/14/2025 FINDINGS: There is an acute infarct in the posterior limb right internal capsule. There are old infarcts in the yanely, right thalamus, right basal ganglia, and right cerebellum. There are small areas of cystic encephalomalacia in the left frontal and parietal deep white matter. There are scattered areas of nonspecific increased T2-weighted signal intensity in the cerebral and cerebellar white matter and brainstem. There is an old infarct in left occipital lobe. There is no intracranial hemorrhage or abnormal mass lesion. The ventricles are normal in size. 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 The mastoid air cells are normal. There is mild mucosal thickening in the paranasal sinuses. IMPRESSION: 1. Acute infarct involving posterior limb right internal capsule. 2. Old infarcts in the yanely, right thalamus, right basal ganglia, right cerebellum, left frontal and parietal lobes, and left occipital lobe. 3. Moderate nonspecific cerebral and cerebellar white matter disease and brainstem disease, which likely represents chronic small vessel ischemic disease. Reviewed, dictated and finalized at location E. IMPRESSION: 1. Acute infarct involving posterior limb right internal capsule. 2. Old infarcts in the yanely, right thalamus, right basal ganglia, right cerebel lum, left frontal and parietal lobes, and left occipital lobe. 3. Moderate nonspecific cerebral and cerebellar white matter disease and brains tem disease, which likely represents chronic small vessel ischemic disease.
--- NOTE | ~2025-01-14 | CT_ITS ---
EXAMINATION: CT brain wo steffi, 01/14/2025 15:05 CDT HISTORY: left leg weakness COMPARISON: No comparisons available. Technique: Axial images obtained of the brain without contrast. One or more of the following dose reduction techniques were used: automated exposure control, adjustment of the mA and/or kV according to patient size, use of iterative reconstruction technique. Findings: Remote right basal ganglia lacunar infarct. Remote left basal ganglia lacunar infarct. Mild probable chronic periventricular ischemic changes. No acute infarct or hemorrhage. No midline shift or mass effect. No extra-axial fluid collections. Mastoid air cells unremarkable. Probable sequelae of remote trauma involving the optic globes bilaterally, correlate clinically. No acute fracture. No significant facial or scalp soft tissue swelling evident. No radiopaque foreign body is seen. Impression: 1.No acute intracranial abnormality. Reviewed, dictated and finalized at location P. Impression: 1.No acute intracranial abnormality.
--- NOTE | ~2025-01-14 | US_ITS ---
EXAMINATION: US thyroid DATE: 01/15/2025 07:57 INDICATION: Thyroid nodules. TECHNIQUE: Multiple ultrasound images of the thyroid were obtained. COMPARISON: None. FINDINGS: The right thyroid lobe measures 4.8 x 1.7 x 2.0 cm. The left thyroid lobe measures 4.5 x 2.2 x 2.0 cm. In the left thyroid lobe, there is a 2.2 cm solid, hypoechoic, wider than tall nodule with smooth margin without echogenic foci (TI-RADS TR4). IMPRESSION: 1. Left thyroid nodule. Ultrasound-guided fine-needle aspiration is recommended. Reviewed, dictated and finalized at location E. IMPRESSION: 1. Left thyroid nodule. Ultrasound-guided fine-needle aspiration is recommended .
--- NOTE | ~2025-01-14 | CT_ITS ---
REFERENCE: [None available.] TECHNIQUE: Axial mm images of the head and neck were obtained without and with infusion of 100 cc of Isovue 350 of intravenous contrast. Postcontrast 1.25 mm axial images were then obtained. On an independent workstation, 0.625 mm axial images were utilized to render MIP and MPR images of the intracranial circulation. CTA NECK: The aortic arch demonstrates normal caliber and patency. Normal branching pattern is noted of the supraaortic vessels. The origins of the supraaortic vessels are widely patent.. The common carotid and cervical segments of the ICA and ECA demonstrate normal caliber and patency. The vertebral arteries are symmetric in size, demonstrating normal patency. CTA HEAD: Basilar calcification within the intracranial ICA bilaterally without significant stenosis. The intracranial ICA, SAKINA, and MCA demonstrate normal caliber and patency. No hemodynamically significant stenosis or aneurysm is identified. The distal vertebral, basilar, and bilateral posterior cerebral arteries demonstrate normal caliber and patency. The superior cerebellar arteries are also widely patent. NONVASCULAR FINDINGS: Left thyroid lobe nodule measures up to 2 x 1.3 cm. Follow-up ultrasound is recommended. The soft tissue of the neck is unremarkable. No mass or pathologic enhancement is noted. There is no pathologically enlarged lymphadenopathy. The airway is patent. No acute intracranial hemorrhage, mass, or extraaxial fluid collections are noted. Ventricular size is normal. The skull is intact. The visualized mastoid air cells and sinuses are clear. There is no pathologic enhancement. IMPRESSION: No hemodynamically significant stenosis is noted of the cervical and intracranial arterial vasculature. Multiple left thyroid lobe nodules measuring up to 2 cm. Follow-up ultrasound is recommended. Reviewed, dictated and finalized at location S. IMPRESSION: No hemodynamically significant stenosis is noted of the cervical and intracrani al arterial vasculature. Multiple left thyroid lobe nodules measuring up to 2 cm. Follow-up ultrasound i s recommended.
--- NOTE | ~2025-01-14 | XR_ITS ---
EXAMINATION: XR chest 1V, 01/14/2025 15:10 CDT HISTORY: weakness COMPARISON: No comparisons available. Technique: Single view. Findings: The lungs are clear, no effusion. No pneumothorax. Mild cardiomegaly. Mediastinal and hilar contours are within normal limits. Bony thorax no acute abnormality. Impression: No acute cardiopulmonary abnormality. Reviewed, dictated and finalized at location P. Impression: No acute cardiopulmonary abnormality.
--- OUTSIDE RECORDS SUMMARY | 2025-01-14 14:39 | XMS_ITS | Clinical Summary ---
Author Organization [facility] Address [facility] [place] [address] Care Team Providers Care Kitchen Operator Name Role Phone Aggie Martinez MD Primary Care Provider [phone] Allergies No known active allergies Medications ketoconazole (NIZORAL) 2 % cream Apply topically daily. 30 g 2 3 Active mupirocin (BACTROBAN) 2 % ointment Apply topically daily. 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 Gender Identity Not on file Sexual Orientation Not on file Last Filed Vital Signs Vital Sign Reading Time Taken Comments Blood Pressure 195/84 10/14/2021 12:15 AM CDT Pulse 59 10/14/2021 12:15 AM CDT Temperature 36.6 C (97.8 F) 10/13/2021 11:42 PM CDT Respiratory Rate 16 10/14/2021 12:15 AM CDT Oxygen Saturation 97% 10/14/2021 12:15 AM CDT Inhaled Oxygen Concentration - - Weight 90.7 kg (200 lb) 10/13/2021 6:33 PM CDT Height 182.9 cm (6') 10/13/2021 6:33 PM CDT Body Mass Index 27.12 10/13/2021 6:33 PM CDT Plan of Treatment Health Maintenance Due Date Last Done Comments Colorectal Cancer Screening Colonoscopy (10 Years) 1954 Hepatitis C 1972 DTaP, Tdap and Td Vaccines ( 1 - Tdap) 1973 Pneumococcal Vaccine: 50+ Ye ars (1 of 1 - PCV) 2004 Zoster Vaccines (1 of 2) 2004 Annual Medicare Wellness Visit 11/12/2019 COVID-19 Vaccine (2 - 2024-2 6 season) 2024 12/16/2020 Influenza Adult (#1) 2024 RSV Immunization or 60+ Years (1 - 1-dose 75+ series) 2029 Hepatitis A Vaccines Aged Out No long er eligible based on patient's age to complete this topic Meningococcal B Vaccine Aged Out No l onger eligible based on patient's age to complete this topic Meningococcal Vaccine Aged Out No divya susanne eligible based on patient's age to complete this topic RSV Immunizations Under 20 Months Aged Out No longer eligible based on patient's age to complete this topic Insurance [facility] MEDICAID Care Teams Kitchen Operator Relationship Specialty Start Date End Date Aggie Martinez MD [address] [place] [address] PCP - General FAMILY PRACTICE 03/09/21
--- OUTSIDE RECORDS SUMMARY | 2025-01-14 14:39 | XMS_ITS | Clinical Summary ---
Author Organization [facility] Facility Address [address] [place] [id number] Care Team Providers Care Overnight Houseperson Name Role Phone Unavailable Primary Care Provider Unavailabl e Allergies Active Allergy Reactions Criticality Noted Date Comments Fluorescein Other (see comments) 01/14/2015 Medications * This document contains information received from the source organization and may not represent a complete record from that organization. aspirin (ST RUDDY) 81 MG EC tablet Take 1 tablet by mouth 1 (one) time each day Active carvedilol (COREG) 3.125 MG tablet Take 3.125 mg by mouth in the morning and 3.125 mg in the evening. 0 Active Cholecalciferol 50 MCG (1999) capsule Take 1 capsule by mouth 1 (one) time each day Active clopidogrel (PLAVIX) 75 MG tablet Take 1 tablet by mouth 1 (one) time each day 0 Active finasteride (PROSCAR) 5 MG tablet Take 5 mg by mouth 1 (one) time each day 1 Active FLUoxetine (PROzac) 40 MG capsule Take 40 mg by mouth 1 (one) time each day Active insulin aspart (NovoLOG FLEXPEN) 100 UNIT/ML injection as needed Comments: Patient Notes: SLIDING SCALE PRN Duration: 90 Active montelukast (SINGULAIR) 10 MG tablet Take 1 tablet by mouth 1 (one) time each day 8 Active pregabalin (LYRICA) 100 MG capsule Take 1 capsule by mouth 3 (three) times a day 9 Active rosuvastatin (CRESTOR) 40 MG tablet Take 1 tablet by mouth 1 (one) time each day Active omeprazole-sodiu m bicarbonate (ZEGERID) 40-1100 MG per capsule Take 1 capsule by mouth 1 (one) time each day before breakfast Do not open capsule. Active sacubitril-valsa rtan (Entresto) 24-26 MG per tablet Take 1 tablet by mouth 2 (two) times a day Active traZODone (DESYREL) 50 MG tablet Take 50 mg by mouth every night Active insulin glargine (LANTUS) 100 UNIT/ML injection Inject 40 Units under the skin in the morning and 40 Units in the evening. Active Farxiga 5 MG tablet TAKE 1 TABLET BY MOUTH EVERY MORNING 30 tablet 11 Active Active Problems Problem Noted Date Diagnosed Date Benign prostatic hyperplasia 03/21/2021 Bilateral acquired blindness of eyes 09/20/2020 Chronic kidney disease stage 4 09/20/2020 Coronary arteriosclerosis 09/20/2020 Hyperlipidemia 09/20/2020 Essential hypertension 09/20/2020 Retinopathy due to type 2 diabetes mellitus 08/31 Systolic heart failure 09/20/2020 Vitamin D deficiency 09/20/2020 History of cardiomyopathy 04/06/2020 History of placement of stent for coronary arter y disease 04/06/2020 Type 2 diabetes mellitus 10/29/2019 Ischemic cardiomyopathy 10/27/2019 Encounters Date Type Department Care Team Description 12/08/2024 10:45 AM CDT [facility] [address] [facility] [address] [place] [address] Iban Rosas MD Chronic kidney disease stage 4 (HCC) (Primary Dx); Essential hypertension; Type 2 diabetes mellitus, not otherwise specified (HCC); Coronary arteriosclerosis, not otherwise specified; Mixed hyperlipidemia; History of cardiomyopathy; Systolic heart failure, not otherwise specified (HCC); Vitamin D deficiency, not otherwise specified; Benign prostatic hyperplasia 12/03/2024 Orders Only [facility] [address] [place] [id number] Iban Rosas MD 11/26/2024 Refill [facility] [address] [facility] [address] [place] [address] Iban Rosas MD from Last 3 Months Family History Medical History Relation Comments Dementia Father Heart disease Father Cancer Mother Dementia Mother Relation Status Comments Father Mother Social History Tobacco Use Types Packs/Day Years Used Date Smoking Tobacco: Never Smokeless Tobacco: Never Tobacco Cessation:Counseling Given: Not Answered Alcohol Use Standard Drinks/Week Comments Not Currently 0 (1 standard drink = 0.6 oz pure alcohol) Alcoholic Drinks/day: Occasional social drink Sex and Gender Information Value Date Recorded Sex Assigned at Not on file Legal Sex Male 2:52 PM EDT Gender Identity Not on file Sexual Orientation Not on file Last Filed Vital Signs Vital Sign Reading Time Taken Comments Blood Pressure 122/70 12/08/2024 10:51 AM CDT Pulse 54 12/08/2024 10:51 AM CDT Temperature 36.5 C (97.7 F) 12/08/2024 10:51 AM CDT Respiratory Rate 18 12/08/2024 10:51 AM CDT Oxygen Saturation 96% 12/08/2024 10:51 AM CDT Inhaled Oxygen Concentration - - Weight 94.3 kg (208 lb) 12/08/2024 10:51 AM CDT Height 182.9 cm (6') 12/17/2023 12:02 PM CDT Body Mass Index 28.21 12/17/2023 12:02 PM CDT Plan of Treatment Upcoming Encounters Date Type Department Care Team (Late st Contact Info) Description 04/13/2025 10:30 AM CARPENTER/LABOR Office Visit [facility], [facility] [address] [facility] [address] [place] [address] Iban Rosas MD [address] [place] [phone] Health Maintenance Due Date Last Done Comments Pneumococcal Vaccine: 50+ Years (1 of 2 - PCV) 1973 Colorectal Cancer Screening: Annual FOBT 11/12/2003 Colorectal Cancer Screening: Colonoscopy 11/12/2003 Colorectal Cancer Screening: Sigmoidoscopy 11/12/2003 Diabetes: Ophthalmology Exam 08/25/2020 Diabetes: Pedal Pulse Checked 08/25/2020 Diabetes: Sensory Foot Exam 08/25/2020 Diabetes: Visual Foot Exam 08/25/2020 Influenza Vaccine (#1) 2024 Diabetes: Hemoglobin A1C 03/04/20252 025, 07/30/2024, 04/03/2024, Additional history exists Hepatitis B Vaccine Aged Out No longe r eligible based on patient's age to complete this topic Procedures Procedure Name Priority Date/Time Associated Diagnosis Comments REFLEXIVE URINE CULTURE (HC) Routine 12/03/2024 9:46 AM CDT HEMOGLOBIN A1C Routine 12/03/2024 9:46 AM CDT PROTEIN / CREATININE RATIO, URINE Routine 12/03/2024 9:46 AM CDT VITAMIN D 25 HYDROXY Routine 12/03/2024 9:46 AM CDT URINALYSIS, COMPLETE Routine 12/03/2024 9:46 AM CDT CBC AND DIFFERENTIAL Routine 12/03/2024 9:46 AM CDT PHOSPHATE ( PHOSPHORUS) Routine 12/03/2024 9:46 AM CDT COMPREHENSIVE METABOLIC PANEL Routine 12/03/2024 9:46 AM CDT LIPID PANEL Routine 12/03/2024 9:46 AM CDT PTH, INTACT AND CALCIUM Routine 12/03/2024 9:46 AM CDT from Last 3 Months Results * Reflexive Urine Culture (12/03/2024 9:46 AM CDT) Culture Result, Urine [facility] Comment:NO CULTURE INDICATED 12/03/2024 9:46 AM CDT 12/03/2024 9:51 AM CDT Narrative Resulting Agency Comment Performing Organization Information: Site ID: [place] Name: [facility] Address: [facility] [place] [address] Director: John Yeh us Iban Rosas MD LAB [id number] NSOLICITED RESULTS Final Result [facility] [address] [place] [address] * (ABNORMAL) Urinalysis, Complete w/reflex to Culture (12/03/2024 9:46 AM CDT) Color, Urine YELLOW YELLOW [facility] Appearance Urine CLEAR CLEAR [facility] Specific [place], UA 1.023 1.001 - 1.035 [facility] pH Urine < OR = 5.0(A) 5.0 - 8.0 [facility] Glucose, Ur 3+(A) NEGATIVE [facility] Bilirubin, Urine NEGATIVE NEGATIVE [facility] Ketones, Urine NEGATIVE NEGATIVE [facility] Hemoglobin Ur Ql Strip NEGATIVE NEGATIVE [facility] Protein, Ur 2+(A) NEGATIVE [facility] Nitrite, Urine NEGATIVE NEGATIVE [facility] WBC Esterase Urine NEGATIVE NEGATIVE [facility] WBC, Urine 0-5 < OR = 5 /HPF [facility] RBC, Urine NONE SEEN < OR = 2 /HPF [facility] Epithelial Cells in Urine 0-5 < OR = 5 /HPF [facility] Trans Epithelial, Urine CANCELED < OR = 5 /HPF [facility] Comment:Result canceled by t he ancillary. Renal Epithelial Cells, Urine CANCELED < OR = 3 /HPF [facility] Comment:Result canceled by t he ancillary. Bacteria NONE SEEN NONE SEEN /HPF [facility] Calcium Oxalate Crystals, Urine CANCELED NONE OR FEW /HPF [facility] Comment:Result canceled by t he ancillary. Triple Phosphate Crystals, Urine CANCELED NONE OR FEW /HPF [facility] Comment:Result canceled by t he ancillary. Uric Acid Crystals, Urine CANCELED NONE OR FEW /HPF [facility] Comment:Result canceled by t he ancillary. Amorphous Sediments CANCELED NONE OR FEW /HPF [facility] Comment:Result canceled by t he ancillary. Crystals CANCELED NONE SEEN /HPF [facility] Comment:Result canceled by t he ancillary. Hyaline Casts, Urine NONE SEEN NONE SEEN /LPF [facility] Granular Casts, Urine CANCELED NONE SEEN /LPF [facility] Comment:Result canceled by t he ancillary. Casts CANCELED NONE SEEN /LPF [facility] Comment:Result canceled by t he ancillary. Yeast, UA CANCELED NONE SEEN /HPF [facility] Comment:Result canceled by t he ancillary. Note: [facility] Comment: This urine was analyzed for the presence of WBC, RBC, bacteria, casts, and other formed elements. Only those elements seen were reported. 12/03/2024 9:46 AM CDT 12/03/2024 9:51 AM CDT Narrative Resulting Agency Comment Performing Organization Information: Site ID: [place] Name: [facility] Address: [address] [place] [place] [address] Director: John Yeh Iban Rosas MD LAB URINE ORDERABLES Final R esult [facility] [address] [place] [address] * (ABNORMAL) PTH, Intact and Calcium (12/03/2024 9:46 AM CDT) Parathyroid Hormone, Intact 93(H) 16 - 77 pg/mL [facility] Comment: Interpretive Guide Intact PTH Calcium ------- Normal Parathyroid Normal Normal Hypoparathyroidism Low or Low Normal Low Hyperparathyroidism Primary Normal or High High Secondary High Normal or Low Tertiary High High Non-Parathyroid Hypercalcemia Low or Low Normal High Calcium 9.0 8.6 - 10.3 mg/dL [facility] 12/03/2024 9:46 AM CDT 12/03/2024 9:51 AM CDT Narrative Resulting Agency Comment Performing Organization Information: Site ID: [place] Name: [facility] Address: [address] [address] Director: John Yeh MD Iban Rosas MD LAB BLOOD ORDERABLES Final R [facility] [address] [place] [address] * (ABNORMAL) Protein, Total, Random Urine w/Creatinine (Protein/Creat Ratio) (12/03/2024 9:46 AM CDT) Creatinine, Ur 142 20 - 320 mg/dL [facility] Urine Protein/Creati nine Ratio 810(H) 25 - 148 mg/g creat [facility] Protein/Creati nine Ratio, Urine 0.810(H) 0.025 - 0.148 mg/mg creat [facility] Protein Urine Random 115(H) 5 - 25 mg/dL [facility] 12/03/2024 9:46 AM CDT 12/03/2024 9:51 AM CDT Narrative Resulting Agency Comment Performing Organization Information: Site ID: Name: [facility] Address: [address] [place] [address] Director: John Yeh Iban Rosas MD LAB URINE ORDERABLES Final R [facility] Performing Organization Address [facility] Co de Phone Number [facility] [address] [place] [phone] * Vitamin D 25 Hydroxy (12/03/2024 9:46 AM CDT) Vitamin D, 25-OH, Total, IA 46 30 - 100 ng/mL [facility] Comment: Vitamin D Status 25-OH Vitamin D: Deficiency: <20 ng/mL Insufficiency: 20 - 29 ng/mL Optimal: > or = 30 ng/mL For 25-OH Vitamin D testing on patients on D2-supplementation and patients for whom quantitation of D2 and D3 fractions is required, the [facility](TM) 25-OH VIT D, (D2,D3), LC/MS/MS is recommended: order code 28594 (patients >2yrs). See Note 1 Note 1 For additional information, please refer to http://education.AdmitSee/faq/EJH633 (This link is being provided for informational/ educational purposes only.) 12/03/2024 9:46 AM CDT 12/03/2024 9:51 AM CDT Narrative Resulting Agency Comment Performing Organization Information: Site ID: [place] Name: [facility] Address: [address] [facility] [place] [address] Director: John Yeh MD us Iban Rosas MD LAB BLOOD ORDERABLES Final R esult [facility] Orte[facility] [id number] [place] [address] [place] [address] * (ABNORMAL) CBC and Differential (12/03/2024 9:46 AM CDT) WBC 7.1 3.8 - 10.8 Thousand/ uL [facility] RBC 4.88 4.20 - 5.80 Million/u L [facility] Hemoglobin 13.7 13.2 - 17.1 g/dL [facility] Hematocrit 44.6 38.5 - 50.0 % [facility] MCV 91.4 80.0 - 100.0 fL [facility] MCH 28.1 27.0 - 33.0 pg [facility] MCHC 30.7(L) 32.0 - 36.0 g/dL [facility] Comment: For adults, a slight decrease in the calculated MCHC value (in the range of 30 to 32 g/dL) is most likely not clinically significant; however, it should be interpreted with caution in correlation with other red cell parameters and the patient's clinical condition. RDW 13.5 11.0 - 15.0 % [facility] Platelets 115(L) 140 - 400 Thousand/ uL [facility] MPV 11.7 7.5 - 12.5 fL [facility] Neutrophils Absolute 5,055 1,500 - 7,800 cells/uL [facility] Band Neutrophils Absolute, Manual Count CANCELED 0 - 750 cells/uL [facility] Comment:Result canceled by t he ancillary. Metamyelocytes Absolute CANCELED 0 cells/uL [facility] Comment:Result canceled by t he ancillary. Absolute Myelocytes CANCELED 0 cells/uL [facility] Comment:Result canceled by t he ancillary. Absolute Promyelocytes CANCELED 0 cells/uL [facility] Comment:Result canceled by t he ancillary. Lymphocytes Absolute 1,228 850 - 3,900 cells/uL [facility] Monocytes Absolute 625 200 - 950 cells/uL [facility] Eosinophils Absolute 170 15 - 500 cells/uL [facility] Basophils Absolute 21 0 - 200 cells/uL [facility] Blasts Absolute CANCELED 0 cells/uL [facility] Comment:Result canceled by t he ancillary. NRBC Absolute CANCELED 0 cells/uL [facility] Comment:Result canceled by t he ancillary. Neutrophils Relative 71.2 % [facility] Bands Absolute CANCELED % [facility] Comment:Result canceled by t he ancillary. Metamyelocytes Percent CANCELED % [facility] Comment:Result canceled by t he ancillary. Myelocytes Relative CANCELED % [facility] Comment:Result canceled by t he ancillary. Promyelocytes Relative CANCELED % [facility] Comment:Result canceled by t ancillary. Lymphocytes 17.3 % [facility] Variant lymphocytes/100 WBC (Bld) CANCELED 0 - 10 % [facility] Comment:Result canceled by t he ancillary. Monocytes 8.8 % [facility] Eosinophils 2.4 % [facility] Basophils Relative 0.3 % [facility] Blasts CANCELED % [facility] Comment:Result canceled by t he ancillary. nRBC CANCELED 0 /100 WBC [facility] Comment:Result canceled by t he ancillary. Comment(s) CANCELED [facility] Comment:Result canceled by t he ancillary. 12/03/2024 9:46 AM CDT 12/03/2024 9:51 AM CDT Narrative Resulting Agency Comment Performing Organization Information: Site ID: [place] Name: [facility] Address: [address] [place] [address] Director: John Yeh Iban Rosas MD LAB BLOOD ORDERABLES Final R esult Performing Organization Address [facility] de Phone Number [facility] [place] [address] [place] [address] * (ABNORMAL) Phosphorus (12/03/2024 9:46 AM CDT) Phosphorus 4.6(H) 2.1 - 4.3 mg/dL [facility] 12/03/2024 9:46 AM CDT 12/03/2024 9:51 AM CDT Narrative Resulting Agency Comment Performing Organization Information: Site ID: Name: [facility] Address: [address] [place] [address] Director: John Yeh Iban Rosas MD LAB BLOOD ORDERABLES Final R esult Performing Organization Address [facility] de Phone Number [facility] [place] [address] [place] [address] * (ABNORMAL) Hemoglobin A1c (12/03/2024 9:46 AM CDT) Hemoglobin A1C 6.4(H) <5.7 % of total Hgb [facility] Comment: For someone without known diabetes, a hemoglobin A1c value between 5.7% and 6.4% is consistent with prediabetes and should be confirmed with a follow-up test. For someone with known diabetes, a value <7% indicates that their diabetes is well controlled. A1c targets should be individualized based on duration of diabetes, age, comorbid conditions, and other considerations. This assay result is consistent with an increased risk of diabetes. Currently, no consensus exists regarding use of hemoglobin A1c for diagnosis of diabetes for children. 12/03/2024 9:46 AM CDT 12/03/2024 9:51 AM CDT Narrative Resulting Agency Comment Performing Organization Information: Site ID: [place] Name: [facility] Address: [address] [place] [place] [address] Director: John Yeh Iban Rosas MD LAB BLOOD ORDERABLES Final R esult M[facility]UD SMITH [facility] [address] [place] [address] * (ABNORMAL) Lipid panel (12/03/2024 9:46 AM CDT) [facility] Cholesterol 128 <200 mg/dL [facility] HDL 37(L) > OR = 40 mg/dL [facility] Triglycerides 148 <150 mg/dL [facility] nick Allen LDL Direct 68 mg/dL (calc) [facility] Comment: Reference range: <100 Desirable range <100 mg/dL for primary prevention; <70 mg/dL for patients with CHD or diabetic patients with > or = 2 CHD risk factors. LDL-C is now calculated using the Dennis-Daniel calculation, which is a validated novel method providing better accuracy than the Friedewald equation in the estimation of LDL-C. Dennis SS et al. FERNIE. 2013;310(19): 4173-6125 (http://education.AdmitSee/faq/VDT318) Chol/HDL Ratio 3.5 <5.0 (calc) [facility] Non HDL Cholesterol 91 <130 mg/dL (calc) [facility] Comment: For patients with diabetes plus 1 major ASCVD risk factor, treating to a non-HDL-C goal of <100 mg/dL (LDL-C of <70 mg/dL) is considered a therapeutic option. 12/03/2024 9:46 AM CDT 12/03/2024 9:51 AM CDT Narrative Resulting Agency Comment Performing Organization Information: Site ID: [place] Name: [facility] Address: [address] [place] [address] Director: John Yeh us Iban Rosas MD LAB BLOOD ORDERABLES Final R esult [facility] [address] [place] [address] * (ABNORMAL) Comprehensive Metabolic Panel (12/03/2024 9:46 AM CDT) Glucose 93 65 - 99 mg/dL [facility] Comment: Fasting reference interval BUN 44(H) 7 - 25 mg/dL [facility] Creatinine 2.59(H) 0.70 - 1.28 mg/dL [facility] eGFR CKD-EPI CR 2020 26(L) > OR = 60 mL/min/1.7 3m2 [facility] BUN/Creatinine Ratio 17 6 - 22 (calc) [facility] Sodium 144 135 - 146 mmol/L [facility] Potassium 4.7 3.5 - 5.3 mmol/L [facility] Chloride 108 98 - 110 mmol/L [facility] Bicarbonate (CO2) 28 20 - 32 mmol/L [facility] Calcium 9.0 8.6 - 10.3 mg/dL [facility] Total Protein 6.8 6.1 - 8.1 g/dL [facility] Albumin 4.1 3.6 - 5.1 g/dL [facility] Globulin, Total 2.7 1.9 - 3.7 g/dL (calc) [facility] A/G Ratio 1.5 1.0 - 2.5 (calc) [facility] Total Bilirubin 0.4 0.2 - 1.2 mg/dL [facility] Alkaline Phosphatase 61 35 - 144 U/L [facility] AST (SGOT) 12 10 - 35 U/L [facility] ALT (SGPT) 13 9 - 46 U/L [facility] 12/03/2024 9:46 AM CDT 12/03/2024 9:51 AM CDT Narrative Resulting Agency Comment Performing Organization Information: Site ID: [place] Name: [facility]ud Orte[facility] Address: [address] [address] Director: John Yeh MD us Iban Rosas MD LAB BLOOD ORDERABLES Final R esult MOHAMUD Ortega [address] [address] from Last [address] [facility]
--- OUTSIDE RECORDS SUMMARY | 2025-01-14 14:39 | XMS_ITS | Clinical Summary ---
Author Organization [facility] [address] [place] [address] Care Team Providers Care Tow Picker Name Role Phone Delbert Crandall MD Unavailable Aggie Martinez MD Primary Care Provider [phone] Allergies Active Allergy Reactions Criticality Noted Date Comments Fluorescein Other (See comments) Low 01/14/2015 Medications aspirin 81 mg chewable tablet Take 1 tablet (81 mg total) by mouth daily 0 04/20/19 19 Active montelukast (SINGULAIR) 10 mg tablet Take 1 tablet (10 mg total) by mouth nightly 2 03/16/20 18 Active rosuvastatin (CRESTOR) 40 mg tablet Take 1 tablet (40 mg total) by mouth daily Active insulin aspart U-100 (NovoLOG) 100 unit/mL injection Inject under the skin 3 (three) times a day before meals Active finasteride (PROSCAR) 5 mg tablet Take 1 tablet (5 mg total) by mouth daily Active cholecalciferol (VITAMIN D-3) 2000 unit tablet Take 1 tablet (2,000 Units total) by mouth daily Active FLUoxetine (PROzac) 40 mg capsule Take 1 capsule (40 mg total) by mouth daily Active pregabalin (LYRICA) 100 mg capsule Take 1 capsule (100 mg total) by mouth 3 (three) times a day Active omeprazole/sodium bicarbonate (ZEGERID ORAL) Take by mouth A ctive dapagliflozin (FARXIGA) 5 mg tablet Take 1 tablet (5 mg total) 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 02/07/20 22 Active traZODone (DESYREL) 50 mg tablet Take 1 tablet (50 mg total) by mouth nightly Active Dexcom G6 Transmitter device 07/30/19 Active acetaminophen-code ine (TYLENOL with CODEINE #3) 300-30 mg per tablet Take 1-2 tablets by mouth every 6 (six) hours as needed for pain 15 tablet 08/29/19 24 Active Additional Information Patient not taking.Reported on 05/06/2024 SEMGLEE-yfgn 100 unit/mL (3 mL) pen for injection INJECT 60 UNITS UNDER THE SKIN TWICE DAILY 08/13/19 24 Active carvediloL (COREG) 3.125 mg tablet TAKE 1 TABLET(3.125 MG) BY MOUTH TWICE DAILY WITH MEALS 180 tablet 3 05/25/19 25 Active sacubitriL-valsart an (Entresto) 24-26 mg tabletIndications: Ischemic cardiomyopathy Take 1 tablet by mouth 2 (two) times a day 60 tablet 11 06/05/19 25 Active clopidogreL (PLAVIX) 75 mg tablet TAKE 1 TABLET(75 MG) BY MOUTH DAILY 90 tablet 2 09/23/19 25 Active Active Problems Problem Noted Date Diagnosed Date Trigger index finger of right hand 08/14/2023 Trigger middle finger of right hand 08/14/2023 CKD (chronic kidney disease), stage IV 3 Status post placement of implantable loop record er 07/30/2022 Overview (07/30/2022): Medtronic LNQ22 Loop Recorder. Dx; Cryptogenic Stroke. DOI 07/30/2022-[place]. [employer]link remote monitoring. Recurrent falls 11/17/2021 Dizziness 11/17/2021 Cerebrovascular accident (CVA) 11/17/2021 H/O cardiomyopathy 04/06/2020 S/P coronary artery stent placement 04/06/2020 Ischemic cardiomyopathy 12/25/2019 DM2 (diabetes mellitus, type 2) 10/29/2019 MELODY (acute kidney injury) ([facility]) 10/27/2019 CKD stage 3 due to type 2 diabetes mellitus 09/30 CAD (coronary artery disease) 10/27/2019 H/O acute myocardial infarction 10/27/2019 HFrEF (heart failure with re duced ejection fraction) ([facility]) 10/27/2019 Acute respiratory failure 10/27/2019 Cardiogenic shock 10/27/2019 PAD (peripheral artery disease) ([facility]) 2019 Overview (10/28/2019): Added automatically from request for surgery [id number] Coronary artery disease invo lving poarch coronary artery of poarch heart without angina pectoris 10/27/2019 Overview (10/29/2019): Added automatically from request for surgery [id number] Other chest pain 01/02/2019 Hypertension associated with diabetes 05/19/2018 Mixed diabetic hyperlipidemi a associated with type 2 diabetes mellitus 05/19/2018 Diabetic retinopathy 05/19/2018 Encounters Date Type Department Care Team Description 01/11/2025 Telephone [facility] [address] [phone] Araceli Mccann PA 12/14/2024 8:45 AM CDT Ancillary Procedure [facility] [address] [place] [address] [place] [phone] Status post placement of implantable loop recorder; Cryptogenic stroke ([facility]) 11/02/2024 9:00 AM CDT Ancillary Procedure [facility] [address] [place] [address] [place] [phone] Status post placement of implantable loop recorder; Cryptogenic stroke (HCC) from Last 3 Months Immunizations Immunization Administration Dates Next Due Anastasiya (J&J) SARS-CoV-2 Vaccination 12/16/2020 Surgical History Surgery Date Site/Laterality Comments CARDIAC CATHETERIZATION x2. CORONARY ANGIOPLASTY 5 stents EYE SURGERY 20 surgeries to save vision but all failed, he is now blind TRIGGER FINGER RELEASE 08/29/2023 Right index & long Medical History Medical History Date Comments Hypertension Hyperlipidemia Coronary artery disease Shortness of breath Type 2 diabetes mellitus CKD (chronic kidney disease) stage 3, GFR 30-59 ml/min ([facility]) CVA (cerebral vascular accident) ([facility]) small, no residual. two mini strokes. At high risk for falls dizziness Status post placement of imp lantable loop recorder Cardiomyopathy PAD (peripheral artery disease) CAD (coronary artery disease) [place] (myocardial infarction) ([facility]) x2. Blind CHF (congestive heart failure) ([facility]) Family History Medical History Relation Name Comments No Known Problems Brother No Known Problems Father No Known Problems Father's Brother No Known Problems Father's Sister No Known Problems Maternal Grandfather No Known Problems Maternal Grandmother No Known Problems Mother No Known Problems Mother's Brother No Known Problems Mother's Sister No Known Problems Other No Known Problems Paternal Grandfather No Known Problems Paternal Grandmother No Known Problems Sister Anemia Neg Hx Arrhythmia Neg Hx Asthma Neg Hx Clotting disorder Neg Hx Fainting Neg Hx Heart attack Neg Hx Heart disease Neg Hx Heart failure Neg Hx Hyperlipidemia Neg Hx Hypertension Neg Hx Hypertrophic cardiomyopathy Neg Hx Stroke Neg Hx Sudden Cardiac Neg Hx Relation Name Status Comments Brother Father Father's Brother Father's Sister Maternal Grandfather Maternal Grandmother Mother Mother's Brother Mother's Sister Other Paternal Grandfather Paternal Grandmother Sister Social History Tobacco Use Types Packs/Day Years Used Date Smoking Tobacco: Never Smokeless Tobacco: Never Tobacco Cessation:Counseling Given: Not Answered Alcohol Use Standard Drinks/Week Comments No 0 (1 standard drink = 0.6 oz pur e alcohol) AUDIT-C Answer Date Recorded Q1: How often do you have a drink containing alcohol? Never 08/29/2023 Q2: How many drinks containi ng alcohol do you have on a typical day when you are drinking? Patient does not drink Q3: How often do you have si x or more drinks on one occasion? Never 08/29/2023 Personal Safety Answer Date Recorded Have you ever been in or are you currently in a harmful physical or emotional relationship or is someone making you feel afraid or unsafe? 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 Gender Identity Not on file Sexual Orientation Not on file Obstetrics History Last Filed Vital Signs Vital Sign Reading Time Taken Comments Blood Pressure 130/62 05/06/2024 10:39 AM VAMP STITCHER Pulse 52 05/06/2024 10:39 AM VAMP STITCHER Temperature 36.3 C (97.3 F) 08/29/2023 10:05 AM CDT Respiratory Rate 16 08/29/2023 10:35 AM CDT Oxygen Saturation 97% 05/06/2024 10:39 AM VAMP STITCHER Inhaled Oxygen Concentration - - Weight 92.5 kg (204 lb) 05/06/2024 10:39 AM VAMP STITCHER Height 182.9 cm (6') 05/06/2024 10:39 AM VAMP STITCHER Body Mass Index 27.67 05/06/2024 10:39 AM VAMP STITCHER Plan of Treatment Health Maintenance Due Date Last Done Comments Albumin Creatinine Ratio, Urine 1954 Colon Cancer Screening-Colonoscopy 1954 Depression Screening 1954 Hepatitis C Screening 1954 Dilated Eye Exam 1954 Foot Exam 1954 DTaP/Tdap/Td Vaccine (1 - Tdap) 1965 Hepatitis B Screening 1972 Pneumococcal vaccine 65+ (1 of 2 - PCV) 1973 Zoster Vaccine (1 of 2) 2004 Well Visit 65+ 11/12/2019 Hemoglobin A1C 02/19/2024 08/19/2023, 11/30, 10/27/2019 eGFR 08/18/2024 08/19/2023, 020 08/2022, 04/16/2022, Additional history exists Fall Risk Assessment 08/28/2024 08/29/2023, 12/30/19 Covid-19 Vaccine (2 - 2024-2 6 season) 2024 12/16/2020 Influenza Vaccine (#1) 2024 Lipid Panel 12/03/2025 12/03/2024, 050 04/2024, 04/03/2024, Additional history exists Medical Devices Implanted Type Area Community Dietitian Device Identifier Shelf Expiration Date Model / Serial / Lot [employer] Susan [id number] Synergy 3.5mm 38mm 144cm Radiopaque 1 Access Port Inflation Lumen - [id number] - [id number] Implanted:Qty: 1 on 12/13/2020 by Delbert Crandall MD at [facility] Stent [employer] Susan 04/20/2022 [id number] / [id number] / [id number] Search Initiatives Cardiovascular [employer] [id number] Hemashield Chilkat 10mm 30cm Woven Smooth Needle Passage Suture - [id number] - [id number] Implanted:Qty: 1 on 10/28/2019 by Zaid Valencia MD at [facility] Right: Axilla [employer] 02/28/2022 [id number] / [id number] / [id number] [employer] Susan [id number] Synergy 3mm 38mm 144cm Radiopaque 1 Access Port Inflation Lumen - [id number] Implanted:Qty: 1 on 10/29/2019 by Garrick Estrella MD at [facility] [employer] Susan [id number] / / [employer] Susan [id number] Synergy 3mm 32mm 144cm Radiopaque 1 Access Port Inflation Lumen - [id number] Implanted:Qty: 1 on 10/29/2019 by Garrick Estrella MD at [facility] Scientific Susan [id number] / / [employer] Susan [id number] Synergy 2.25mm 20mm 144cm Radiopaque 1 Access Port Inflation - [id number] Implanted:Qty: 1 on 10/29/2019 by Garrick Estrella MD at [facility] Scientific [facility] [id number] / / Medtronic Inc [id number] Resolute Magnolia 2mm 15mm 140cm Rapid Exchange Delivery System - [id number] Implanted:Qty: 1 on 10/29/2019 by Garrick Estrella MD at [facility] Medtronic Inc [id number] / / [employer] [id number] Perclose 6fr Suture Mediate Knot Push Vascular Device Closure - [id number] - [id number] Implanted:Qty: 1 on 12/13/2020 by Delbert Crandall MD at [facility] [employer] 09/28/2022 [id number] / [id number] / [id number] Description:Left femoral art jones [employer] Susan/[employer] [id number] Angio-Seal Vip Bondek-Plus 8fr .038in 70cm Hemostatic Latex Free - [id number] - [id number] Implanted:Qty: 1 on 12/13/2020 by Delbert Crandall MD at [facility] [employer] Susan 09/28/2021 [id number] / [id number] / [id number] 2 Description:RFA Explanted Type Area Community Dietitian Device Identifier Shelf Expiration Date Model / Serial / Lot Abiomed Inc [id number] Pump Iab Impella 5l/Min Cath Microaxial - [id number] - [id number] Implanted:Qty: 1 on 10/28/2019 by Zaid Valencia MD at [facility] Explanted:Qty: 1 on 11/01/2019 by Zaid Valencia MD at [facility] Right: Axilla [employer] Inc 12/29/2020 [id number] / [id number] / Description:To be explanted at a later date Procedures Procedure Name Priority Date/Time Associated Diagnosis Comments DEVICE CHECK - REMOTE Routine 12/15/2024 12:06 PM CDT Status post placement of implantable loop recorder Cryptogenic stroke (HCC) DEVICE CHECK - REMOTE Routine 11/03/2024 9:07 AM CDT Status post placement of implantable loop recorder Cryptogenic stroke (HCC) EGFR STAT 08/19/2023 12:40 PM CDT Pre-op testing HEMOGLOBIN A1C STAT 08/19/2023 12:40 PM CDT Pre-op testing Diabetes mellitus due to underlying condition with unspecified complications (HCC) POCT LIPID PANEL Routine 07/05/2022 11:5 8 AM CDT Coronary artery disease involving poarch coronary artery of poarch heart without angina pectoris from Last 3 Months or Most Recently Relevant to Health Maintenance Results * DEVICE CHECK - REMOTE (12/15/2024 12:06 PM CDT) Anatomical Region Laterality Modality Other Narrative 01/07/2025 3:06 PM CDT Codasystemtronic LNQ22 Loop Recorder. Dx; Cryptogenic Stroke. DOI 07/30/2022-[place]. Carelink remote monitoring. Routine ILR remote. Normal device function. Battery function-good. Presenting rhythm: Sinus bradycardia Medications: ASA 81 mg, carvedilol 3.125 mg, clopidogrel 75 mg, rosuvastatin 40 mg, Entresto 24-26 mg Counters since last scheduled transmission on 11/02/24. No auto or patient recorded episodes noted. See scanned report. CareLink remote f/u 01/25/25. Pedro Wilkins RN Garrick Estrella MD [facility] PROCEDURES F inal Result * DEVICE CHECK - REMOTE (11/03/2024 9:07 AM CDT) Anatomical Region Laterality Modality Other Narrative 11/24/2024 12:30 PM CDT [employer] LNQ22 Loop Recorder. Dx; Cryptogenic Stroke. DOI 07/30/2022-[place]. Carelink remote monitoring. Routine ILR remote. Normal device function. Battery function-good. Presenting rhythm: Sinus bradycardia Medications: ASA 81 mg, carvedilol 3.125 mg, clopidogrel 75 mg, rosuvastatin 40 mg, Entresto 24-26 mg Counters since last scheduled transmission on 09/21/24. No auto or patient recorded episodes noted. See scanned report. [facility]Link remote f/u 12/14/24. Pedro Wilkins RN Garrick Estrella MD [facility] C[facility] SERVICES PROCEDURES F inal Result * (ABNORMAL) eGFR (08/19/2023 12:40 PM CDT) eGFR 25(L) >=60 mL/min/1. 73 m2 Comment: Interpretive Data Reference Interval Normal >/= 90 mL/min/1.73m2 Mildly decreased* 60 - 89 mL/min/1.73m2 Mildly to moderately decreased 45 - 59 mL/min/1.73m2 Moderately to severely decreased 30 - 44 mL/min/1.73m2 Severely decreased 15 - 29 mL/min/1.73m2 Kidney Failure < 15 mL/min/1.73m2 *Relative to young adult level Estimated glomerular filtration rate is determined by the 2020 CKD-EPI equation recommended by the National Kidney Foundation (A Unifying Approach to GFR Estimation: Recommendations of the NKF-ASK Task Force on Reassessing the Inclusion of Race in Diagnosing Kidney Disease, JASN 2020). The CKD-EPI equation should not be used for patients with unstable renal function and has not been validated in children and those over 70. Current interpretive data was last reviewed 2021. Blood 08/19/2023 12:4 0 PM CDT 08/19/2023 1:15 PM CDT Pancho Russell MD LAB BLOOD ORDERABLES Final Re sult Performing Organization Address [facility] de Phone Number [address] [address] * (ABNORMAL) Hemoglobin A1c (08/19/2023 12:40 PM CDT) Hgb A1C 7.5(H) 4.0 - 5.6 % Estimated Average Glucose 169 mg/dL [facility] Comment: The ADA recommends reporting an estimated Average Glucose (eAG) with all Hemoglobin A1c results using the equation derived from a study of 507 normal and diabetic adults. Minority populations were underrepresented and children were not included. (Diabetes Care 31:9131-6013, 2008). The eAG is not equivalent to a fasting glucose. Blood 08/19/2023 12:4 0 PM CDT 08/19/2023 1:15 PM CDT Pancho Russell MD LAB BLOOD ORDERABLES Final Re sult Performing Organization Address [facility] de Phone Number [address] [address] * POCT lipid panel (07/05/2022 11:58 AM CDT) Cholesterol, POC 138 mg/dL Comment:GLU = 81 HDL, POC 36 mg/dL Triglycerides, POC 172 mg/dL LDL Cholesterol POC 67 mg/dL Chol/HDL Ratio, POC 1.9 Non-HDL Cholesterol, POC 102 mg/dL Cholesterol Total, POC 138 mg/dL Capillary blood 07/05/2022 1 1:58 AM CDT Stef Choudhury MD POINT OF CARE TEST ORDER CHELO Final Result from Last 3 Months or Most Recently Relevant to Health Maintenance Insurance [facility] ADVANTAGE CHOICE [place] [address] [place] [address] MEDICARE BLUE ACCESS RI [employer] ADVANT[employer] CHOICE PPO Advance Directives For more information, please contact: [phone] * Full Code (Latest Code Status on File) Date Activated Date Inactivated Comments 12/13/2020 1:06 AM 12/19/2020 8:55 PM * Full Code Date Activated Date Inactivated Comments 10/27/2019 2:49 PM 11/12/2019 7:38 PM * Full Code Date Activated Date Inactivated Comments 10/27/2019 2:49 PM 10/27/2019 2:49 PM Care Teams Tow Picker Relationship Specialty Start Date End Date Aggie Martinez MD PCP - General Family Medicine 04/19/21 Delbert Crandall MD Referring Physician Cardiovascular Disease 12/19/20
--- OUTSIDE RECORDS SUMMARY | 2025-01-14 14:39 | XMS_ITS | Clinical Summary ---
Author Organization [facility] [employer] Address [address] [place] [address] Care Team Providers Care Proposal Editor Name Role Phone Eliecer Melendez MD Primary Care Provider Source Comments [facility] [employer],non-owned Affiliates and Associated Physician Practices is amultiple site organization consisting of ambulatory clinics and hospital sitesin [place], [place], [place] and [place]. This disclosure is being madepursuant to the Care Everywhere program and may not contain all information available regarding this patient. Last updated 17.[facility] [employer] Allergies Active Allergy Reactions Criticality Noted Date Comments Fluorescein GI Discomfort 01/14/2015 Medications * Be aware that medications may not be up to date on this document. Alwaysverify current medications with the patient. LANTUS SC Inject 130 Units subcutaneously at bedtime Pt took 80 units of lantus insulin at 0600 today Active HUMALOG SC Inject 40 Units subcutaneously 3 times daily before meals. Active fluticasone propionate (FLONASE) 50 MCG/ACT nasal spray [place] 2 Sprays into each nostril at bedtime. Active montelukast (SINGULAIR) 10 MG tablet Take 20 mg by mouth at bedtime. Active lisinopril (PRINIVIL; ZESTRIL) 20 MG tablet Take 20 mg by mouth daily. Active simvastatin (ZOCOR) 20 MG tablet Take 20 mg by mouth at bedtime. Active Ibuprofen-Diphe nhydramine HCl (ADVIL PM) 200-25 MG CAPS Take 2 Tabs by mouth at bedtime. Active Other Andogel 5 grams topical daily Active ondansetron (ZOFRAN) 4 MG tablet Take 4 mg by mouth every 6 hours as needed for Nausea/Vomiting Active hydrocodone-floridalma taminophen (NORCO) 5-325 MG tablet Take 1 Tab by mouth every 4 hours as needed for Pain Active Omeprazole-Sodi um Bicarbonate (ZEGERID OTC PO) Take 1 Tab by mouth at bedtime Active Active Problems No known active problems Family History Medical History Relation Name Comments Seizures Father Diabetes Maternal Grandfather Cancer Mother Hypertension Mother Diabetes Paternal Grandmother Relation Name Status Comments Father Maternal Grandfather Mother Paternal Grandmother Social History Tobacco Use Types Packs/Day Years Used Date Smoking Tobacco: Never Smokeless Tobacco: Never Alcohol Use Standard Drinks/Week Comments No 0 (1 standard drink = 0.6 oz pur e alcohol) Sex and Gender Information Value Date Recorded Sex Assigned at Not on file 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 Gender Identity Not on file Sexual Orientation Not on file Last Filed Vital Signs Vital Sign Reading Time Taken Comments Blood Pressure 143/74 01/14/2015 8:15 PM CDT Pulse 78 01/14/2015 8:15 PM CDT Temperature 36.5 C (97.7 F) 01/14/2015 8:05 PM CDT Respiratory Rate 20 01/14/2015 8:15 PM CDT Oxygen Saturation 90% 01/14/2015 8:15 PM CDT Inhaled Oxygen Concentration - - Weight 90.7 kg (200 lb) 01/14/2015 3:08 PM CDT Height 182.9 cm (6') 01/14/2015 3:08 PM CDT Body Mass Index 27.12 01/14/2015 3:08 PM CDT Plan of Treatment Health Maintenance Due Date Last Done Comments COLOGUARD (AGES 45-75) - COL ON CA SCREENING 1954 COLON MONITORING 1954 COLONOSCOPY - COLON CA SCREENING 1954 CT COLONOGRAPHY - COLON CA SCREENING 1954 Colorectal Cancer Screening 1954 FIT - COLON CA SCREENING 1954 FLEX SIG - COLON CA SCREENING 1954 HEPATITIS C SCREENING 11/06/1972 DTAP/TDAP/TD VACCINES (1 - Tdap) 1973 PNEUMOCOCCAL VACCINE 50+ (1 of 1 - PCV) 2004 ZOSTER VACCINE (1 of 2) 2004 DEPRESSION SCREENING 04/01/2024 COVID-19 VACCINE (1 - 2023-2 5 season) 2024 INFLUENZA VACCINE (#1) 2024 Respiratory Syncytial Virus (RSV) Vaccine Pt: or over 60 yrs (1 - 1-dose 75+ series) 2029 HEPATITIS B VACCINE Aged Out No longe r eligible based on patient's age to complete this topic HIB VACCINE Aged Out No longer eligi ble based on patient's age to complete this topic HPV VACCINE Aged Out No longer eligi ble based on patient's age to complete this topic MENINGOCOCCAL (Group B) VACC INE SHARED DECISION-MAKING Aged Out No longer eligibl e based on patient's age to complete this topic MENINGOCOCCAL GROUPS A/C/Y/W VACCINE Aged Out No longer eligible b ased on patient's age to complete this topic Insurance Care Teams Proposal Editor Relationship Specialty Start Date End Date Eliecer Melendez MD [address] [address] PCP - General Family Medicine 01/14/15
--- NOTE | 2025-01-14 14:59 | ED.NEUROSD ---
HPI - Neuro Symptoms/Deficit General Chief Complaint: Neuro Symptoms/Deficit <Kinga Padgett PA-C - Last Filed: 01/15/25 17:12> Stated Complaint: L LEG DRAGGING SINCE SATURDAY <Kinga Padgett PA-C - Last Filed: 01/15/25 17:12> Time Seen by Provider: 01/14/25 14:59 <Kinga Padgett PA-C - Last Filed: 01/15/25 17:12> Focused HPI: This is a 69 year old male that presents to the ER for left leg weakness. Reports since he woke up Saturday morning he has had weakness in his left leg. It is dragging when he walks. No other focal numbness, weakness. GENERAL: Well-appearing, well-nourished, and in no acute distress. HEAD: Normocephalic, atraumatic. CHEST: Clear to auscultation. ?No respiratory distress. HEART: Regular rate and rhythm.? NEURO: ?Alert and oriented x3. Patient screened in triage and initial orders placed.? ?Additional care and disposition to be based upon?diagnostic testing and treatment. <Kinga Padgett PA-C - Last Filed: 01/15/25 17:12> History of Present Illness HPI Narrative: I agree with the HPI as described in the medical screening exam. <Saad Frausto MD - Last Filed: 01/14/25 19:39> Related Data Home Medications: Home Medications ?Medication ?Instructions ?Recorded ?Confirmed ?Last Taken ?Type aspirin 81 mg tablet,delayed 81 mg PO DAILY 05/25/19 01/15/25 01/14/25 08:30 History release (Adult Low Dose Aspirin) carvedilol 6.25 mg tablet 3.125 mg PO BID 08/18/20 01/15/25 01/14/25 08:30 History clopidogrel 75 mg tablet 75 mg PO DAILY 08/18/20 01/15/25 01/13/25 20:30 History sacubitril 24 mg-valsartan 26 mg 1 tablet PO BID 03/09/22 01/15/25 01/14/25 08:30 History tablet (Entresto) cholecalciferol (vitamin D3) 50 50 mcg PO DAILY 07/27/22 01/15/25 01/14/25 08:30 History mcg (2,000 unit) tablet dapagliflozin propanediol 5 mg 5 mg PO DAILY 01/15/25 01/15/25 01/14/25 History tablet (Farxiga) insulin lispro 100 unit/mL See Rx Instructions subcut .COMPLEX 01/15/25 01/15/25 01/14/25 History subcutaneous pen (Humalog KwikPen (U-100) Insulin) omeprazole 20 mg-sodium 1 cap PO DAILY 01/15/25 01/15/25 01/14/25 History bicarbonate 1.1 gram capsule (Zegerid OTC) pregabalin 100 mg capsule (Lyrica) 100 mg PO QAM 01/15/25 01/15/25 01/14/25 History pregabalin 200 mg capsule 200 mg PO HS 01/15/25 01/15/25 01/13/25 History <Kinga Padgett PA-C - Last Filed: 01/15/25 17:12> Allergies/Adverse Reactions: Allergies Allergy/AdvReac Type Severity Reaction Status Date / Time fluorescein AdvReac Nausea and Verified 01/15/25 09:20 Vomiting <Kinga Padgett PA-C - Last Filed: 01/15/25 17:12> Review of Systems Review of Systems: All systems reviewed & are unremarkable except as noted in HPI and below <Saad Frausto MD - Last Filed: 01/14/25 19:39> [facility] Past Medical History Medical History: Medical History Implantable loop recorder present Peripheral vascular disease CVA (cerebral vascular accident) CAD (coronary artery disease) DM2 (diabetes mellitus, type 2) Blind Both eyes Heart attack (~09/2019) Cardiogenic shock Chronic kidney disease, stage 3 Herpes simplex Hypertriglyceridemia COPD (chronic obstructive pulmonary disease) BPH (benign prostatic hyperplasia) Peripheral neuropathy Erectile dysfunction Low testosterone Chronic pain Hyperlipidemia Hypertension Trigger finger <Kinga Padgett PA-C - Last Filed: 01/15/25 17:12> Surgical History Surgical History: Surgical History (Updated 01/14/25 @ 20:04 by Bethanie Carmona APRN) Status post trigger finger release H/O hand surgery Left hand History of coronary artery stent placement Four cardiac stents [facility] H/O skin graft of the right thigh as a child History of knee surgery <Kinga Padgett PA-C - Last Filed: 01/15/25 17:12> Family History Family History: Family History Grandparent Diabetes mellitus Mother Tuberculosis Dementia Father Dementia Hx of CABG in his early 60s <Kinga Padgett PA-C - Last Filed: 01/15/25 17:12> Social History Social History: Social History (Updated 01/15/25 @ 05:22 by Bethanie Carmona APRN) Social History: He is . The patient has 2 biologic biological children and his has 1 adopted child. Code status: Full code Primary care physician: Dr. Martinez Code status: Full code Smoking status: Former smoker Tobacco type: cigarettes Second hand tobacco smoke exposure: Yes (first ) Smoking end date: 04/01/74 Alcohol intake: former Drinks per week: 42 Substance use: never Substance use type: does not use Lack of Transportation: No Lack of Food: Never True Current Housing: I Have Housing Concerned About Future Housing: No Difficulty Paying Gas/Electric Bills: No Difficulty Paying for Meds: No Currently Unemployed: No Education: Associate Degree Difficulty w/ Childcare or Family Care: No Living arrangements: with family Additional living arrangements comments: he lives with his and children. Occupation/Education: retired Additional occupation/education comments: Patient is disabled due to complications of diabetes. Gender identity (if verbalized by the patient): Male Spiritual care concerns: No Agree to blood products: Yes <Kinga Padgett PA-C - Last Filed: 01/15/25 17:12> Exam Narrative: GENERAL: Well-developed, well-nourished, and in no acute distress. HEAD: Normocephalic, atraumatic. EYES: Both corneas are clouded. Pupils not reactive. EOMI CHEST: Clear to auscultation. No respiratory distress. No wheezes rales or rhonchi HEART: Regular rate and rhythm. No murmur heard. Normal peripheral pulses. ABDOMEN: Soft, nontender, nondistended, normal active bowel sounds. EXTREMITIES: Normal range of motion. No edema. SKIN: Warm, dry, no rash. NEURO: Alert and oriented x3. Some left leg and left arm drift. Strength 5/5 in the right in upper and lower extremities. Sensation intact bilaterally. Some ataxia noted in the left upper and lower extremity. No noted ataxia on the right. Cranial nerves otherwise intact. PSYCH: Normal mood and affect. <Saad Frausto MD - Last Filed: 01/14/25 19:39> Course Course Emergency Course: 19:15 - CBC demonstrates baseline anemia of hemoglobin of 13 but is otherwise unremarkable. Chemistries demonstrate creatinine elevation of 2.4 with a baseline of 1.9. Troponin negative. Urinalysis demonstrates 3+ glucose but is not concerning for UTI. CT head not concerning for intracranial hemorrhage or mass. CT angiogram not concerning for large vessel occlusion or aneurysm. I discussed the patient with neurologist, Dr. Sultana who agrees to consult. I discussed the patient with hospitalist, YVONNE Carmona who accepts admission. <Saad Frausto MD - Last Filed: 01/14/25 19:39> Vital Signs Vital signs: Vital Signs Temperature 98.5 F 01/14/25 13:19 Pulse Rate 65 01/14/25 13:19 Respiratory Rate 17 01/14/25 13:19 Blood Pressure 145/57 H 01/14/25 13:19 Pulse Oximetry 96 01/14/25 13:19 Oxygen Delivery Room Air 01/14/25 13:19 Temperature 97.9 F 01/15/25 14:00 Pulse Rate 63 01/15/25 14:00 Respiratory Rate 18 01/15/25 14:00 Blood Pressure 149/64 H 01/15/25 14:00 Pulse Oximetry 99 01/15/25 14:00 Oxygen Delivery Room Air 01/15/25 09:00 <Kinga Padgett PA-C - Last Filed: 01/15/25 17:12> Vital Signs Temperature 98.5 F 01/14/25 13:19 Pulse Rate 65 01/14/25 13:19 Respiratory Rate 17 01/14/25 13:19 Blood Pressure 145/57 H 01/14/25 13:19 Pulse Oximetry 96 01/14/25 13:19 Oxygen Delivery Room Air 01/14/25 13:19 Temperature 97.9 F 01/15/25 14:00 Pulse Rate 63 01/15/25 14:00 Respiratory Rate 18 01/15/25 14:00 Blood Pressure 149/64 H 01/15/25 14:00 Pulse Oximetry 99 01/15/25 14:00 Oxygen Delivery Room Air 01/15/25 09:00 <Saad Frausto MD - Last Filed: 01/14/25 19:39> MDM - Neuro Symptoms/Deficit MDM Narrative Medical decision making narrative: Plan: Labs, imaging, EKG, neurology consultation, reassess <Saad Frausto MD - Last Filed: 01/14/25 19:39> Differential Diagnosis Differential diagnosis: Likely cerebrovascular accident, transient cerebral ischemia and other (Intracranial hemorrhage, intracranial mass, metabolic abnormality, UTI, anemia, other) <Saad Frausto MD - Last Filed: 01/14/25 19:39> Lab Data Result diagrams: 01/15/25 06:03 01/15/25 06:03 <Kinga Padgett PA-C - Last Filed: 01/15/25 17:12> Labs: Lab Results 01/14/25 01/14/25 Range/Units 17:12 18:21 WBC 7.0 (4.5-10.0) K/mm3 RBC 4.87 (4.6-6.20) M/mm3 Hgb 13.4 L (14.0-18.0) g/dL Hct 42.3 (42.0-52.0) % MCV 86.9 (80-100) fl MCH 27.5 (26-34) pg MCHC 31.7 L (32-36) g/dl RDW 13.6 (11.5-14.5) % Plt Count 117 L (150-375) k/mm3 MPV 10.7 H (7.4-10.4) fl Immature Gran % (Auto) 0.1 (0-0.5) % Neut % (Auto) 69.1 (45.5-73.1) % Lymph % (Auto) 20.6 (18.3-44.2) % [place] % (Auto) 8.3 (2.6-8.5) % Eos % (Auto) 1.8 (0-4.4) % Baso % (Auto) 0.1 L (0.2-1.2) % Lymph # (Auto) 1.45 (0.9-3.2) K/mm3 [place] # (Auto) 0.6 (0.1-0.6) K/mm3 Eos # (Auto) 0.1 (0-0.3) K/mm3 Baso # (Auto) 0.0 (0.0-0.1) K/mm3 Abs Immat Gran (auto) 0.01 (0.00-0.031) K/mm3 Absolute Neuts (auto) 4.9 (1.3-6.7) K/mm3 Absolute Nucleated RBC 0.000 (0.0-0.012) K/mm3 Nucleated RBC % 0.0 (0.0-0.2) % PT 13.9 (11.1-14.7) Seconds INR 1.1 APTT 28.0 (22.3-36.8) Seconds Sodium 141 (137-145) mmol/L Potassium 4.8 (3.4-5.0) mmol/L Chloride 109 H (98-107) mmol/L Carbon Dioxide 25 (22-30) mmol/L Anion Gap 7 (4-12) mmol/L BUN 38 H (9-20) mg/dL Creatinine 2.41 H (0.7-1.3) mg/dL Estim Creat Clear Calc 29 ml/min Estimated GFR 27 L (59 - ) Glucose 203 H (65-110) mg/dL Calcium 8.8 (8.4-10.2) mg/dL Total Bilirubin 0.3 (0.2-1.3) mg/dL AST 20 (17-59) U/L ALT 16 (6-50) U/L Alkaline Phosphatase 62 (38-126) U/L Troponin I < 0.012 (0.000-0.034) ng/mL Total Protein 7.1 (6.3-8.2) g/dL Albumin 3.9 (3.5-5.1) g/dL Urine Color Yellow (Yellow) Urine Appearance Clear (Clear) Urine pH 5.5 (5.0-9.0) Ur Specific [place] 1.023 (1.001-1.035) Urine Protein 2+ H (Negative) mg/dL Urine Glucose (UA) 3+ H (Negative) mg/dL Urine Ketones Negative (Negative) mg/dL Ur Blood (Man) Trace (Negative) Urine Nitrate Negative (Negative) Urine Bilirubin Negative (Negative) Urine Urobilinogen 0.2 (<2.0) mg/dL Leukocyte Esterase Rfl Negative (Negative) [place]/UL Urine RBC 0-2 (0-2) /hpf Urine WBC 0-5 (0-3) /hpf Ur Squamous Epith Cells None seen (Few) /hpf Urine Bacteria None seen /hpf Urine Casts 0-2 Urine Opiates Screen Negative (Negative) Urine Methadone Screen Negative (Negative) Ur Barbiturates Screen Negative (Negative) Ur Phencyclidine Scrn Negative (Negative) Ur Amphetamine Screen Negative (Negative) U Benzodiazepines Scrn Negative (Negative) Urine Cocaine Screen Negative (Negative) U Cannabinoids Screen Negative (Negative) <Kinga Padgett PA-C - Last Filed: 01/15/25 17:12> Lab Results 01/14/25 01/14/25 Range/Units 17:12 18:21 WBC 7.0 (4.5-10.0) K/mm3 RBC 4.87 (4.6-6.20) M/mm3 Hgb 13.4 L (14.0-18.0) g/dL Hct 42.3 (42.0-52.0) % MCV 86.9 (80-100) fl MCH 27.5 (26-34) pg MCHC 31.7 L (32-36) g/dl RDW 13.6 (11.5-14.5) % Plt Count 117 L (150-375) k/mm3 MPV 10.7 H (7.4-10.4) fl Immature Gran % (Auto) 0.1 (0-0.5) % Neut % (Auto) 69.1 (45.5-73.1) % Lymph % (Auto) 20.6 (18.3-44.2) % [place] % (Auto) 8.3 (2.6-8.5) % Eos % (Auto) 1.8 (0-4.4) % Baso % (Auto) 0.1 L (0.2-1.2) % Lymph # (Auto) 1.45 (0.9-3.2) K/mm3 [place] # (Auto) 0.6 (0.1-0.6) K/mm3 Eos # (Auto) 0.1 (0-0.3) K/mm3 Baso # (Auto) 0.0 (0.0-0.1) K/mm3 Abs Immat Gran (auto) 0.01 (0.00-0.031) K/mm3 Absolute Neuts (auto) 4.9 (1.3-6.7) K/mm3 Absolute Nucleated RBC 0.000 (0.0-0.012) K/mm3 Nucleated RBC % 0.0 (0.0-0.2) % PT 13.9 (11.1-14.7) Seconds INR 1.1 APTT 28.0 (22.3-36.8) Seconds Sodium 141 (137-145) mmol/L Potassium 4.8 (3.4-5.0) mmol/L Chloride 109 H (98-107) mmol/L Carbon Dioxide 25 (22-30) mmol/L Anion Gap 7 (4-12) mmol/L BUN 38 H (9-20) mg/dL Creatinine 2.41 H (0.7-1.3) mg/dL Estim Creat Clear Calc 29 ml/min Estimated GFR 27 L (59 - ) Glucose 203 H (65-110) mg/dL Calcium 8.8 (8.4-10.2) mg/dL Total Bilirubin 0.3 (0.2-1.3) mg/dL AST 20 (17-59) U/L ALT 16 (6-50) U/L Alkaline Phosphatase 62 (38-126) U/L Troponin I < 0.012 (0.000-0.034) ng/mL Total Protein 7.1 (6.3-8.2) g/dL Albumin 3.9 (3.5-5.1) g/dL Urine Color Yellow (Yellow) Urine Appearance Clear (Clear) Urine pH 5.5 (5.0-9.0) Ur Specific [place] 1.023 (1.001-1.035) Urine Protein 2+ H (Negative) mg/dL Urine Glucose (UA) 3+ H (Negative) mg/dL Urine Ketones Negative (Negative) mg/dL Ur Blood (Man) Trace (Negative) Urine Nitrate Negative (Negative) Urine Bilirubin Negative (Negative) Urine Urobilinogen 0.2 (<2.0) mg/dL Leukocyte Esterase Rfl Negative (Negative) M[place]/UL Urine RBC 0-2 (0-2) /hpf Urine WBC 0-5 (0-3) /hpf Ur Squamous Epith Cells None seen (Few) /hpf Urine Bacteria None seen /hpf Urine Casts 0-2 Urine Opiates Screen Negative (Negative) Urine Methadone Screen Negative (Negative) Ur Barbiturates Screen Negative (Negative) Ur Phencyclidine Scrn Negative (Negative) Ur Amphetamine Screen Negative (Negative) U Benzodiazepines Scrn Negative (Negative) Urine Cocaine Screen Negative (Negative) U Cannabinoids Screen Negative (Negative) <Saad Frausto MD - Last Filed: 01/14/25 19:39> Imaging Data Radiologist's impression: ITS Impressions Head CT 01/14/25 15:16 Impression: 1.No acute intracranial abnormality. Chest X-Ray 01/14/25 15:24 Impression: No acute cardiopulmonary abnormality. Head/Neck CTA 01/14/25 18:25 IMPRESSION: No hemodynamically significant stenosis is noted of the cervical and intracranial arterial vasculature. Multiple left thyroid lobe nodules measuring up to 2 cm. Follow-up ultrasound is recommended. <Kinga Padgett PA-C - Last Filed: 01/15/25 17:12> ECG Data EKG #1: Attestation: I personally reviewed and interpreted this ECG as follows: <Saad Frausto MD - Last Filed: 01/14/25 19:39> ECG completion date: 01/14/25 <Saad Frausto MD - Last Filed: 01/14/25 19:39> ECG completion time: 17:17 <Saad Frausto MD - Last Filed: 01/14/25 19:39> Prior ECG tracings: not available for review <Saad Frausto MD - Last Filed: 01/14/25 19:39> Interpretation: Sinus bradycardia, rate 51, normal axis, no ST segment elevations or T-wave inversions concerning for ischemia, normal intervals with QTC of 431. <Saad Frausto MD - Last Filed: 01/14/25 19:39> Discharge Plan Discharge Clinical Impression: Left arm weakness, Left leg weakness Stroke Qualifiers: CVA mechanism: unspecified Qualified Code(s): I63.9 - Cerebral infarction, unspecified <Kinga Padgett PA-C - Last Filed: 01/15/25 17:12> Patient Disposition: Still a Patient <Kinga Padgett PA-C - Last Filed: 01/15/25 17:12> Condition: Serious <Kinga Padgett PA-C - Last Filed: 01/15/25 17:12> Time of Disposition: 19:15 <Kinga Padgett PA-C - Last Filed: 01/15/25 17:12> 19:15 <Saad Frausto MD - Last Filed: 01/14/25 19:39>
--- NOTE | 2025-01-14 15:00 | ECG_ITS ---
Test Date: 2025-01-14 17:17:40 Measurements Intervals [place] Rate: 51 P: 3 [place]: 155 QRS: -22 QRSD: 87 T: 82 QT: 431 QTc: 397 Interpretive Statements SINUS BRADYCARDIA BORDERLINE ST-T WAVE ABNORMALITY- HIGH LATERAL LEADS BASELINE ARTIFACT- I, II, AVR BORDERLINE ECG No previous ECG available for comparison Electronically Signed On 01-14-2025 20:42:16 CDT by Jay Ferguson D.O.
[2025-01-14 17:20] LABS: Hematocrit 42.3 % (42.0-52.0); Hemoglobin 13.4 g/dL (14.0-18.0); Immature Granulocyte Percent A 0.1 % (0-0.5); Lymphocytes Absolute Auto 1.45 K/mm3 (0.9-3.2); Mean Corpuscular HGB Conc 31.7 g/dl (32-36); Mean Corpuscular Hemoglobin 27.5 pg (26-34); Mean Corpuscular Volume 86.9 fl (80-100); Nucleated Red Blood Cells Absolute Auto 0.000 K/mm3 (0.0-0.012); Nucleated Red Blood Cells Perc 0.0 % (0.0-0.2); Platelet Count Result 117 k/mm3 (150-375); Red Blood Count 4.87 M/mm3 (4.6-6.20); White Blood Count 7.0 K/mm3 (4.5-10.0)
[2025-01-14 17:33] LABS: INR 1.1; Partial Thromboplastin Time 28.0 Seconds (22.3-36.8); Prothrombin Time 13.9 Seconds (11.1-14.7)
[2025-01-14 17:37] LABS: Alanine Aminotransferase 16 U/L (6-50); Albumin Level 3.9 g/dL (3.5-5.1); Alkaline Phosphatase 62 U/L (38-126); Anion Gap 7 mmol/L (4-12); Aspartate Amino Transferase 20 U/L (17-59); Bilirubin,Total 0.3 mg/dL (0.2-1.3); Blood Urea Nitrogen 38 mg/dL (9-20); Calcium 8.8 mg/dL (8.4-10.2); Carbon Dioxide 25 mmol/L (22-30); Chloride 109 mmol/L (98-107); Estimated CRCL calculation 29 ml/min; Estimated Glomerular Filt Rate 27; Glucose 203 mg/dL (65-110); Potassium 4.8 mmol/L (3.4-5.0); Sodium 141 mmol/L (137-145); Total Protein 7.1 g/dL (6.3-8.2)
[2025-01-14 17:48] LABS: Troponin I < 0.012 ng/mL (0.000-0.034)
--- OUTSIDE RECORDS SUMMARY | 2025-01-14 18:07 | XMS_ITS | Clinical Summary ---
Author Organization [facility] Address [address] [place] [address] Care Team Providers Care Director It Project Name Role Phone Eliecer Melendez MD Primary Care Provider [phone] Source Comments [facility],non-owned Affiliates and Associated Physician Practices is amultiple site organization consisting of ambulatory clinics and hospital sitesin [place], [place], [place] and [place]. This disclosure is being madepursuant to the Care Everywhere program and may not contain all information available regarding this patient. Last updated 17.[facility] Allergies Active Allergy Reactions Criticality Noted Date [...] fluticasone propionate (FLONASE) 50 MCG/ACT nasal spray [place] 2 Sprays into each nostril at bedtime. 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
--- OUTSIDE RECORDS SUMMARY | 2025-01-14 18:07 | XMS_ITS | Clinical Summary ---
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
--- OUTSIDE RECORDS SUMMARY | 2025-01-14 18:07 | XMS_ITS | Clinical Summary ---
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 02/07/20 22 Active traZODone [...] type 2) 10/29/2019 MELODY (acute kidney injury) ([facility]) 10/27/2019 CKD stage 3 due to type 2 diabetes mellitus 09/30 CAD (coronary artery disease) 10/27/2019 H/O acute myocardial infarction 10/27/2019 HFrEF (heart failure with re duced ejection fraction) ([facility]) 10/27/2019 Acute respiratory failure 10/27/2019 Cardiogenic shock 10/27/2019 PAD (peripheral artery disease) ([facility]) 2019 Overview (10/28/2019): Added automatically from request for surgery [id number] Coronary artery disease invo lving [place] coronary artery of [place] heart without angina pectoris 10/27/2019 Overview (10/29/2019): Added automatically from request for surgery [id number] Other chest pain 01/02/2019 Hypertension associated with diabetes 05/19/2018 Mixed diabetic hyperlipidemi a associated with type 2 diabetes mellitus 05/19/2018 Diabetic retinopathy 05/19/2018 Encounters Date Type Department Care Team Description 01/11/2025 Telephone [facility] [address] [phone] Araceli Mccann PA 12/14/2024 8:45 AM CDT Ancillary Procedure [facility] Cardiology [address] [place] [address] [place] [phone] Status post placement of implantable loop recorder; Cryptogenic stroke ([facility]) 11/02/2024 9:00 AM CDT Ancillary Procedure [facility] Cardiology [address] [place] [address] [place] [phone] Status post placement of implantable loop recorder; [...] kidney disease) stage 3, GFR 30-59 ml/min ([facility]) CVA (cerebral vascular accident) ([facility]) small, no residual. two mini strokes. At high risk for falls dizziness Status post placement of imp lantable loop recorder Cardiomyopathy PAD (peripheral artery disease) CAD (coronary artery disease) CA (myocardial infarction) ([facility]) x2. 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 Gender Identity Not on file Sexual Orientation Not on file Obstetrics History Last Filed Vital Signs Vital Sign Reading Time Taken Comments Blood Pressure 130/62 05/06/2024 10:39 AM IOS PROGRAMMER Pulse 52 05/06/2024 10:39 AM IOS PROGRAMMER Temperature 36.3 C (97.3 F) 08/29/2023 10:05 AM CDT Respiratory Rate 16 08/29/2023 10:35 AM CDT Oxygen Saturation 97% 05/06/2024 10:39 AM IOS PROGRAMMER Inhaled Oxygen Concentration - - Weight 92.5 kg (204 lb) 05/06/2024 10:39 AM IOS PROGRAMMER Height 182.9 cm (6') 05/06/2024 10:39 AM IOS PROGRAMMER Body Mass Index 27.67 05/06/2024 10:39 AM IOS PROGRAMMER Plan of Treatment Health Maintenance Due Date [...] history exists Medical Devices Implanted Type Area Counter Cutter Device Identifier Shelf Expiration Date Model / Serial / Lot Kin[employer] Susan [id number] Synergy 3.5mm 38mm 144cm Radiopaque 1 Access Port Inflation Lumen - [id number] - [id number] Implanted:Qty: 1 on 12/13/2020 by Delbert Crandall MD at [facility] Stent [employer] Susan 04/20/2022 [id number] / [id number] / [id number] [employer] Cardiovascular Loop [id number] Hemashield [employer] [place] 10mm 30cm Woven Smooth Needle Passage Suture - [id number] - [id number] Implanted:Qty: 1 on 10/28/2019 by Zaid Valencia MD at [facility] Right: Axilla [employer] 02/28/2022 [id number] / [id number] / [id number] [employer] Susan [id number] Synergy 3mm 38mm 144cm Radiopaque 1 Access Port Inflation Lumen - [id number] Implanted:Qty: 1 on 10/29/2019 by Garrick Estrella MD at [facility] [employer] Susan [id number] / / Kin[employer] Susan [id number] Synergy 3mm 32mm 144cm Radiopaque 1 Access Port Inflation Lumen - [id number] Implanted:Qty: 1 on 10/29/2019 by Garrick Estrella MD at [facility] Scientific Susan [id number] / / [employer] Susan [id number] Synergy 2.25mm 20mm 144cm Radiopaque 1 Access Port Inflation - [id number] Implanted:Qty: 1 on 10/29/2019 by Garrick Estrella MD at [facility] Scientific [facility] [id number] / / Medtronic Inc [id number] Resolute [place] 2mm 15mm 140cm Rapid Exchange Delivery System - [id number] Implanted:Qty: 1 on 10/29/2019 by Garrick Estrella MD at [facility] Med[employer] Inc [id number] / / [employer] [id number] Perclose 6fr Suture Mediate Knot Push Vascular Device Closure - [id number] - [id number] Implanted:Qty: 1 on 12/13/2020 by Delbert Crandall MD at [facility] [employer] 09/28/2022 [id number] / [id number] / [id number] Description:Left femoral art jones [employer] Susan/[employer] [id number] Angio-Seal Vip Bondek-Plus 8fr .038in 70cm Hemostatic Latex Free - [id number] - [id number] Implanted:Qty: 1 on 12/13/2020 by Delbert Crandall MD at [facility] [employer] Susan 09/28/2021 [id number] / [id number] / [id number] 2 Description:RFA Explanted Type Area Counter Cutter Device Identifier Shelf Expiration Date Model / Serial / Lot Abiomed Inc 5062 Pump Iab Impella 5l/Min Cath Microaxial - [id number] - [id number] Implanted:Qty: 1 on 10/28/2019 by Zaid Valencia MD at [facility] Explanted:Qty: 1 on 11/01/2019 by Zaid Valencia MD at [facility] Right: Axilla [employer] 12/29/2020 [id number] / [id number] / Description:To be explanted at a later [...] 8 AM CDT Coronary artery disease involving [place] coronary artery of [place] heart without angina pectoris from Last 3 Months or Most Recently Relevant to Health Maintenance Results * DEVICE CHECK - REMOTE (12/15/2024 12:06 PM CDT) Anatomical Region Laterality Modality Other Narrative 01/07/2025 3:06 PM CDT LaunchSidetronic LNQ22 Loop Recorder. Dx; Cryptogenic Stroke. DOI [...] Modality Other Narrative 11/24/2024 12:30 PM CDT Parents R People LNQ22 Loop Recorder. Dx; Cryptogenic Stroke. DOI 07/30/2022-[place]. Carelink remote monitoring. Routine ILR remote. Normal [...] ORDERABLES Final Re sult Performing Organization Address [facility] de Phone Number [address] [address] * (ABNORMAL) Hemoglobin A1c (08/19/2023 12:40 PM CDT) Hgb A1C 7.5(H) 4.0 - 5.6 % Estimated Average Glucose 169 mg/dL [facility] Comment: The ADA recommends reporting an estimated Average Glucose (eAG) with all Hemoglobin A1c results using the equation derived from a study of 507 normal and diabetic adults. Minority populations were underrepresented and children were not included. (Diabetes Care 31:5988-1037, 2008). The eAG is not equivalent to a fasting glucose. Blood 08/19/2023 12:4 0 PM CDT 08/19/2023 1:15 PM CDT Pancho Russell MD LAB BLOOD ORDERABLES Final Re sult Performing Organization Address [facility] de Phone Number [address] [address] * POCT lipid panel (07/05/2022 11:58 AM [...] Most Recently Relevant to Health Maintenance Insurance [facility] ADVANTAGE CHOICE [place] [address] [place] [address] MEDICARE BLUE ACCESS [place] [employer] ADVANTAGE CHOICE PPO Advance Directives For more information, please contact: [phone] * Full Code (Latest Code Status on File) Date Activated Date Inactivated Comments 12/13/2020 1:06 AM 12/19/2020 8:55 PM * Full Code Date Activated Date Inactivated Comments 10/27/2019 2:49 PM 11/12/2019 7:38 PM * Full Code Date Activated Date Inactivated Comments 10/27/2019 2:49 PM 10/27/2019 2:49 PM Care Teams Escrow Manager Relationship Specialty Start Date End Date Aggie Martinez MD PCP - General Family Medicine 04/19/21 Delbert Crandall MD Referring Physician Cardiovascular Disease 12/19/20
--- OUTSIDE RECORDS SUMMARY | 2025-01-14 18:07 | XMS_ITS | Clinical Summary ---
Author Organization [facility] Facility Address [address] [place] [address] Care Team Providers Care Refresh Technician Name Role Phone Unavailable Primary Care Provider [...] Description 12/08/2024 10:45 AM CDT Office [facility] [place] [facility] [address] [facility] [address] [place] [address] Iban Rosas MD Chronic kidney disease stage 4 (HCC) (Primary Dx); Essential hypertension; Type 2 diabetes mellitus, not otherwise specified (HCC); Coronary arteriosclerosis, not otherwise specified; Mixed hyperlipidemia; History of cardiomyopathy; Systolic heart failure, not otherwise specified (HCC); Vitamin D deficiency, not otherwise specified; Benign prostatic hyperplasia 12/03/2024 Orders Only [place] [address] [place] [phone] Iban Rosas MD 11/26/2024 Refill [place] [facility], [facility] [address] [facility] [address] [place] [address] Iban Rosas MD from Last [...] st Contact Info) Description 04/13/2025 10:30 AM COUNTER WAITRESS/WAITER Office Visit [facility], [facility] [address] [facility] [address] [place] [address] Iban Rosas MD [address] [place] [phone] Health Maintenance Due Date Last Done Comments [...] (12/03/2024 9:46 AM CDT) Culture Result, Urine [facility] Comment:NO CULTURE INDICATED 12/03/2024 9:46 AM CDT 12/03/2024 9:51 AM CDT Narrative Resulting Agency Comment Performing Organization Information: Site ID: [place] Name: [facility] Address: [facility] [place] [address] Director: John Yeh us Iban Rosas MD LAB [id number] NSOLICITED RESULTS Final Result MOH[facility]UD [facility] [address] [place] [address] * (ABNORMAL) Urinalysis, Complete w/reflex to Culture (12/03/2024 9:46 AM CDT) Color, Urine YELLOW YELLOW [facility] Appearance Urine CLEAR CLEAR [facility] Specific [place], UA 1.023 1.001 - 1.035 [facility] pH Urine < OR = 5.0(A) 5.0 - 8.0 [facility] Glucose, Ur 3+(A) NEGATIVE [facility] Bilirubin, Urine NEGATIVE NEGATIVE [facility] Ketones, Urine NEGATIVE NEGATIVE [facility] Hemoglobin Ur Ql Strip NEGATIVE NEGATIVE [facility] Protein, Ur 2+(A) NEGATIVE [facility] Nitrite, Urine NEGATIVE NEGATIVE [facility] WBC Esterase Urine NEGATIVE NEGATIVE [facility] WBC, Urine 0-5 < OR = 5 /HPF [facility] RBC, Urine NONE SEEN < OR = 2 /HPF [facility] Epithelial Cells in Urine 0-5 < OR = 5 /HPF [facility] Trans Epithelial, Urine CANCELED < OR = 5 /HPF [facility] Comment:Result canceled by t he ancillary. Renal Epithelial Cells, Urine CANCELED < OR = 3 /HPF [facility] Comment:Result canceled by t he ancillary. Bacteria NONE SEEN NONE SEEN /HPF [facility] Calcium Oxalate Crystals, Urine CANCELED NONE OR FEW /HPF [facility] Comment:Result canceled by t he ancillary. Triple Phosphate Crystals, Urine CANCELED NONE OR FEW /HPF [facility] Comment:Result canceled by t he ancillary. Uric Acid Crystals, Urine CANCELED NONE OR FEW /HPF [facility] Comment:Result canceled by t he ancillary. Amorphous Sediments CANCELED NONE OR FEW /HPF [facility] Comment:Result canceled by t he ancillary. Crystals CANCELED NONE SEEN /HPF [facility] Comment:Result canceled by t he ancillary. Hyaline Casts, Urine NONE SEEN NONE SEEN /LPF [facility] Granular Casts, Urine CANCELED NONE SEEN /LPF [facility] Comment:Result canceled by t he ancillary. Casts CANCELED NONE SEEN /LPF [facility] Comment:Result canceled by t he ancillary. Yeast, UA CANCELED NONE SEEN /HPF [facility] Comment:Result canceled by t he ancillary. Note: [facility] Comment: This urine was analyzed for the presence of WBC, RBC, bacteria, casts, and other formed elements. Only those elements seen were reported. 12/03/2024 9:46 AM CDT 12/03/2024 9:51 AM CDT Narrative Resulting Agency Comment Performing Organization Information: Site ID: [place] Name: [facility] Address: [address] [place] [address] Director: John Yeh Iban Rosas MD LAB URINE ORDERABLES Final R esult [facility] [address] [place] [address] * (ABNORMAL) PTH, Intact and Calcium (12/03/2024 [...] Performing Organization Information: Site ID: [place] Name: [facility] Address: [address] [place] [address] Director: John Yeh MD Iban Rosas MD LAB BLOOD ORDERABLES Final R [facility] [address] [facility] [address] [place] [address] * (ABNORMAL) Protein, Total, Random Urine w/Creatinine (Protein/Creat Ratio) (12/03/2024 9:46 AM CDT) Creatinine, Ur 142 20 - 320 mg/dL [facility] Urine Protein/Creati nine Ratio 810(H) 25 - 148 mg/g creat [facility] [place] Protein/Creati nine Ratio, Urine 0.810(H) 0.025 - 0.148 mg/mg creat [facility] [place] Protein Urine Random 115(H) 5 - 25 mg/dL [facility] 12/03/2024 9:46 AM CDT 12/03/2024 9:51 AM CDT Narrative Resulting Agency Comment Performing Organization Information: Site ID: Name: [facility] Address: [address] [place] [address] Director: John Yeh Iban Rosas MD LAB URINE ORDERABLES Final R [facility] Performing Organization Address [facility] Co de Phone Number [facility] [address] [place] [address] * Vitamin D 25 Hydroxy (12/03/2024 9:46 AM CDT) Vitamin D, 25-OH, Total, IA 46 30 - 100 ng/mL [facility] Comment: Vitamin D Status 25-OH Vitamin D: Deficiency: <20 ng/mL Insufficiency: 20 - 29 ng/mL Optimal: > or = 30 ng/mL For 25-OH Vitamin D testing on patients on D2-supplementation and patients for whom quantitation of D2 and D3 fractions is required, the QuestAssureD(TM) 25-OH VIT D, (D2,D3), LC/MS/MS is recommended: order code 77858 (patients >2yrs). See Note 1 Note 1 For additional information, please refer to http://education.Sava [employer]/faq/JHX059 (This link is being provided for informational/ educational purposes only.) 12/03/2024 9:46 AM CDT 12/03/2024 9:51 AM CDT Narrative Resulting Agency Comment Performing Organization Information: Site ID: [place] Name: [facility] Address: [address] [facility] [place] [address] Director: John Yeh MD us Iban Rosas MD LAB BLOOD ORDERABLES Final R esult MOHAMUD Ortega [address] [place] [address] [place] [address] * (ABNORMAL) CBC and Differential (12/03/2024 9:46 AM CDT) WBC 7.1 3.8 - 10.8 Thousand/ uL [facility] [place] RBC 4.88 4.20 - 5.80 [...] Performing Organization Information: Site ID: [place] Name: [facility] Address: [address] [place] [address] Director: John Yeh Iban Rosas MD LAB BLOOD ORDERABLES Final R esult Performing Organization Address [facility] de Phone Number [facility] [place] [address] [place] [address] * (ABNORMAL) Phosphorus (12/03/2024 9:46 AM CDT) Phosphorus 4.6(H) 2.1 - 4.3 mg/dL [facility] 12/03/2024 9:46 AM CDT 12/03/2024 9:51 AM CDT Narrative Resulting Agency Comment Performing Organization Information: Site ID: Name: [facility] Address: [address] [place] [address] Director: John Yeh Iban Rosas MD LAB BLOOD ORDERABLES Final R esult Performing Organization Address [facility] de Phone Number [facility] [place] [address] [place] [address] * (ABNORMAL) Hemoglobin A1c (12/03/2024 9:46 AM CDT) Hemoglobin A1C 6.4(H) <5.7 % of total Hgb [facility] Comment: For someone without known diabetes, a [...] Organization Information: Site ID: [place] Name: [facility] Address: [address] [place] [address] Director: John Yeh Iban Rosas MD LAB BLOOD ORDERABLES Final R esult MOHAMUD SMITH [facility] [address] [place] [place] [address] * (ABNORMAL) Lipid panel (12/03/2024 9:46 AM CDT) [facility] Cholesterol 128 <200 mg/dL [facility] nick [facility] HDL 37(L) > OR = 40 mg/dL [facility] [place] Triglycerides 148 <150 mg/dL [facility] nick [place] LDL Direct 68 mg/dL (calc) [facility]ud [facility] Comment: Reference range: <100 Desirable range <100 mg/dL for primary prevention; <70 mg/dL for patients with CHD or diabetic patients with > or = 2 CHD risk factors. LDL-C is now calculated using the Dennis-Daniel calculation, which is a validated novel method providing better accuracy than the Friedewald equation in the estimation of LDL-C. Dennis SS et al. FERNIE. 2013;310(19): 3356-6628 (http://education.Sava [employer]/faq/AJZ951) Chol/HDL Ratio 3.5 <5.0 (calc) Mohamud Style[facility]eder[facility]co Antonio Allen Non HDL Cholesterol 91 <130 mg/dL (calc) [facility] Comment: For patients with diabetes plus 1 major ASCVD risk factor, treating to a non-HDL-C goal of <100 mg/dL (LDL-C of <70 mg/dL) is considered a therapeutic option. 12/03/2024 9:46 AM CDT 12/03/2024 9:51 AM CDT Narrative Resulting Agency Comment Performing Organization Information: Site ID: [place] Name: [facility] Address: [address] [address] Director: John Yeh us Iban Rosas MD LAB BLOOD ORDERABLES Final R esult [facility]UD [facility] [address] [place] [address] * (ABNORMAL) Comprehensive Metabolic Panel (12/03/2024 9:46 [...] Site ID: [place] Name: [facility]ud Ortega Address: [address] [address] Director: John Yeh MD us Iban Rosas MD LAB BLOOD ORDERABLES Final R esult MOH[facility]UD [place] [address] [address] from Last 3 Months Insurance
[2025-01-14 18:38] LABS: Add Urine Microscopic? YES; Appearance Urine Clear (Clear); Glucose Urine UA 3+ mg/dL (Negative); Leukocyte Esterase Ur Negative LEU/UL (Negative); Nitrate Urine Negative (Negative); Non Pathogenic Casts 0-2; Specific Grav Ur 1.023 (1.001-1.035)
--- NOTE | 2025-01-14 19:57 | PM.IMHP ---
H&P: HPI History of Present Illness Date/Time: 01/14/25 19:57 Chief Complaint: Left leg weakness-dragging left leg. Narrative: This is a 69-year-old male patient who has a past medical history of TIAs and CVAs. He is legally blind. The patient stated that he has had weakness to his left upper arm and left lower extremity since he woke up with this on Saturday morning. He denies any injury. Head CT was read as no acute intracranial abnormality. Chest x-ray was read as mild cardiomegaly. Medial stye no and hilar contours are within normal limits. No acute cardiopulmonary disease. Head and neck CTA was read as no hemodynamically significant stenosis is noted the cervical and intracranial arterial vasculature. Multiple left thyroid lobe nodules measuring up to 2 cm follow-up ultrasound is recommended. BUN is 38 creatinine 2.4. Patient's creatinine baseline is anywhere from 1.9 to 2.24. His BUN baseline is in the 30s to 46. His blood sugar was noted to be 203 and repeat was 170. He has 2+ protein in his urine as well as 3+ glucose. Toxicology screen was negative. Patient is being admitted to observation status on the date of service of 01/14/2025 Review of Systems Constitutional: Constitutional: Reports as per HPI and Reports no additional constitutional complaints Eyes: Eyes: Reports as per HPI and Reports no additional eye complaints ENT: Reports no additional ear, nose, mouth, and throat complaints and Reports Normal hearing present Cardiovascular: Cardiovascular: Reports no additional cardiovascular complaints Respiratory: Respiratory: Reports as per HPI and Reports no additional respiratory complaints Gastrointestinal: Gastrointestinal: Reports as per HPI and Reports no additional gastrointestinal complaints Musculoskeletal: Musculoskeletal: Reports no additional musculoskeletal complaints Integumentary/Breasts: Skin/Breast: Reports system reviewed and no additional complaints, except as docu Neurologic: Reports no additional neurologic complaints and Reports Normal hearing present Psychiatric: Psychiatric: Reports no additional psychiatric complaints and Reports as per HPI Hematologic/Lymphatic: Hematologic/Lymphatic: Reports no additional hematologic/lymphatic complaints Allergic/Immunologic: Allergic/Immunologic: Reports no additional allergic/immunologic complaints [facility] Past Medical History Medical History (Updated 01/17/25 @ 14:45 by Lesly Madison, FELIPE) Diabetic neuropathy Implantable loop recorder present Peripheral vascular disease CVA (cerebral vascular accident) CAD (coronary artery disease) DM2 (diabetes mellitus, type 2) Blind Both eyes Heart attack (~09/2019) Cardiogenic shock Chronic kidney disease, stage 3 Herpes simplex Hypertriglyceridemia COPD (chronic obstructive pulmonary disease) BPH (benign prostatic hyperplasia) Peripheral neuropathy Erectile dysfunction Low testosterone Chronic pain Hyperlipidemia Hypertension Trigger finger Surgical History Surgical History (Updated 01/14/25 @ 20:04 by Bethanie Carmona APRN) Status post trigger finger release H/O hand surgery Left hand History of coronary artery stent placement Four cardiac stents [facility] via thoracotomy one at [facility] H/O skin graft of the right thigh as a child History of knee surgery Family History Family History Grandparent Diabetes mellitus Mother Tuberculosis Dementia Father Dementia Hx of CABG in his early 60s Social History Social History (Updated 01/15/25 @ 05:22 by Bethanie Carmona APRN) Social History: He is . The patient has 2 biologic biological children and his has 1 adopted child. Code status: Full code Primary care physician: Dr. Martinez Code status: Full code Smoking status: Former smoker Tobacco type: cigarettes Second hand tobacco smoke exposure: Yes (first ) Smoking end date: 04/01/74 Alcohol intake: former Drinks per week: 42 Substance use: never Substance use type: does not use Lack of Transportation: No Lack of Food: Never True Current Housing: I Have Housing Concerned About Future Housing: No Difficulty Paying Gas/Electric Bills: No Difficulty Paying for Meds: No Currently Unemployed: No Education: Associate Degree Difficulty w/ Childcare or Family Care: No Living arrangements: with family Additional living arrangements comments: he lives with his and children. Occupation/Education: retired Additional occupation/education comments: Patient is disabled due to complications of diabetes. Gender identity (if verbalized by the patient): Male Spiritual care concerns: No Agree to blood products: Yes Meds Home Medications and Allergies Home Medications ?Medication ?Instructions ?Recorded ?Confirmed ?Type aspirin 81 mg tablet,delayed 81 mg PO DAILY 05/25/19 01/15/25 History release (Adult Low Dose Aspirin) carvedilol 6.25 mg tablet 3.125 mg PO BID 08/18/20 01/15/25 History clopidogrel 75 mg tablet 75 mg PO DAILY 08/18/20 01/15/25 History sacubitril 24 mg-valsartan 26 mg 1 tablet PO BID 03/09/22 01/15/25 History tablet (Entresto) cholecalciferol (vitamin D3) 50 50 mcg PO DAILY 07/27/22 01/15/25 History mcg (2,000 unit) tablet blood-glucose,home child care provider,cont #6 ea 03/24/24 10/01/24 Rx (Dexcom G7 Tin Dipper) insulin glargine-yfgn 100 unit/mL 40 unit (0.4 mL) subcut BID 90 03/24/24 01/15/25 Rx (3 mL) subcutaneous pen ( #72 mL (insulin glargine-yfgn) Pen) blood-glucose sensor (Dexcom G7 #6 ea 05/22/24 01/15/25 Rx Sensor device) montelukast 10 mg tablet 10 mg PO DAILY #90 tabs 05/25/24 01/15/25 Rx pen needle, diabetic 31 gauge x #500 ea 05/26/24 10/01/24 Rx 5/16 (BD Ultra-Fine Short Pen Needle) finasteride 5 mg tablet 5 mg PO DAILY #90 tabs 08/18/24 01/15/25 Rx fluoxetine 40 mg capsule 40 mg PO DAILY #90 caps 08/18/24 01/15/25 Rx rosuvastatin 40 mg tablet 40 mg PO DAILY #90 tabs 12/04/24 01/15/25 Rx dapagliflozin propanediol 5 mg 5 mg PO DAILY 01/15/25 01/15/25 History tablet (Farxiga) insulin lispro 100 unit/mL See Rx Instructions subcut .COMPLEX 01/15/25 01/15/25 History subcutaneous pen (Humalog KwikPen (U-100) Insulin) omeprazole 20 mg-sodium 1 cap PO DAILY 01/15/25 01/15/25 History bicarbonate 1.1 gram capsule (Zegerid OTC) pregabalin 100 mg capsule (Lyrica) 100 mg PO QAM 01/15/25 01/15/25 History pregabalin 200 mg capsule 200 mg PO HS 01/15/25 01/15/25 History trazodone 50 mg tablet 50 mg PO QHS #30 tabs 01/25/25 Rx Allergies Allergy/AdvReac Type Severity Reaction Status Date / Time fluorescein AdvReac Nausea and Verified 01/15/25 09:20 Vomiting Vital Signs Vital Signs - 24 hr 01/14/25 13:19 01/14/25 17:28 01/14/25 17:32 Temperature 98.5 F Pulse Rate 65 60 59 L Respiratory Rate 17 20 20 Blood Pressure 145/57 H 179/51 H Pulse Oximetry 96 99 98 Oxygen Delivery Room Air Room Air 01/14/25 18:12 01/14/25 18:16 01/14/25 18:31 Temperature Pulse Rate 67 73 60 Respiratory Rate 13 20 16 Blood Pressure Pulse Oximetry 97 Oxygen Delivery 01/14/25 18:45 01/14/25 19:17 01/14/25 19:31 Temperature Pulse Rate 59 L 55 L 53 L Respiratory Rate 16 18 15 Blood Pressure 178/59 H 166/65 H Pulse Oximetry 99 99 97 Oxygen Delivery Exam Const: General: cooperative, healthy appearing, comfortable, no acute distress, well developed, awake, Physically active, average body habitus and well nourished Nutritional Appearance: average body habitus and well nourished Orientation/consciousness: oriented to person, oriented to place, oriented to time and patient oriented x3 Limitations: no limitations HENMT: Head: normal to inspection, No palpable skull fracture present, normocephalic, atraumatic and abrasion Eyes: General: appearance normal, both eyes and all related structures Alignment and Position: alignment normal Periorbital: periorbital findings normal Eyelids: eyelids normal Other: Patient is wearing sunglasses at this time as he is legally blind. Pupils were not assessed at this time. Neck: Neck: normal visual inspection and full ROM Chest: Chest palpation & inspection: normal inspection of the chest Resp: Effort & Inspection: normal respiratory effort Auscultation: clear to auscultation bilaterally Cardio: Palpation: normal PMI Rate: regular rate Rhythm: regular rhythm Heart sounds: S1 normal heart sound present and S2 normal heart sound present Peripheral pulses: Peripheral pulses 2+ throughout GI: Inspection: normal to inspection Percussion: Yes normal to percussion Auscultation: normal bowel sounds Rectal Exam: deferred : General: Yes no CVA tenderness Back/Spine/Pelvis: Back: no CVA tenderness Cervical Spine: cervical ROM normal Skin: General skin exam: normal color Lesions: no lesions Rashes: no rashes Trauma: no lacerations or abrasions Wounds: no wounds Hair: normal Nails: normal Neuro: General: oriented to person, oriented to place, oriented to time and patient oriented x3 Other: The patient is able to do finger to nose even though he is blind. He is able to do this bilaterally however he is a little bit delayed on the left side Extrem: General: normal to inspection Right upper extremity: normal to inspection and shoulder/upper arm Left upper extremity: normal to inspection and shoulder/upper arm Right lower extremity: normal to inspection Left lower extremity: normal to inspection Psych: Appearance: grossly normal Mental Status: mental status grossly normal Speech and movement: Normal speech and movement present Affect: normal affect Attitude: cooperative Thought process: Normal thought process present Thought content: Yes Normal thought content present Insight: Good insight present (Psych) Judgement: Good judgement present (Psych) H&P: Results Labs Labs: Short CBC 01/14/25 Range/Units 17:12 WBC 7.0 (4.5-10.0) K/mm3 Hgb 13.4 L (14.0-18.0) g/dL Hct 42.3 (42.0-52.0) % Plt Count 117 L (150-375) k/mm3 BMP 01/14/25 17:12 Sodium 141 Potassium 4.8 Chloride 109 H Carbon Dioxide 25 BUN 38 H Creatinine 2.41 H Glucose 203 H Calcium 8.8 Cardiac Enzymes 01/14/25 Range/Units 17:12 Troponin I < 0.012 (0.000-0.034) ng/mL Liver Function 01/14/25 Range/Units 17:12 Total Bilirubin 0.3 (0.2-1.3) mg/dL AST 20 (17-59) U/L ALT 16 (6-50) U/L Alkaline Phosphatase 62 (38-126) U/L Albumin 3.9 (3.5-5.1) g/dL Urine 01/14/25 Range/Units 18:21 Urine Color Yellow (Yellow) Urine Appearance Clear (Clear) Urine pH 5.5 (5.0-9.0) Ur Specific [place] 1.023 (1.001-1.035) Urine Protein 2+ H (Negative) mg/dL Urine Glucose (UA) 3+ H (Negative) mg/dL Imaging CT scan - head: Radiologist's impression: Impressions Head CT 01/14/25 15:16 Impression: 1.No acute intracranial abnormality. Chest X-Ray 01/14/25 15:24 Impression: No acute cardiopulmonary abnormality. Head/Neck CTA 01/14/25 18:25 IMPRESSION: No hemodynamically significant stenosis is noted of the cervical and intracranial arterial vasculature. Multiple left thyroid lobe nodules measuring up to 2 cm. Follow-up ultrasound is recommended. Assessment and Plan Assessment and plan (1) Left arm weakness: Code(s): R29.898 - Other symptoms and signs involving the musculoskeletal system Status: Acute Assessment and Plan: -he also has left lower extremity weakness. He is able to move all extremities however [id number] on the left side is slightly delayed compared to the right. However the patient has started with the symptoms when he woke up on Saturday. He has had TIAs in the past and is currently on Plavix and aspirin so I will resume that as well. -he is legally blind and therefore pupils were not assessed at this time. Is able to move all extremities and hold a full conversation. He has equal pedal pushes. He can lift his legs off the table bilaterally no focal weakness is noted to lower extremities. Hand area safety manager are equal bilaterally. The patient does has the delayed response with the [id number] on the left side. -neurology has been consulted. -continue with aspirin and Plavix. Continue with rosuvastatin as well -PT OT evaluation greatly be appreciated. -MRIs has been ordered. -CTA Of head and neck No hemodynamically significant stenosis is noted of the cervical and intracranial arterial vasculature. Multiple left thyroid lobe nodules measuring up to 2 cm. Follow-up ultrasound is recommended -thyroid ultrasound has been ordered as suggested. (2) Chronic kidney disease, stage 3: Qualifiers: Chronic kidney disease stage 3 subtype: stage 3a (GFR 45-59) Qualified Code(s): N18.31 - Chronic kidney disease, stage 3a Code(s): N18.3 - Chronic kidney disease, stage 3 (moderate) Status: Acute Assessment and Plan: His creatinine is 2.41 with a previous read of now 1.9 on 10/14/2021. BUN is 38 with a previous value of 35 on 03/19/2022 -the patient is on Entresto which could further worsen his renal function. -avoid nephrotoxic medication. -if condition worsens may consider consult with Nephrology. -may consider renal ultrasound. 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 -his point of care glucose is 170. (4) COPD (chronic obstructive pulmonary disease): Code(s): J44.9 - Chronic obstructive pulmonary disease, unspecified Status: Acute Assessment and Plan: -continue with home medications. -continue with Singulair once home medications have been reconciled. (5) BPH (benign prostatic hyperplasia): Qualifiers: Lower urinary tract symptom presence: unspecified whether lower urinary tract symptoms present Qualified Code(s): N40.0 - Benign prostatic hyperplasia without lower urinary tract symptoms Code(s): N40.0 - Benign prostatic hyperplasia without lower urinary tract symptoms Status: Acute Assessment and Plan: -waiting medication reconciliation continue his finasteride as per home med list. (6) Blind: Code(s): H54.7 - Unspecified visual loss Status: Chronic (7) CHF (congestive heart failure): Qualifiers: Heart failure chronicity: acute on chronic Heart failure type: unspecified Qualified Code(s): I50.9 - Heart failure, unspecified Code(s): I50.9 - Heart failure, unspecified Status: Acute Assessment and Plan: -last echo noted was at outside facility 12/25/2022 and the patient had an EF of 45-50%. May consider an echo if not performed in the last 6 months. -resume Entresto if renal function is stable. -awaiting home medications to be reconciled -continue with Coreg once his medications have been reconciled. His blood pressure is 187/138 this morning (8) Hyperlipidemia: Qualifiers: Hyperlipidemia type: mixed hyperlipidemia Qualified Code(s): E78.2 - Mixed hyperlipidemia Code(s): E78.5 - Hyperlipidemia, unspecified Status: Acute Assessment and Plan: -continue with rosuvastatin and monitor liver enzymes (9) Hypertension: Qualifiers: Hypertension type: essential hypertension Qualified Code(s): I10 - Essential (primary) hypertension Code(s): I10 - Essential (primary) hypertension Status: Acute Assessment and Plan: -continue with Coreg once medications have been reconciled. -p.r.n. hydralazine Quality VTE Prophylaxis VTE prophylaxis: mechanical ordered
[2025-01-14 21:22] LABS: Cannabinoid Screen Urine Negative (Negative)
[2025-01-15] VITALS (28 sets, daily range): BP systolic 149–193; BP diastolic 58–138; PULSE 50–89; RESP 8–20; TEMP 35.8–36.6; O2SAT 95–100; BMI 28.2
--- NOTE | 2025-01-15 | ECHO_ITS ---
Patient Info Name: David Álvarez Age: 69 years : 1955 Gender: Male Ht: 72 in Wt: 214 lbs BSA: 2.24 m2 HR: 50 bpm BP: 179 / 61 mmHg Technical Quality: Good Exam Date: 01/15/2025 9:45 AM Patient Status: I Admit Date: 01/16/2025 Exam Type: CA echo doppler color flow Complete two-dimensional, color flow and Doppler transthoracic echocardiogram is performed. Staff Referring Physician: Bethanie Carmona NP Meat And Poultry Inspector: Shruthi Fountain Attending Provider: Kan Landaverde Summary 1. Complete two-dimensional, color flow and Doppler transthoracic echocardiogram is performed. 2. Technically difficult study, suboptimal image quality. Normal LV size, mild LVH. Normal LV systolic function, ejection fraction about 55-60%. Normal diastolic function. Normal RV size and systolic function. Mild left atrial enlargement. Normal mitral valve structure, mild mitral regurgitation. Aortic valve is not well visualized, appears mildly sclerotic, no hemodynamically significant stenosis by Doppler. Mild aortic regurgitation. Trace TR, unable to assess RVSP due to inadequate required chair jet. Mild pulmonary regurgitation. Mild aortic root calcification. Trivial pericardial effusion. Left Ventricular Outflow Tract Name Value Normal LVOT 2D LVOT Diameter 2.1 cm LVOT Doppler LVOT Peak Velocity 112 cm/s LVOT Peak Gradient 5 mmHg LVOT Mean Gradient 2 mmHg LVOT VTI 30 cm LVOT Stroke Volume 107 ml LVOT CO 5.2 l/min LVOT CI 2.3 l/min/m2 Pulmonic Valve Name Value Normal RVOT Doppler RVOT Peak Velocity 59 cm/s RVOT Peak Gradient 1 mmHg PV Doppler PV Peak Velocity 76 cm/s PV Peak Gradient 2 mmHg Mitral Valve Name Value Normal MV Diastolic Function MV E Peak Velocity 71 cm/s MV A Peak Velocity 63 cm/s MV E/A 1.1 MV Decel Time (PW) 214 ms MV Annular TDI MV E/e' (Septal) 13.7 MV E/e' (Lateral) 9.6 MV E/e' (Average) 11.6 Aortic Valve Name Value Normal AV Doppler AV Peak Velocity 137 cm/s AV Peak Gradient 7 mmHg AV Area (Cont Eq Zach) 3.0 cm2 AV DI (Zach) 0.82 AV Regurgitation 2D LVOT Area 3.6 cm2 Ventricles Name Value Normal LV Dimensions 2D/MM IVS Diastolic Thickness (2D) 1.0 cm 0.6-1.0 LVID Diastole (2D) 4.3 cm 4.2-5.8 LVIW Diastolic Thickness (2D) 1.1 cm 0.6-1.0 LVID Systole (2D) 3.1 cm 2.5-4.0 LVOT Diameter 2.1 cm LV Mass (2D Cubed) 149.93 g 88.00-224.00 LV Mass Index (2D Cubed) 67 g/m2 49-115 Relative Wall Thickness (2D) 0.50 <=0.42 LV Fractional Shortening/Ejection Fraction 2D/MM LV Fractional Shortening (2D) 28 % 25-43 LV EF (2D Teichholz) 55 % LV Diastolic Volume (4C MOD) 131 ml LV EF (4C MOD) 62 % LV Diastolic Volume (2C MOD) 131 ml LV EF (2C MOD) 52 % LV Diastolic Volume (BP MOD) 131 ml 62-150 LV Diastolic Volume Index (BP MOD) 58 ml/m2 34-74 LV Systolic Volume (BP MOD) 59 ml 21-61 LV Systolic Volume Index (BP MOD) 26 ml/m2 11-31 LV EF (BP MOD) 55 % 52-72 LV Diastolic Length (4C) 9.0 cm LV Systolic Length (4C) 7.5 cm LV Stroke Volume (4C MOD) 81 ml Atria Name Value Normal LA Dimensions LA Volume (4C A-L) 52 ml RA Dimensions RA Systolic [place] Length (4C) 5.5 cm 2.1-2.7 RA Area (4C) 14.4 cm2 <=18.0 Report Signatures
[2025-01-15 06:16] LABS: Hematocrit 40.7 % (42.0-52.0); Hemoglobin 13.0 g/dL (14.0-18.0); Immature Granulocyte Percent A 0.4 % (0-0.5); Immature Platelet Fraction Pct 3.0 % (0.9-11.2); Lymphocytes Absolute Auto 1.58 K/mm3 (0.9-3.2); Mean Corpuscular HGB Conc 31.9 g/dl (32-36); Mean Corpuscular Hemoglobin 27.8 pg (26-34); Mean Corpuscular Volume 87.0 fl (80-100); Nucleated Red Blood Cells Absolute Auto 0.000 K/mm3 (0.0-0.012); Nucleated Red Blood Cells Perc 0.0 % (0.0-0.2); Platelet Count Result 105 k/mm3 (150-375); Red Blood Count 4.68 M/mm3 (4.6-6.20); White Blood Count 7.6 K/mm3 (4.5-10.0)
[2025-01-15 06:32] LABS: Anion Gap 6 mmol/L (4-12); Blood Urea Nitrogen 33 mg/dL (9-20); Calcium 8.8 mg/dL (8.4-10.2); Carbon Dioxide 27 mmol/L (22-30); Chloride 107 mmol/L (98-107); Estimated CRCL calculation 32 ml/min; Estimated Glomerular Filt Rate 31; Glucose 95 mg/dL (65-110); Potassium 4.3 mmol/L (3.4-5.0); Sodium 140 mmol/L (137-145)
[2025-01-15 06:36] LABS: Hemoglobin A1C 6.2 % (<5.7)
[2025-01-15 06:57] LABS: Thyroid Stimulating Hormone Reflex 4.190 uIU/mL (0.465-4.68)
--- NOTE | 2025-01-15 07:18 | P.PNIM_ITS ---
Progress Note: A&P Assessment and Plan (1) Left arm weakness: Code(s): R29.898 - Other symptoms and signs involving the musculoskeletal system Status: Acute Assessment and Plan: * Left lower extremity weakness. Able to move all extremities however [id number] on the left side is slightly delayed compared to the right. However the patient has started with the symptoms when he woke up on Saturday. He has had TIAs in the past and is currently on Plavix and aspirin so I will resume that as well. * Legally blind and therefore pupils were not assessed at this time. Able to move all extremities and hold a full conversation. He has equal pedal pushes. He can lift his legs off the table bilaterally no focal weakness is noted to lower extremities. Hand credit front office developer are equal bilaterally. The patient does has th e delayed response with the [id number] on the left side. * continue with Aspirin, Plavix, rosuvastatin * PT/OT evaluation * CT head and neck: No hemodynamically significant stenosis is noted of the cervical and intracranial arterial vasculature. * Multiple left thyroid lobe nodules measuring up to 2 cm. Follow-up ultrasound is recommended * Thyroid US: Left thyroid nodule. Ultrasound-guided fine-needle aspiration is recommended. * 01/15: Neurological exam remains unchanged, delayed finger to nose on L side, however LLE remains strong, no focal weakness in any extremities * Brain MRI pending * Neurology consulted, appreciate further recommendation (2) Chronic kidney disease, stage 3: Qualifiers: Chronic kidney disease stage 3 subtype: stage 3a (GFR 45-59) Qualified Code(s): N18.31 - Chronic kidney disease, stage 3a Code(s): N18.3 - Chronic kidney disease, stage 3 (moderate) Status: Acute Assessment and Plan: His creatinine is 2.41 with a previous read of now 1.9 on 10/14/2021. BUN is 38 with a previous value of 35 on 03/19/2022 * the patient is on Entresto which could further worsen his renal function. * avoid nephrotoxic medication. * if condition worsens may consider consult with Nephrology. * may consider renal ultrasound * 01/15: Cr downtrending. 2.41 ->2.15 (3) Thyroid nodule: Code(s): E04.1 - Nontoxic single thyroid nodule Status: Acute Assessment and Plan: * Head/neck CTA: Multiple left thyroid lobe nodules measuring up to 2 cm. Follow-up ultrasound is recommended. * Thyroid ultrasound: Left thyroid nodule. Ultrasound-guided fine-needle aspiration is recommended. * Will recommend he follow-up will PCP & heme/Onc for possible FNA (4) DM2 (diabetes mellitus, type 2): Qualifiers: Diabetes mellitus complication status: with other specified complication Diabetes mellitus fpc insulin use: with terminal carman use Qualified Code(s): E11.69 - Type 2 diabetes mellitus with other specified complication; Z79.4 - oil heaterman (current) use of insulin Code(s): E11.9 - Type 2 diabetes mellitus without complications Status: Chronic Assessment and Plan: * Accu-Cheks AC and HS with sliding scale insulin * resume home dose with pharmacy to adjust. * 01/15: 131 (5) COPD (chronic obstructive pulmonary disease): Code(s): J44.9 - Chronic obstructive pulmonary disease, unspecified Status: Acute Assessment and Plan: * continue with home medications. * continue with Singulair once home medications have been reconciled. (6) BPH (benign prostatic hyperplasia): Qualifiers: Lower urinary tract symptom presence: unspecified whether lower urinary tract symptoms present Qualified Code(s): N40.0 - Benign prostatic hyperplasia without lower urinary tract symptoms Code(s): N40.0 - Benign prostatic hyperplasia without lower urinary tract symptoms Status: Acute Assessment and Plan: * waiting medication reconciliation continue his finasteride as per home med list. (7) Blind: Code(s): H54.7 - Unspecified visual loss Status: Chronic (8) CHF (congestive heart failure): Qualifiers: Heart failure chronicity: acute on chronic Heart failure type: unspecified Qualified Code(s): I50.9 - Heart failure, unspecified Code(s): I50.9 - Heart failure, unspecified Status: Acute Assessment and Plan: * last echo noted was at outside facility 12/25/2022 and the patient had an EF of 45-50%. May consider an echo if not performed in the last 6 months. * resume Entresto if renal function is stable. * awaiting home medications to be reconciled * continue with Coreg once his medications have been reconciled. His blood pressure is 187/138 this morning (9) Hyperlipidemia: Qualifiers: Hyperlipidemia type: mixed hyperlipidemia Qualified Code(s): E78.2 - Mixed hyperlipidemia Code(s): E78.5 - Hyperlipidemia, unspecified Status: Acute Assessment and Plan: * continue with rosuvastatin and monitor liver enzymes (10) Hypertension: Qualifiers: Hypertension type: essential hypertension Qualified Code(s): I10 - Essential (primary) hypertension Code(s): I10 - Essential (primary) hypertension Status: Acute Assessment and Plan: * continue with Coreg once medications have been reconciled. * p.r.n. hydralazine Subjective Date/time seen: 01/15/25 07:18 Interval history: This is a 69-year-old male patient who has a past medical history of TIAs and CVAs. He is legally blind. The patient stated that he has had weakness to his left upper arm and left lower extremity since he woke up with this on Saturday morning. He denies any injury. 01/15/2025 Patient sitting comfortably in bed at time of exam. Denies any CP, SOB, n/v, abd pain, lower extremity pain/numbness. No lower/upper extremity weakness on exam. However [id number] technique still difficult with left upper extremity. Plan for brain MRI today, neurology consulted - appreciate further recommendations. Thyroid US show L thyroid nodule - will recommend FNA in outpt. Review of Systems Constitutional: Constitutional: Reports as per HPI and Reports no additional constitutional complaints Eyes: Eyes: Reports as per HPI and Reports no additional eye complaints ENT: Reports system reviewed and no additional complaints, except as documented and Reports Normal hearing present Cardiovascular: Cardiovascular: Reports no additional cardiovascular complaints Respiratory: Respiratory: Reports as per HPI and Reports no additional res piratory complaints Gastrointestinal: Gastrointestinal: Reports as per HPI and Reports no additional gastrointestinal complaints Musculoskeletal: Musculoskeletal: Reports no additional musculoskeletal complaints Integumentary/Breasts: Skin/Breast: Reports system reviewed and no additional complaints, except as docu Neurologic: Reports system reviewed and no additional complaints, except as documented and Reports Normal hearing present Psychiatric: Psychiatric: Reports no additional psychiatric complaints and Reports as per HPI Hematologic/Lymphatic: Hematologic/Lymphatic: Reports no additional hematologic/lymphatic complaints Allergic/Immunologic: Allergic/Immunologic: Reports no additional allergic/immunologic complaints Exam Const: General: cooperative, healthy appearing, comfortable, no acute distress, well developed, awake, Physically active, average body habitus and well nourished Nutritional Appearance: average body habitus and well nourished Orientation/consciousness: oriented to person, oriented to place, oriented to time and patient oriented x3 Limitations: no limitations HENMT: Head: normal to inspection, No palpable skull fracture present, normocephalic, atraumatic and abrasion Eyes: General: appearance normal, both eyes and all related structures Alignment and Position: alignment normal Periorbital: periorbital findings normal Eyelids: eyelids normal Other: Patient is wearing sunglasses at this time as he is legally blind. Pupils were not assessed at this time. Neck: Neck: normal visual inspection and full ROM Chest: Chest palpation & inspection: normal inspection of the chest Resp: Effort & Inspection: normal respiratory effort Auscultation: clear to auscultation bilaterally Cardio: Palpation: normal PMI Rate: regular rate Rhythm: regular rhythm Heart sounds: S1 normal heart sound present and S2 normal heart sound present Peripheral pulses: Peripheral pulses 2+ throughout GI: Inspection: normal to inspection Auscultation: normal bowel sounds Rectal Exam: deferred : General: Yes no CVA tenderness Back/Spine/Pelvis: Back: no CVA tenderness Cervical Spine: cervical ROM normal Skin: General skin exam: normal color Lesions: no lesions Rashes: no rashes Trauma: no lacerations or abrasions Wounds: no wounds Hair: normal Nails: normal Neuro: General: oriented to person, oriented to place, oriented to time and patient oriented x3 Cranial nerves: Yes Normal hearing present Other: The patient is able to do finger to nose even though he is blind. He is able to do this bilaterally however he is a little bit delayed on the left side Extrem: General: normal to inspection Right upper extremity: normal to inspection and shoulder/upper arm Left upper extremity: normal to inspection and shoulder/upper arm Right lower extremity: normal to inspection Left lower extremity: normal to inspection Psych: Appearance: grossly normal Mental Status: mental status grossly normal Speech and movement: Normal speech and movement present Affect: n ormal affect Attitude: cooperative Thought process: Normal thought process present Insight: Good insight present (Psych) Judgement: Good judgement present (Psych) Objective Data Vital Signs Vital Signs: Vital Signs - 24 hr 01/14/25 13:19 01/14/25 17:28 01/14/25 17:32 Temperature 98.5 F Pulse Rate 65 60 59 L Respiratory Rate 17 20 20 Blood Pressure 145/57 H 179/51 H Pulse Oximetry 96 99 98 Oxygen Delivery Room Air Room Air 01/14/25 18:12 01/14/25 18:16 01/14/25 18:31 Temperature Pulse Rate 67 73 60 Respiratory Rate 13 20 16 Blood Pressure Pulse Oximetry 97 Oxygen Delivery 01/14/25 18:45 01/14/25 19:17 01/14/25 19:31 Temperature Pulse Rate 59 L 55 L 53 L Respiratory Rate 16 18 15 Blood Pressure 178/59 H 166/65 H Pulse Oximetry 99 99 97 Oxygen Delivery 01/14/25 19:46 01/14/25 20:01 01/14/25 20:31 Temperature Pulse Rate 55 L 57 L 58 L Respiratory Rate 18 15 16 Blood Pressure 182/69 H 185/110 H 186/75 H Pulse Oximetry 100 98 98 Oxygen Delivery 01/14/25 21:00 01/14/25 21:32 01/14/25 22:01 Temperature Pulse Rate 74 51 L 57 L Respiratory Rate 15 13 17 Blood Pressure 192/64 H 166/61 H 167/68 H Pulse Oximetry 97 98 98 Oxygen Delivery 01/14/25 23:01 01/15/25 00:01 01/15/25 01:00 Temperature Pulse Rate 60 56 L 57 L Respiratory Rate 18 14 16 Blood Pressure 172/63 H 168/61 H 177/75 H Pulse Oximetry 96 95 Oxygen Delivery 01/15/25 01:01 01/15/25 01:39 01/15/25 01:50 Temperature Pulse Rate 57 L 54 L Respiratory Rate 16 15 Blood Pressure 177/75 H Pulse Oximetry 95 95 Oxygen Delivery 01/15/25 02:00 01/15/25 03:01 01/15/25 03:31 Temperature Pulse Rate 75 70 Respiratory Rate 15 17 Blood Pressure 164/76 H 157/134 H Pulse Oximetry 95 97 96 Oxygen Delivery 01/15/25 04:01 01/15/25 05:00 01/15/25 05:01 Temperature Pulse Rate 67 50 L 56 L Respiratory Rate 17 16 17 Blood Pressure 187/138 H 179/61 H 177/64 H Pulse Oximetry 98 96 96 Oxygen Delivery 01/15/25 05:31 01/15/25 06:01 01/15/25 06:31 Temperature Pulse Rate 58 L 59 L 50 L Respiratory Rate 19 13 17 Blood Pressure 180/61 H 179/89 H 179/61 H Pulse Oximetry 97 100 Oxygen Delivery 01/15/25 06:45 Temperature Pulse Rate 50 L Respiratory Rate 16 Blood Pressure Pulse Oximetry 96 Oxygen Delivery Meds/Results Medications: Active Medications Generic Name Dose Route Start Last Admin Trade Name Freq PRN Reason Stop Dose Admin Aspirin 81 mg 01/15/25 08:00 Aspirin 81 Mg Chewable Tablet PO DAILY@0800 [facility] Carvedilol 3.125 mg 01/15/25 09:00 Carvedilol 3.125 Mg Tablet PO Q12HR [facility] Clopidogrel Bisulfate 75 mg 01/15/25 09:00 Clopidogrel Bisulfate 75 Mg Tablet PO QAM [facility] Dextrose 12.5 gm 01/14/25 19:32 Dextrose 50% 25 Gm/50 Ml Syringe IV PUSH PRN PRN Hypoglycemia Protocol Glucagon 1 mg 01/14/25 19:32 Glucagon For Inj 1 Mg Vial IM PRN PRN Hypoglycemia Protocol Glucose 15 gm 01/14/25 19:32 Glucose Oral Gel 15 Gm Of Glucse In 37.5 Gm Tube PO PRN PRN Hypoglycemia Protocol Hydralazine HCl 10 mg 01/15/25 05:40 Hydralazine Hcl 20 Mg/Ml Vial IV PUSH Q8H PRN Blood Pressure - High Dextrose 1,000 mls @ 100 mls/hr 01/14/25 19:32 Dextrose 5% 1,000 Ml IVPB PRN PRN Hypoglycemia Protocol Insulin Aspart 10 units 01/15/25 08:00 Insulin Aspart (*Bkc) 100 Units/Ml 0.1 units/kg (10 units) SUB-Q TIDWM [facility] Insulin Aspart 2 - 5 units 01/15/25 08:00 Insulin Aspart (*Bkc) 100 Units/Ml SUB-Q TIDWM [facility] Protocol Perflutren Lipid Microsphere 0 ml 01/15/25 05:36 Perflutren Lipid Microspheres 1.5 Ml Vial Diluted To 10 Ml Total Volume IV PUSH 01/18/25 05:36 ONCE PRN adequate visualization Protocol Rosuvastatin Calcium 40 mg 01/15/25 09:00 Rosuvastatin 20 [facility] [place] Results: ITS Impressions Head CT 01/14/25 15:16 Impression: 1.No acute intracranial abnormality. Chest X-Ray 01/14/25 15:24 Impression: No acute cardiopulmonary abnormality. Head/Neck CTA 01/14/25 18:25 IMPRESSION: No hemodynamically significant stenosis is noted of the cervical and intracranial arterial vasculature. Multiple left thyroid lobe nodules measuring up to 2 cm. Follow-up ultrasound is recommended. Labs Labs: Laboratory Results - last 24 hr 01/14/25 01/14/25 01/14/25 17:12 18:21 22:51 WBC 7.0 RBC 4.87 Hgb 13.4 L Hct 42.3 MCV 86.9 MCH 27.5 MCHC 31.7 L RDW 13.6 Plt Count 117 L MPV 10.7 H Immature Gran % (Auto) 0.1 Neut % (Auto) 69.1 Lymph % (Auto) 20.6 Ellis % (Auto) 8.3 Eos % (Auto) 1.8 Baso % (Auto) 0.1 L Lymph # (Auto) 1.45 Ellis # (Auto) 0.6 Eos # (Auto) 0.1 Baso # (Auto) 0.0 Abs Immat Gran (auto) 0.01 Absolute Neuts (auto) 4.9 Absolute Nucleated RBC 0.000 Nucleated RBC % 0.0 % Immature Plt Fraction PT 13.9 INR 1.1 APTT 28.0 Sodium 141 Potassium 4.8 Chloride 109 H Carbon Dioxide 25 Anion Gap 7 BUN 38 H Creatinine 2.41 H Estim Creat Clear Calc 29 Estimated GFR 27 L Glucose 203 H POC Capillary Glucose 170 H Hemoglobin A1c Calcium 8.8 Total Bilirubin 0.3 AST 20 ALT 16 Alkaline Phosphatase 62 Troponin I < 0.012 Total Protein 7.1 Albumin 3.9 TSH (Reflex) Urine Color Yellow Urine Appearance Clear Urine pH 5.5 Ur Specific [place] 1.023 Urine Protein 2+ H Urine Glucose (UA) 3+ H Urine Ketones Negative Ur Blood (Man) Trace Urine Nitrate Negative Urine Bilirubin Negative Urine Urobilinogen 0.2 Leukocyte Esterase Rfl Negative Urine RBC 0-2 Urine WBC 0-5 Ur Squamous Epith Cells None seen Urine Bacteria None seen Urine Casts 0-2 Urine Opiates Screen Negative Urine Methadone Screen Negative Ur Barbiturates Screen Negative Ur Phencyclidine Scrn Negative Ur Amphetamine Screen Negative U Benzodiazepines Scrn Negative Urine Cocaine Screen Negative U Cannabinoids Screen Negative 01/15/25 06:03 WBC 7.6 RBC 4.68 Hgb 13.0 L Hct 40.7 L MCV 87.0 MCH 27.8 MCHC 31.9 L RDW 13.4 Plt Count 105 L MPV 11.1 H Immature Gran % (Auto) 0.4 Neut % (Auto) 65.8 Lymph % (Auto) 20.8 Ellis % (Auto) 10.3 H Eos % (Auto) 2.4 Baso % (Auto) 0.3 Lymph # (Auto) 1.58 Ellis # (Auto) 0.8 H Eos # (Auto) 0.2 Baso # (Auto) 0.0 Abs Immat Gran (auto) 0.03 Absolute Neuts (auto) 5.0 Absolute Nucleated RBC 0.000 Nucleated RBC % 0.0 % Immature Plt Fraction 3.0 PT INR APTT Sodium 140 Potassium 4.3 Chloride 107 Carbon Dioxide 27 Anion Gap 6 BUN 33 H Creatinine 2.15 H Estim Creat Clear Calc 32 Estimated GFR 31 L Glucose 95 POC Capillary Glucose Hemoglobin A1c 6.2 H Calcium 8.8 Total Bilirubin AST ALT Alkaline Phosphatase Troponin I Total Protein Albumin TSH (Reflex) 4.190 Urine Color Urine Appearance Urine pH Ur Specific [place] Urine Protein Urine Glucose (UA) Urine Ketones Ur Blood (Man) Urine Nitrate Urine Bilirubin Urine Urobilinogen Leukocyte Esterase Rfl Urine RBC Urine WBC Ur Squamous Epith Cells Urine Bacteria Urine Casts Urine Opiates Screen Urine Methadone Screen Ur Barbiturates Screen Ur Phencyclidine Scrn Ur Amphetamine Screen U Benzodiazepines Scrn Urine Cocaine Screen U Cannabinoids Screen Quality VTE Prophylaxis VTE prophylaxis: mechanical ordered
--- NOTE | 2025-01-15 09:19 | ADMGEN ---
This patient, David Álvarez, was admitted to [facility] Surg Room 321-01. Patient/family oriented to hospital policies and general routines including ID bracelet, bed and alarms, visiting hours, pain management, procedures, bathroom and other care routines, personal items, smoking policy, room service/diet, and visiting hours. Information on how to activate the Rapid Response Team has been discussed. Patient/Family are encouraged to report perceived risks to care and to ask questions if they do not understand what they are told or what they should do.
--- NOTE | 2025-01-15 12:58 | PC.NURSE ---
pt states he self doses his insulin at home. He states he wouldn't take the 10 units of insulin with his meal with a sugar of 132.
[2025-01-15] MEDS: ROSUVASTATIN 20 MG TABLET 40 MG PO (13:04)
[2025-01-15] MEDS: CLOPIDOGREL BISULFATE 75 MG TABLET PO (13:04)
[2025-01-15] MEDS: ASPIRIN 81 MG ENTERIC TABLET PO (13:14)
[2025-01-15 15:13] LABS: Free T4 Free Thyroxine Reflex 1.04 ng/dL (0.78-2.19)
[2025-01-15 16:12] LABS: Total Triiodothyronine (T3) 0.94 NG/ML (0.82-1.58)
[2025-01-15] MEDS: INSULIN ASPART (*BKC) 100 UNITS/ML 10 UNITS SUB-Q (17:40)
[2025-01-15] MEDS: INSULIN ASPART (*BKC) 100 UNITS/ML SUB-Q (17:40)
[2025-01-16] VITALS (11 sets, daily range): BP systolic 135–198; BP diastolic 60–68; PULSE 60–78; RESP 16–18; TEMP 36.1–36.4; O2SAT 97
--- NOTE | 2025-01-16 07:21 | PM.IMPN ---
Progress Note: A&P Assessment and Plan (1) Left arm weakness: Code(s): R29.898 - Other symptoms and signs involving the musculoskeletal system Status: Acute Assessment and Plan: Left lower extremity weakness. Able to move all extremities however [id number] on the left side is slightly delayed compared to the right. However the patient has started with the symptoms when he woke up on Saturday. He has had TIAs in the past and is currently on Plavix and aspirin so I will resume that as well. Legally blind and therefore pupils were not assessed at this time. Able to move all extremities and hold a full conversation. He has equal pedal pushes. He can lift his legs off the table bilaterally no focal weakness is noted to lower extremities. Hand post exchange manager are equal bilaterally. The patient does has the delayed response with the [id number] on the left side. continue with Aspirin, Plavix, rosuvastatin PT/OT evaluation CT head and neck: No hemodynamically significant stenosis is noted of the cervical and intracranial arterial vasculature. Multiple left thyroid lobe nodules measuring up to 2 cm. Follow-up ultrasound is recommended Thyroid US: Left thyroid nodule. Ultrasound-guided fine-needle aspiration is recommended. 01/15: Neurological exam remains unchanged, delayed finger to nose on L side, however LLE remains strong, no focal weakness in any extremities Brain MRI pending Neurology consulted, appreciate further recommendation (2) Chronic kidney disease, stage 3: Qualifiers: Chronic kidney disease stage 3 subtype: stage 3a (GFR 45-59) Qualified Code(s): N18.31 - Chronic kidney disease, stage 3a Code(s): N18.3 - Chronic kidney disease, stage 3 (moderate) Status: Acute Assessment and Plan: His creatinine is 2.41 with a previous read of now 1.9 on 10/14/2021. BUN is 38 with a previous value of 35 on 03/19/2022 the patient is on Entresto which could further worsen his renal function. avoid nephrotoxic medication. if condition worsens may consider consult with Nephrology. may consider renal ultrasound 01/16: Cr downtrending. 2.41 ->2.15 -> 2.11 (3) Thyroid nodule: Code(s): E04.1 - Nontoxic single thyroid nodule Status: Acute Assessment and Plan: Head/neck CTA: Multiple left thyroid lobe nodules measuring up to 2 cm. Follow-up ultrasound is recommended. Thyroid ultrasound: Left thyroid nodule. Ultrasound-guided fine-needle aspiration is recommended. Will recommend he follow-up will PCP & heme/Onc for possible FNA (4) DM2 (diabetes mellitus, type 2): Qualifiers: Diabetes mellitus complication status: with other specified complication Diabetes mellitus fci insulin use: with fci use Qualified Code(s): E11.69 - Type 2 diabetes mellitus with other specified complication; Z79.4 - intermediate (current) use of insulin Code(s): E11.9 - Type 2 diabetes mellitus without complications Status: Chronic Assessment and Plan: Accu-Cheks AC and HS with sliding scale insulin resume home dose with pharmacy to adjust. 01/16: 222 (5) COPD (chronic obstructive pulmonary disease): Code(s): J44.9 - Chronic obstructive pulmonary disease, unspecified Status: Acute Assessment and Plan: continue with home medications. continue with Singulair once home medications have been reconciled. (6) BPH (benign prostatic hyperplasia): Qualifiers: Lower urinary tract symptom presence: unspecified whether lower urinary tract symptoms present Qualified Code(s): N40.0 - Benign prostatic hyperplasia without lower urinary tract symptoms Code(s): N40.0 - Benign prostatic hyperplasia without lower urinary tract symptoms Status: Acute Assessment and Plan: waiting medication reconciliation continue his finasteride as per home med list. (7) Blind: Code(s): H54.7 - Unspecified visual loss Status: Chronic (8) CHF (congestive heart failure): Qualifiers: Heart failure chronicity: acute on chronic Heart failure type: unspecified Qualified Code(s): I50.9 - Heart failure, unspecified Code(s): I50.9 - Heart failure, unspecified Status: Acute Assessment and Plan: last echo noted was at outside facility 12/25/2022 and the patient had an EF of 45-50%. May consider an echo if not performed in the last 6 months. resume Entresto if renal function is stable. awaiting home medications to be reconciled continue with Coreg once his medications have been reconciled. His blood pressure is 187/138 this morning (9) Hyperlipidemia: Qualifiers: Hyperlipidemia type: mixed hyperlipidemia Qualified Code(s): E78.2 - Mixed hyperlipidemia Code(s): E78.5 - Hyperlipidemia, unspecified Status: Acute Assessment and Plan: continue with rosuvastatin and monitor liver enzymes (10) Hypertension: Qualifiers: Hypertension type: essential hypertension Qualified Code(s): I10 - Essential (primary) hypertension Code(s): I10 - Essential (primary) hypertension Status: Acute Assessment and Plan: continue with Coreg once medications have been reconciled. p.r.n. hydralazine Subjective Date/time seen: 01/16/25 07:21 Interval history: This is a 69-year-old male patient who has a past medical history of TIAs and CVAs. He is legally blind. The patient stated that he has had weakness to his left upper arm and left lower extremity since he woke up with this on Saturday morning. He denies any injury. 01/16/2025 Patient sitting comfortably in bed at time of exam. Denies any CP, SOB, abd pain. Endorsed nausea this morning with an episode of emesis, initially given Zofran but was ineffective, gave Compazine and patient not denying any nausea at this time. MRI and Neurology consult still pending. Patient is nursing some left lower extremity dragging when ambulating with states that it has improved since admission. Patient otherwise stable Review of Systems Review of Systems: All systems reviewed & are unremarkable except as noted in HPI and below Constitutional: Constitutional: Reports as per HPI and Reports no additional constitutional complaints Eyes: Eyes: Reports as per HPI and Reports no additional eye complaints ENT: Reports system reviewed and no additional complaints, except as documented and Reports Normal hearing present Cardiovascular: Cardiovascular: Reports no additional cardiovascular complaints Respiratory: Respiratory: Reports as per HPI and Reports no additional respiratory complaints Gastrointestinal: Gastrointestinal: Reports as per HPI and Reports no additional gastrointestinal complaints Musculoskeletal: Musculoskeletal: Reports no additional musculoskeletal complaints Integumentary/Breasts: Skin/Breast: Reports system reviewed and no additional complaints, except as docu Neurologic: Reports system reviewed and no additional complaints, except as documented and Reports Normal hearing present Psychiatric: Psychiatric: Reports no additional psychiatric complaints and Reports as per HPI Hematologic/Lymphatic: Hematologic/Lymphatic: Reports no additional hematologic/lymphatic complaints Allergic/Immunologic: Allergic/Immunologic: Reports no additional allergic/immunologic complaints Exam Const: General: cooperative, healthy appearing, comfortable, no acute distress, well developed, awake, Physically active, average body habitus and well nourished Nutritional Appearance: average body habitus and well nourished Orientation/consciousness: oriented to person, oriented to place, oriented to time and patient oriented x3 Limitations: no limitations HENMT: Head: normal to inspection, No palpable skull fracture present, normocephalic, atraumatic and abrasion Eyes: General: appearance normal, both eyes and all related structures Alignment and Position: alignment normal Periorbital: periorbital findings normal Eyelids: eyelids normal Other: Patient is wearing sunglasses at this time as he is legally blind. Pupils were not assessed at this time. Neck: Neck: normal visual inspection and full ROM Chest: Chest palpation & inspection: normal inspection of the chest Resp: Effort & Inspection: normal respiratory effort Auscultation: clear to auscultation bilaterally Cardio: Palpation: normal PMI Rate: regular rate Rhythm: regular rhythm Heart sounds: S1 normal heart sound present and S2 normal heart sound present Peripheral pulses: Peripheral pulses 2+ throughout GI: Inspection: normal to inspection Auscultation: normal bowel sounds Rectal Exam: deferred : General: Yes no CVA tenderness Back/Spine/Pelvis: Back: no CVA tenderness Cervical Spine: cervical ROM normal Skin: General skin exam: normal color Lesions: no lesions Rashes: no rashes Trauma: no lacerations or abrasions Wounds: no wounds Hair: normal Nails: normal Neuro: General: oriented to person, oriented to place, oriented to time and patient oriented x3 Cranial nerves: Yes Normal hearing present Other: The patient is able to do finger to nose even though he is blind. He is able to do this bilaterally however he is a little bit delayed on the left side Extrem: General: normal to inspection Right upper extremity: normal to inspection and shoulder/upper arm Left upper extremity: normal to inspection and shoulder/upper arm Right lower extremity: normal to inspection Left lower extremity: normal to inspection Psych: Appearance: grossly normal Mental Status: mental status grossly normal Speech and movement: Normal speech and movement present Affect: normal affect Attitude: cooperative Thought process: Normal thought process present Insight: Good insight present (Psych) Judgement: Good judgement present (Psych) Objective Data Vital Signs Vital Signs: Vital Signs - 24 hr 01/15/25 07:27 01/15/25 07:30 01/15/25 07:45 Temperature Pulse Rate 65 55 L 54 L Respiratory Rate 11 L 20 19 Blood Pressure Pulse Oximetry 99 98 97 Oxygen Delivery 01/15/25 08:10 01/15/25 09:00 01/15/25 09:00 Temperature 96.5 F L Pulse Rate 55 L 56 L Respiratory Rate 16 Blood Pressure 167/84 H 170/67 H Pulse Oximetry 98 97 Oxygen Delivery Room Air 01/15/25 12:00 01/15/25 13:03 01/15/25 14:00 Temperature 97.9 F Pulse Rate 54 L 56 L 63 Respiratory Rate 18 Blood Pressure 149/64 H Pulse Oximetry 99 Oxygen Delivery 01/15/25 16:00 01/15/25 20:00 01/15/25 22:00 Temperature 97 F L Pulse Rate 71 89 58 L Respiratory Rate 16 Blood Pressure 186/70 H Pulse Oximetry 95 Oxygen Delivery 01/16/25 04:00 01/16/25 05:30 Temperature 97.5 F L Pulse Rate 60 67 Respiratory Rate 18 Blood Pressure 198/68 H Pulse Oximetry 97 Oxygen Delivery Intake/Output Intake/Output: Intake & Output 01/13/25 01/14/25 01/15/25 01/16/25 23:59 23:59 23:59 23:59 Intake Total 830 250 Balance 830 250 Meds/Results Medications: Active Medications Generic Name Dose Route Start Last Admin Trade Name Freq PRN Reason Stop Dose Admin Aspirin 81 mg 01/15/25 12:00 01/15/25 13:14 Aspirin 81 Mg Enteric Tablet PO 81 mg DAILY MARISELA Administration Carvedilol 3.125 mg 01/15/25 12:00 01/15/25 18:07 Carvedilol 3.125 Mg Tablet PO Not Given BID [facility] Clopidogrel Bisulfate 75 mg 01/15/25 09:00 01/15/25 13:04 Clopidogrel Bisulfate 75 Mg Tablet PO 75 mg QAM MARISELA Administration Clopidogrel Bisulfate 75 mg 01/16/25 09:00 Clopidogrel Bisulfate 75 Mg Tablet PO DAILY [facility] Dextrose 12.5 gm 01/14/25 19:32 Dextrose 50% 25 Gm/50 Ml Syringe IV PUSH PRN PRN Hypoglycemia Protocol Finasteride 5 mg 01/16/25 09:00 Finasteride 5 Mg Tablet PO DAILY [facility] Fluoxetine HCl 40 mg 01/16/25 09:00 Fluoxetine Hcl 20 Mg Capsule PO DAILY [facility] Glucagon 1 mg 01/14/25 19:32 Glucagon For Inj 1 Mg Vial IM PRN PRN Hypoglycemia Protocol Glucose 15 gm 01/14/25 19:32 Glucose Oral Gel 15 Gm Of Glucse In 37.5 Gm Tube PO PRN PRN Hypoglycemia Protocol Hydralazine HCl 10 mg 01/15/25 05:40 01/16/25 05:46 Hydralazine Hcl 20 Mg/Ml Vial IV PUSH 10 mg Q8H PRN Administration Blood Pressure - High Hydralazine HCl 10 mg 01/16/25 07:18 Hydralazine 10 Mg Tablet PO 01/16/25 07:19 ONCE ONE Dextrose 1,000 mls @ 100 mls/hr 01/14/25 19:32 Dextrose 5% 1,000 Ml IVPB PRN PRN Hypoglycemia Protocol Insulin Aspart 10 units 01/15/25 08:00 01/15/25 17:40 Insulin Aspart (*Bkc) 100 Units/Ml 0.1 units/kg (10 units) 10 units SUB-Q Administration TIDWM [facility] Insulin Aspart 2 - 5 units 01/15/25 08:00 01/15/25 17:40 Insulin Aspart (*Bkc) 100 Units/Ml SUB-Q 2 units TIDWM MARISELA Administration Protocol Montelukast Sodium 10 mg 01/16/25 09:00 Montelukast Sodium 10 Mg Tablet PO DAILY MARISELA Non-Formulary Medication 5 mg 01/16/25 09:00 Dapagliflozin Propanediol [Farxiga] PO 02/15/25 08:59 DAILY MARISELA Non-Formulary Medication 1 cap 01/16/25 09:00 Omeprazole-Sodium Bicarbonate [Zegerid Otc] PO 02/15/25 08:59 DAILY MARISELA Perflutren Lipid Microsphere 0 ml 01/15/25 05:36 Perflutren Lipid Microspheres 1.5 Ml Vial Diluted To 10 Ml Total Volume IV PUSH 01/18/25 05:36 ONCE PRN adequate visualization Protocol Pregabalin 100 mg 01/16/25 09:00 Pregabalin (*Crx) 50 Mg Capsule PO QAM MARISELA Pregabalin 200 mg 01/16/25 21:00 Pregabalin (*Crx) 50 Mg Capsule PO HS MARISELA Rosuvastatin Calcium 40 mg 01/15/25 09:00 01/15/25 13:04 Rosuvastatin 20 Mg Tablet PO 40 mg QAM MARISELA Administration Rosuvastatin Calcium 40 mg 01/16/25 09:00 Rosuvastatin 20 Mg Tablet PO DAILY MARISELA Sacubitril/Valsartan 1 tab 01/16/25 09:00 Sacubitril/Valsartan 24-26 Mg Tablet PO BID [facility] Trazodone HCl 50 mg 01/16/25 21:00 Trazodone Hcl 50 Mg Tablet PO QHS [facility] Vitamin D 50 mcg 01/16/25 09:00 Cholecalciferol (Vitamin D3) 25 Mcg (1,000 Units) Tablet PO DAILY [facility] Radiology Results: ITS Impressions Head CT 01/14/25 15:16 Impression: 1.No acute intracranial abnormality. Chest X-Ray 01/14/25 15:24 Impression: No acute cardiopulmonary abnormality. Head/Neck CTA 01/14/25 18:25 IMPRESSION: No hemodynamically significant stenosis is noted of the cervical and intracranial arterial vasculature. Multiple left thyroid lobe nodules measuring up to 2 cm. Follow-up ultrasound is recommended. Thyroid Ultrasound 01/15/25 08:23 IMPRESSION: 1. Left thyroid nodule. Ultrasound-guided fine-needle aspiration is recommended. Labs Labs: Laboratory Results - last 24 hr 01/15/25 01/15/25 01/15/25 06:03 08:12 11:47 POC Capillary Glucose 132 H 132 H Free T4 1.04 Total T3 0.94 01/15/25 01/15/25 16:46 21:59 POC Capillary Glucose 232 H 121 H Free T4 Total T3 Quality VTE Prophylaxis VTE prophylaxis: mechanical ordered
[2025-01-16] MEDS: ONDANSETRON HCL ODT 4 MG TABLET PO (07:56)
[2025-01-16 08:39] LABS: Hematocrit 44.5 % (42.0-52.0); Hemoglobin 14.3 g/dL (14.0-18.0); Immature Granulocyte Percent A 0.2 % (0-0.5); Immature Platelet Fraction Pct 3.0 % (0.9-11.2); Lymphocytes Absolute Auto 1.21 K/mm3 (0.9-3.2); Mean Corpuscular HGB Conc 32.1 g/dl (32-36); Mean Corpuscular Hemoglobin 27.6 pg (26-34); Mean Corpuscular Volume 85.7 fl (80-100); Nucleated Red Blood Cells Absolute Auto 0.000 K/mm3 (0.0-0.012); Nucleated Red Blood Cells Perc 0.0 % (0.0-0.2); Platelet Count Result 121 k/mm3 (150-375); Red Blood Count 5.19 M/mm3 (4.6-6.20); White Blood Count 9.0 K/mm3 (4.5-10.0)
[2025-01-16 08:59] LABS: Alanine Aminotransferase 18 U/L (6-50); Albumin Level 4.1 g/dL (3.5-5.1); Alkaline Phosphatase 73 U/L (38-126); Anion Gap 12 mmol/L (4-12); Aspartate Amino Transferase 23 U/L (17-59); Bilirubin,Total 0.9 mg/dL (0.2-1.3); Blood Urea Nitrogen 29 mg/dL (9-20); Calcium 9.1 mg/dL (8.4-10.2); Carbon Dioxide 21 mmol/L (22-30); Chloride 106 mmol/L (98-107); Estimated CRCL calculation 33 ml/min; Estimated Glomerular Filt Rate 31; Glucose 222 mg/dL (65-110); Potassium 4.4 mmol/L (3.4-5.0); Sodium 139 mmol/L (137-145); Total Protein 7.2 g/dL (6.3-8.2)
--- NOTE | 2025-01-16 09:30 | PCPTNOTE ---
Physical therapy evaluation attempted, but nursing states patient is throwing up and very nauseous, Physical therapy will attempt again as time allows.
[2025-01-16] MEDS: PROCHLORPERAZINE EDISYLATE 10 MG/2 ML VIAL IV PUSH (10:42)
[2025-01-16] MEDS: INSULIN ASPART (*BKC) 100 UNITS/ML 10 UNITS SUB-Q ×2 (12:23→17:09)
[2025-01-16] MEDS: INSULIN ASPART (*BKC) 100 UNITS/ML SUB-Q (12:24)
[2025-01-16] MEDS: ROSUVASTATIN 20 MG TABLET 40 MG PO (12:28)
[2025-01-16] MEDS: ASPIRIN 81 MG ENTERIC TABLET PO (12:28)
[2025-01-16] MEDS: PREGABALIN (*CRX) 50 MG CAPSULE 100 MG PO (12:28)
[2025-01-16] MEDS: CLOPIDOGREL BISULFATE 75 MG TABLET PO (12:29)
[2025-01-16] MEDS: SODIUM BICARBONATE TAB 325 MG TABLET 975 MG PO (12:29)
[2025-01-16] MEDS: PANTOPRAZOLE 40 MG TABLET PO (12:29)
[2025-01-16] MEDS: EMPAGLIFLOZIN 10 MG TABLET BY MOUTH (12:29)
[2025-01-16] MEDS: SACUBITRIL/VALSARTAN 24-26 MG TABLET 1 TAB PO ×2 (12:29→17:08)
[2025-01-16] MEDS: CHOLECALCIFEROL (VITAMIN D3) 25 MCG (1,000 UNITS) TABLET 50 MCG PO (12:29)
[2025-01-16] MEDS: FINASTERIDE 5 MG TABLET PO (12:29)
[2025-01-16] MEDS: MONTELUKAST SODIUM 10 MG TABLET PO (12:30)
[2025-01-16] MEDS: PREGABALIN (*CRX) 50 MG CAPSULE 200 MG PO (20:24)
[2025-01-17] VITALS (7 sets, daily range): BP systolic 127–137; BP diastolic 53–73; PULSE 53–76; RESP 15–18; TEMP 36; O2SAT 96–97
--- NOTE | 2025-01-17 07:23 | P.PNIM_ITS ---
Progress Note: A&P Assessment and Plan (1) Left arm weakness: Code(s): R29.898 - Other symptoms and signs involving the musculoskeletal system Status: Acute Assessment and Plan: * Left lower extremity weakness. Able to move all extremities however [id number] on the left side is slightly delayed compared to the right. However the patient has started with the symptoms when he woke up on Saturday. He has had TIAs in the past and is currently on Plavix and aspirin so I will resume that as well. * Legally blind and therefore pupils were not assessed at this time. Able to move all extremities and hold a full conversation. He has equal pedal pushes. He can lift his legs off the table bilaterally no focal weakness is noted to lower extremities. 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 The patient does has th e delayed response with the [id number] on the left side. * continue with Aspirin, Plavix, rosuvastatin * PT/OT evaluation * CT head and neck: No hemodynamically significant stenosis is noted of the cervical and intracranial arterial vasculature. * Multiple left thyroid lobe nodules measuring up to 2 cm. Follow-up ultrasound is recommended * Thyroid US: Left thyroid nodule. Ultrasound-guided fine-needle aspiration is recommended. * 01/15: Neurological exam remains unchanged, delayed finger to nose on L side, however LLE remains strong, no focal weakness in any extremities * Brain MRI pending * Neurology consulted, appreciate further recommendation (2) Chronic kidney disease, stage 3: Qualifiers: Chronic kidney disease stage 3 subtype: stage 3a (GFR 45-59) Qualified Code(s): N18.31 - Chronic kidney disease, stage 3a Code(s): N18.3 - Chronic kidney disease, stage 3 (moderate) Status: Acute Assessment and Plan: His creatinine is 2.41 with a previous read of now 1.9 on 10/14/2021. BUN is 38 with a previous value of 35 on 03/19/2022 * the patient is on Entresto which could further worsen his renal function. * avoid nephrotoxic medication. * if condition worsens may consider consult with Nephrology. * may consider renal ultrasound * 01/16: Cr downtrending. 2.41 ->2.15 -> 2.11 (3) Thyroid nodule: Code(s): E04.1 - Nontoxic single thyroid nodule Status: Acute Assessment and Plan: * Head/neck CTA: Multiple left thyroid lobe nodules measuring up to 2 cm. Follow-up ultrasound is recommended. * Thyroid ultrasound: Left thyroid nodule. Ultrasound-guided fine-needle aspiration is recommended. * Will recommend he follow-up will PCP & heme/Onc for possible FNA (4) DM2 (diabetes mellitus, type 2): Qualifiers: Diabetes mellitus termite helper insulin use: with termite helper use Diabetes mellitus complication status: with other specified complication Qualified Code(s): E11.69 - Type 2 diabetes mellitus with other specified complication; Z79.4 - FDC (current) use of insulin Code(s): E11.9 - Type 2 diabetes mellitus without complications Status: Chronic Assessment and Plan: * Accu-Cheks AC and HS with sliding scale insulin * resume home dose with pharmacy to adjust. * 01/16: 222 (5) COPD (chronic obstructive pulmonary disease): Code(s): J44.9 - Chronic obstructive pulmonary disease, unspecified Status: Acute Assessment and Plan: * continue with home medications. * continue with Singulair once home medications have been reconciled. (6) BPH (benign prostatic hyperplasia): Qualifiers: Lower urinary tract symptom presence: unspecified whether lower urinary tract symptoms present Qualified Code(s): N40.0 - Benign prostatic hyperplasia without lower urinary tract symptoms Code(s): N40.0 - Benign prostatic hyperplasia without lower urinary tract symptoms Status: Acute Assessment and Plan: * waiting medication reconciliation continue his finasteride as per home med list. (7) Blind: Code(s): H54.7 - Unspecified visual loss Status: Chronic (8) CHF (congestive heart failure): Qualifiers: Heart failure chronicity: acute on chronic Heart failure type: unspecified Qualified Code(s): I50.9 - Heart failure, unspecified Code(s): I50.9 - Heart failure, unspecified Status: Acute Assessment and Plan: * last echo noted was at outside facility 12/25/2022 and the patient had an EF of 45-50%. May consider an echo if not performed in the last 6 months. * resume Entresto if renal function is stable. * awaiting home medications to be reconciled * continue with Coreg once his medications have been reconciled. His blood pressure is 187/138 this morning (9) Hyperlipidemia: Qualifiers: Hyperlipidemia type: mixed hyperlipidemia Qualified Code(s): E78.2 - Mixed hyperlipidemia Code(s): E78.5 - Hyperlipidemia, unspecified Status: Acute Assessment and Plan: * continue with rosuvastatin and monitor liver enzymes (10) Hypertension: Qualifiers: Hypertension type: essential hypertension Qualified Code(s): I10 - Essential (primary) hypertension Code(s): I10 - Essential (primary) hypertension Status: Acute Assessment and Plan: * continue with Coreg once medications have been reconciled. * p.r.n. hydralazine Subjective Date/time seen: 01/17/25 07:23 Interval history: This is a 69-year-old male patient who has a past medical history of TIAs and CVAs. He is legally blind. The patient stated that he has had weakness to his left upper arm and left lower extremity since he woke up with this on Saturday morning. He denies any injury. 01/16/2025 Patient sitting comfortably in bed at time of exam. Denies any CP, SOB, abd pain. Endorsed nausea this morning with an episode of emesis, initially given Zofran but was ineffective, gave Compazine and patient not denying any nausea at this time. MRI and Neurology consult still pending. Patient is nursing some left lower extremity dragging when ambulating with states that it has improved since admission. Patient otherwise stable Review of Systems Review of Systems: All systems reviewed & are unremarkable except as noted in HPI and below Constitutional: Constitutional: Reports as per HPI and Reports no additional constitutional complaints Eyes: Eyes: Reports as per HPI and Reports no additional eye complaints ENT: Reports system reviewed and no additional complaints, except as documented and Reports Normal hearing present Cardiovascular: Cardiovascular: Reports no additional cardiovascular complaints Respiratory: Respiratory: Reports as per HPI and Reports no additional respiratory complaints Gastrointestinal: Gastrointestinal: Reports as per HPI and Reports no additional gastrointestinal complaints Musculoskeletal: Musculoskeletal: Reports no additional musculoskeletal complaints Integumentary/Breasts: Skin/Breast: Reports system reviewed and no additional complaints, except as docu Neurologic: Reports system reviewed and no additional complaints, except as documented and Reports Normal hearing present Psychiatric: Psychiatric: Reports no additional psychiatric complaints and Reports as per HPI Hematologic/Lymphatic: Hematologic/Lymphatic: Reports no additional hematologic/lymphatic complaints Allergic/Immunologic: Allergic/Immunologic: Reports no additional allergic/immunologic complaints Exam Const: General: cooperative, healthy appearing, comfortable, no acute distress, well developed, awake, Physically active, average body habitus and well nourished Nutritional Appearance: average body habitus and well nourished Orientation/consciousness: oriented to person, oriented to place, oriented to time and patient oriented x3 Limitations: no limitations HENMT: Head: normal to inspection, No palpable skull fracture present, normocephalic, atraumatic and abrasion Eyes: General: appearance normal, both eyes and all related structures Alignment and Position: alignment normal Periorbital: periorbital findings normal Eyelids: eyelids normal Other: Patient is wearing sunglasses at this time as he is legally blind. Pupils were not assessed at this time. Neck: Neck: normal visual inspection and full ROM Chest: Chest palpation & inspection: normal inspection of the chest Resp: Effort & Inspection: normal respiratory effort Auscultation: clear to auscultation bilaterally Cardio: Palpation: normal PMI Rate: regular rate Rhythm: regular rhythm Heart sounds: S1 normal heart sound present and S2 normal heart sound present Peripheral pulses: Peripheral pulses 2+ throughout GI: Inspection: normal to inspection Auscultation: normal bowel sounds Rectal Exam: deferred : General: Yes no CVA tenderness Back/Spine/Pelvis: Back: no CVA tenderness Cervical Spine: cervical ROM normal Skin: General skin exam: normal color Lesions: no lesions Rashes: no rashes Trauma: no lacerations or abrasions Wounds: no wounds Hair: n ormal Nails: normal Neuro: General: oriented to person, oriented to place, oriented to time and patient oriented x3 Cranial nerves: Yes Normal hearing present Other: The patient is able to do finger to nose even though he is blind. He is able to do this bilaterally however he is a little bit delayed on the left side Extrem: General: normal to inspection Right upper extremity: normal to inspection and shoulder/upper arm Left upper extremity: normal to inspection and shoulder/upper arm Right lower extremity: normal to inspection Left lower extremity: normal to inspection Psych: Appearance: grossly normal Mental Status: mental status grossly normal Speech and movement: Normal speech and movement present Affect: normal affect Attitude: cooperative Thought process: Normal thought process present Insight: Good insight present (Psych) Judgement: Good judgement present (Psych) Objective Data Vital Signs Vital Signs: Vital Signs - 24 hr 01/16/25 07:56 01/16/25 08:00 01/16/25 08:31 Temperature Pulse Rate 71 Respiratory Rate Blood Pressure 151/64 H Pulse Oximetry Oxygen Delivery Room Air 01/16/25 12:00 01/16/25 12:31 01/16/25 14:00 Temperature 96.9 F L Pulse Rate 78 73 69 Respiratory Rate 18 Blood Pressure 165/63 H Pulse Oximetry 97 Oxygen Delivery 01/16/25 14:30 01/16/25 16:00 01/16/25 17:09 Temperature Pulse Rate 61 76 Respiratory Rate Blood Pressure Pulse Oximetry Oxygen Delivery Room Air 01/16/25 20:00 01/16/25 20:20 01/17/25 00:00 Temperature 97.0 F L Pulse Rate 63 72 55 L Respiratory Rate 16 Blood Pressure 135/60 Pulse Oximetry 97 Oxygen Delivery 01/17/25 04:00 01/17/25 05:58 Temperature 96.8 F L Pulse Rate 53 L 66 Respiratory Rate 15 Blood Pressure 127/53 L Pulse Oximetry 97 Oxygen Delivery Intake/Output Intake/Output: Intake & Output 01/14/25 01/15/25 01/16/25 01/17/25 23:59 23:59 23:59 23:59 Intake Total 830 970 350 Output Total 200 Balance 830 770 350 Meds/Results Medications: Active Medications Generic Name Dose Route Start Last Admin Trade Name Freq PRN Reason Stop Dose Admin Aspirin 81 mg 01/15/25 12:00 01/16/25 12:28 Aspirin 81 Mg Enteric Tablet PO 81 mg DAILY MARISELA Administration Carvedilol 3.125 mg 01/15/25 12:00 01/16/25 17:09 Carvedilol 3.125 Mg Tablet PO 3.125 mg BID MARISELA Administration Clopidogrel Bisulfate 75 mg 01/16/25 09:00 01/16/25 12:29 Clopidogrel Bisulfate 75 Mg Tablet PO 75 mg DAILY MARISELA Administration Dextrose 12.5 gm 01/14/25 19:32 Dextrose 50% 25 Gm/50 Ml Syringe IV PUSH PRN PRN Hypoglycemia Protocol Empagliflozin 10 mg 01/16/25 09:00 01/16/25 12:29 Empagliflozin 10 Mg Tablet BY MOUTH 10 mg DAILY MARISELA Administration Finasteride 5 mg 01/16/25 09:00 01/16/25 12:29 Finasteride 5 Mg Tablet PO 5 mg DAILY MARISELA Administration Fluoxetine HCl 40 mg 01/16/25 09:00 01/16/25 12:30 Fluoxetine Hcl 20 Mg Capsule PO 40 mg DAILY MARISELA Administration Glucagon 1 mg 01/14/25 19:32 Glucagon For Inj 1 Mg Vial IM PRN PRN Hypoglycemia Protocol Glucose 15 gm 01/14/25 19:32 Glucose Oral Gel 15 Gm Of Glucse In 37.5 Gm Tube PO PRN PRN Hypoglycemia Protocol Hydralazine HCl 10 mg 01/15/25 05:40 01/16/25 05:46 Hydralazine Hcl 20 Mg/Ml Vial IV PUSH 10 mg Q8H PRN Administration Blood Pressure - High Dextrose 1,000 mls @ 100 mls/hr 01/14/25 19:32 Dextrose 5% 1,000 Ml IVPB PRN PRN Hypoglycemia Protocol Insulin Aspart 10 units 01/15/25 08:00 01/16/25 17:09 Insulin Aspart (*Bkc) 100 Units/Ml 0.1 units/kg (10 units) 10 units SUB-Q Administration [facility] Insulin Aspart 2 - 5 units 01/15/25 08:00 01/16/25 17:08 Insulin Aspart (*Bkc) 100 Units/Ml SUB-Q Not Given [facility] Protocol Montelukast Sodium 10 mg 01/16/25 09:00 01/16/25 12:30 Montelukast Sodium 10 Mg Tablet PO 10 mg DAILY MARISELA Administration Ondansetron HCl 4 mg 01/16/25 07:47 01/16/25 07:56 Ondansetron Hcl Odt 4 Mg Tablet PO 4 mg Q6H PRN Administration Nausea And Vomiting Pantoprazole Sodium 40 mg 01/16/25 09:00 01/16/25 12:29 Pantoprazole 40 Mg Tablet PO 40 mg QAM MARISELA Administration Perflutren Lipid Microsphere 0 ml 01/15/25 05:36 Perflutren Lipid Microspheres 1.5 Ml Vial Diluted To 10 Ml Total Volume IV PUSH 01/18/25 05:36 ONCE PRN adequate visualization Protocol Pregabalin 100 mg 01/16/25 09:00 01/16/25 12:28 Pregabalin (*Crx) 50 Mg Capsule PO 100 mg QAM MARISELA Administration Pregabalin 200 mg 01/16/25 21:00 01/16/25 20:24 Pregabalin (*Crx) 50 Mg Capsule PO 200 mg HS MARISELA Administration Rosuvastatin Calcium 40 mg 01/16/25 09:00 01/16/25 12:28 Rosuvastatin 20 Mg Tablet PO 40 mg DAILY MARISELA Administration Sacubitril/Valsartan 1 tab 01/16/25 09:00 01/16/25 17:08 Sacubitril/Valsartan 24-26 Mg Tablet PO 1 tab BID MARISELA Administration Sodium Bicarbonate 975 mg 01/16/25 09:00 01/16/25 12:29 Sodium Bicarbonate Tab 325 Mg Tablet PO 975 mg QAM MARISELA Administration Trazodone HCl 50 mg 01/16/25 21:00 01/16/25 20:25 Trazodone Hcl 50 Mg Tablet PO 50 mg QHS MARISELA Administration Vitamin D 50 mcg 01/16/25 09:00 01/16/25 12:29 Cholecalciferol (Vitamin D3) 25 Mcg (1,000 Units) Tablet PO 50 mcg DAILY MARISELA Administration Radiology Results: ITS Impressions Head CT 01/14/25 15:16 Impression: 1.No acute intracranial abnormality. Chest X-Ray 01/14/25 15:24 Impression: No acute cardiopulmonary abnormality. Head/Neck CTA 01/14/25 18:25 IMPRESSION: No hemodynamically significant stenosis is noted of the cervical and intracranial arterial vasculature. Multiple left thyroid lobe nodules measuring up to 2 cm. Follow-up ultrasound is recommended. Thyroid Ultrasound 01/15/25 08:23 IMPRESSION: 1. Left thyroid nodule. Ultrasound-guided fine-needle aspiration is recommended. Labs Labs: Laboratory Results - last 24 hr 01/16/25 01/16/25 01/16/25 08:08 08:24 11:30 WBC 9.0 RBC 5.19 Hgb 14.3 Hct 44.5 MCV 85.7 MCH 27.6 MCHC 32.1 RDW 13.3 Plt Count 121 L MPV 10.6 H Immature Gran % (Auto) 0.2 Neut % (Auto) 77.2 H Lymph % (Auto) 13.4 L Dickenson % (Auto) 7.1 Eos % (Auto) 1.8 Baso % (Auto) 0.3 Lymph # (Auto) 1.21 Dickenson # (Auto) 0.6 Eos # (Auto) 0.2 Baso # (Auto) 0.0 Abs Immat Gran (auto) 0.02 Absolute Neuts (auto) 7.0 H Absolute Nucleated RBC 0.000 Nucleated RBC % 0.0 % Immature Plt Fraction 3.0 Sodium 139 Potassium 4.4 Chloride 106 Carbon Dioxide 21 L Anion Gap 12 BUN 29 H Creatinine 2.11 H Estim Creat Clear Calc 33 Estimated GFR 31 L Glucose 222 H POC Capillary Glucose 208 H 253 H Calcium 9.1 Total Bilirubin 0.9 AST 23 ALT 18 Alkaline Phosphatase 73 Total Protein 7.2 Albumin 4.1 01/16/25 01/16/25 16:50 20:21 WBC RBC Hgb Hct MCV MCH MCHC RDW Plt Count MPV Immature Gran % (Auto) Neut % (Auto) Lymph % (Auto) Dickenson % (Auto) Eos % (Auto) Baso % (Auto) Lymph # (Auto) Dickenson # (Auto) Eos # (Auto) Baso # (Auto) Abs Immat Gran (auto) Absolute Neuts (auto) Absolute Nucleated RBC Nucleated RBC % % Immature Plt Fraction Sodium Potassium Chloride Carbon Dioxide Anion Gap BUN Creatinine Estim Creat Clear Calc Estimated GFR Glucose POC Capillary Glucose 170 H 181 H Calcium Total Bilirubin AST ALT Alkaline Phosphatase Total Protein Albumin Quality VTE Prophylaxis VTE prophylaxis: mechanical ordered
[2025-01-17] MEDS: INSULIN ASPART (*BKC) 100 UNITS/ML 10 UNITS SUB-Q ×2 (08:27→12:32)
[2025-01-17] MEDS: PANTOPRAZOLE 40 MG TABLET PO (08:30)
[2025-01-17] MEDS: ROSUVASTATIN 20 MG TABLET 40 MG PO (08:30)
[2025-01-17] MEDS: ASPIRIN 81 MG ENTERIC TABLET PO (08:30)
[2025-01-17] MEDS: MONTELUKAST SODIUM 10 MG TABLET PO (08:30)
[2025-01-17] MEDS: SACUBITRIL/VALSARTAN 24-26 MG TABLET 1 TAB PO (08:32)
[2025-01-17] MEDS: FINASTERIDE 5 MG TABLET PO (08:32)
[2025-01-17] MEDS: PREGABALIN (*CRX) 50 MG CAPSULE 100 MG PO (08:32)
[2025-01-17] MEDS: CLOPIDOGREL BISULFATE 75 MG TABLET PO (08:32)
[2025-01-17] MEDS: CHOLECALCIFEROL (VITAMIN D3) 25 MCG (1,000 UNITS) TABLET 50 MCG PO (08:32)
[2025-01-17] MEDS: SODIUM BICARBONATE TAB 325 MG TABLET 975 MG PO (08:32)
[2025-01-17] MEDS: EMPAGLIFLOZIN 10 MG TABLET BY MOUTH (08:33)
--- NOTE | 2025-01-17 09:47 | WPDNEURCNPN ---
Assessment and Plan Assessment and plan (1) Left leg weakness: Code(s): R29.898 - Other symptoms and signs involving the musculoskeletal system Status: Acute (2) Peripheral vascular disease: Code(s): I73.9 - Peripheral vascular disease, unspecified Status: Acute Plan 1. Diabetes mellitus with all the secondary complications of diabetes that is retinal involvement by history and also severe diabetic neuropathy 2. Recent complaint of dragging of the left lower extremity raising the possibility of superimposed TIA though it could be related to the diabetic neuropathy. Patient will benefit from the nerve conduction studies as an outpatient. 3. 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 Patient will benefit from the ongoing physical therapy. He is receiving aspirin 81mg daily, and clopidogrel 75mg daily, in addition to the diabetic treatment these 2 medication can be continued for 6 weeks and clopidogrel can be stopped and he can be continued on aspirin. Rest of the medication as such. Consult date: 01/17/25 HPI: David Álvarez is a 69 year old male Admitted to the hospital through the emergency room for the complaints of dragging of left lower extremity since Saturday morning in addition to the ongoing history of 1. Diabetes mellitus 2. Total blindness 3. coronary artery disease 4. Peripheral vascular disease 5. Implantable loop recorder 6. Chronic kidney disease 7. Peripheral neuropathy 8. History of coronary artery stenting in the past 9. History of knee surgery 10. History of being former smoker and former alcohol intake or that is 42 drinks per week. His medications included 1.aspirin 81mg daily 2. Carvedilol 6.25mg daily 3. Clopidogrel 75mg daily 4. Entresto 1 tablet twice a day 5. Farxiga 5mg daily 6. Insulin 7. Lyrica 100mg daily a.m. and 200mg at night . On initial evaluation in the ER he appeared in no distress his vital signs were normal, with blood pressure 149/64, CBC was with platelet count of 1 5, BMP with BUN 33 creatinine 2.1, UA negative, and the drug screen negative, initial CT scan of the head negative for the bleed, his CTA of cervical and intracranial arterial vasculature was normal, EKG was normal without any atrial fibrillation but with sinus bradycardia, head neck CTA without significant stenosis of cervical or intracranial arterial vasculature, thyroid scan with left thyroid nodule, and brain MRI with acute infarct involving the posterior limb of the right internal capsule in addition to old infarcts in the yanely, right thalamus, right basal ganglia, right cerebellum, left frontal and parietal lobes and left occipital lobe. Review of Systems Review of Systems: All systems reviewed & are unremarkable except as noted in HPI and below [facility] Past Medical History Medical History (Updated 01/17/25 @ 10:00 by Kev Campa MD) Diabetic neuropathy Implantable loop recorder present Peripheral vascular disease CVA (cerebral vascular accident) CAD (coronary artery disease) DM2 (diabetes mellitus, type 2) Blind Both eyes Heart attack (~09/2019) Cardiogenic shock Chronic kidney disease, stage 3 Herpes simplex Hypertriglyceridemia COPD (chronic obstructive pulmonary disease) BPH (benign prostatic hyperplasia) Peripheral neuropathy Erectile dysfunction Low testosterone Chronic pain Hyperlipidemia Hypertension Trigger finger Surgical History Surgical History (Updated 01/14/25 @ 20:04 by Bethanie Carmona APRN) Status post trigger finger release H/O hand surgery Left hand History of coronary artery stent placement Four cardiac stents [facility] via thoracotomy one at [facility] H/O skin graft of the right thigh as a child History of knee surgery Family History Family History Grandparent Diabetes mellitus Mother Tuberculosis Dementia Father Dementia Hx of CABG in his early 60s Social History Social History (Updated 01/15/25 @ 05:22 by Bethanie Carmona APRN) Social History: He is . The patient has 2 biologic biological children and his has 1 adopted child. Code status: Full code Primary care physician: Dr. Martinez Code status: Full code Smoking status: Former smoker Tobacco type: cigarettes Second hand tobacco smoke exposure: Yes (first ) Smoking end date: 04/01/74 Alcohol intake: former Drinks per week: 42 Substance use: never Substance use type: does not use Lack of Transportation: No Lack of Food: Never True Current Housing: I Have Housing Concerned About Future Housing: No Difficulty Paying Gas/Electric Bills: No Difficulty Paying for Meds: No Currently Unemployed: No Education: Associate Degree Difficulty w/ Childcare or Family Care: No Living arrangements: with family Additional living arrangements comments: he lives with his and children. Occupation/Education: retired Additional occupation/education comments: Patient is disabled due to complications of diabetes. Gender identity (if verbalized by the patient): Male Spiritual care concerns: No Agree to blood products: Yes Meds Home Medications and Allergies Home Medications ?Medication ?Instructions ?Recorded ?Confirmed ?Type aspirin 81 mg tablet,delayed 81 mg PO DAILY 05/25/19 01/15/25 History release (Adult Low Dose Aspirin) carvedilol 6.25 mg tablet 3.125 mg PO BID 08/18/20 01/15/25 History clopidogrel 75 mg tablet 75 mg PO DAILY 08/18/20 01/15/25 History sacubitril 24 mg-valsartan 26 mg 1 tablet PO BID 03/09/22 01/15/25 History tablet (Entresto) cholecalciferol (vitamin D3) 50 50 mcg PO DAILY 07/27/22 01/15/25 History mcg (2,000 unit) tablet blood-glucose,tool filer hand,cont #6 ea 03/24/24 10/01/24 Rx (Dexcom G7 [employer]) insulin glargine-yfgn 100 unit/mL 40 unit (0.4 mL) subcut BID 90 03/24/24 01/15/25 Rx (3 mL) subcutaneous pen ([facility] days #72 mL (insulin glargine-yfgn) Pen) blood-glucose sensor (Dexcom G7 #6 ea 05/22/24 01/15/25 Rx Sensor device) montelukast 10 mg tablet 10 mg PO DAILY #90 tabs 05/25/24 01/15/25 Rx pen needle, diabetic 31 gauge x #500 ea 05/26/24 10/01/24 Rx 5/16 (BD Ultra-Fine Short Pen Needle) trazodone 50 mg tablet 50 mg PO QHS #30 tabs 06/19/24 01/15/25 Rx finasteride 5 mg tablet 5 mg PO DAILY #90 tabs 08/18/24 01/15/25 Rx fluoxetine 40 mg capsule 40 mg PO DAILY #90 caps 08/18/24 01/15/25 Rx rosuvastatin 40 mg tablet 40 mg PO DAILY #90 tabs 12/04/24 01/15/25 Rx dapagliflozin propanediol 5 mg 5 mg PO DAILY 01/15/25 01/15/25 History tablet (Farxiga) insulin lispro 100 unit/mL See Rx Instructions subcut .COMPLEX 01/15/25 01/15/25 History subcutaneous pen (Humalog KwikPen (U-100) Insulin) omeprazole 20 mg-sodium 1 cap PO DAILY 01/15/25 01/15/25 History bicarbonate 1.1 gram capsule (Zegerid OTC) pregabalin 100 mg capsule (Lyrica) 100 mg PO QAM 01/15/25 01/15/25 History pregabalin 200 mg capsule 200 mg PO HS 01/15/25 01/15/25 History Allergies Allergy/AdvReac Type Severity Reaction Status Date / Time fluorescein AdvReac Nausea and Verified 01/15/25 09:20 Vomiting Vital Signs Vital Signs - 24 hr 01/16/25 12:00 01/16/25 12:31 01/16/25 14:00 Temperature 36.1 C L Pulse Rate 78 73 69 Respiratory Rate 18 Blood Pressure 165/63 H Pulse Oximetry 97 Oxygen Delivery 01/16/25 14:30 01/16/25 16:00 01/16/25 17:09 Temperature Pulse Rate 61 76 Respiratory Rate Blood Pressure Pulse Oximetry Oxygen Delivery Room Air 01/16/25 20:00 01/16/25 20:20 01/17/25 00:00 Temperature 36.1 C L Pulse Rate 63 72 55 L Respiratory Rate 16 Blood Pressure 135/60 Pulse Oximetry 97 Oxygen Delivery 01/17/25 04:00 01/17/25 05:58 01/17/25 08:33 Temperature 36.0 C L Pulse Rate 53 L 66 58 L Respiratory Rate 15 Blood Pressure 127/53 L Pulse Oximetry 97 Oxygen Delivery Exam Narrative: Exam today revealed him to be awake alert cooperative in no obvious acute distress totally blind but able to follow all the verbal commands appropriately, laying in the bed supine with both eyes closed, head normocephalic with no cranial bruit, neck supple with no cervical bruit no thyromegaly no lymphadenopathy, heart regular, lungs clear to auscultation, abdomen is soft nontender, neurologically he is awake alert oriented being in the hospital, his speech not dysphasic not dysarthric not dysphonic, both eyes are closed with statement that he is completely blind, facial grimace symmetrical tongue in the midline and motor examination revealed him to have decreased strength proximally and distally in both upper and lower extremities with obvious wasting of the small muscles, very sluggish deep tendon reflexes, plantar responses downgoing, decreased sensation distally in both upper and lower extremities, Results Labs 01/16/25 08:24 01/16/25 08:24
[2025-01-17] MEDS: INSULIN ASPART (*BKC) 100 UNITS/ML SUB-Q (12:33)
--- NOTE | 2025-01-17 17:13 | P.DS_ITS ---
DS: Admitting Diagnosis Discharge Date 01/17/2025 Admitting Diagnosis left arm weakness, left lower extremity weakness DS: Discharge Diagnosis Discharge Diagnosis (1) Left arm weakness: Code(s): R29.898 - Other symptoms and signs involving the musculoskeletal system Status: Acute Assessment and Plan: * Left lower extremity weakness. Able to move all extremities however [id number] on the left side is slightly delayed compared to the right. However the patient has started with the symptoms when he woke up on Saturday. He has had TIAs in the past and is currently on Plavix and aspirin so I will resume that as well. * Legally blind and therefore pupils were not assessed at this time. Able to move all extremities and hold a full conversation. He has equal pedal pushes. He can lift his legs off the table bilaterally no focal weakness is noted to lower extremities. Hand elementary principal are equal bilaterally. The patient does has the delayed response with the tvzexd-qe-lgoo on the left side. * continue with Aspirin, Plavix, rosuvastatin * PT/OT evaluation * CT head and neck: No hemodynamically significant stenosis is noted of the cervical and intracranial arterial vasculature. * Multiple left thyroid lobe nodules measuring up to 2 cm. Follow-up ultrasound is recommended * Thyroid US: Left thyroid nodule. Ultrasound-guided fine-needle aspiration is recommended. 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 * Neurology wants to continue aspirin 81 mg daily, continue clopidogrel 75 mg daily x 6 weeks, continue statin and continue treatment of patients diabetes * outpatient PT/OT ordered * patient needs to call the neurology clinic to arrange outpatient EMG testing per Neurology (2) Chronic kidney disease, stage 3: Qualifiers: Chronic kidney disease stage 3 subtype: stage 3a (GFR 45-59) Qualified Code(s): N18.31 - Chronic kidney disease, stage 3a Code(s): N18.3 - Chronic kidney disease, stage 3 (moderate) Status: Acute Assessment and Plan: His creatinine is 2.41 with a previous read of now 1.9 on 10/14/2021. BUN is 38 with a previous value of 35 on 03/19/2022 * the patient is on Entresto which could further worsen his renal function. * avoid nephrotoxic medication. * if condition worsens may consider consult with Nephrology. * may consider renal ultrasound * 01/16: Cr downtrending. 2.41 ->2.15 -> 2.11 (3) Thyroid nodule: Code(s): E04.1 - Nontoxic single thyroid nodule Status: Acute Assessment and Plan: * Head/neck CTA: Multiple left thyroid lobe nodules measuring up to 2 cm. Follow-up ultrasound is recommended. * Thyroid ultrasound: Left thyroid nodule. Ultrasound-guided fine-needle aspiration is recommended. * Will recommend he follow-up will PCP & heme/Onc for possible FNA (4) DM2 (diabetes mellitus, type 2): Qualifiers: Diabetes mellitus complication status: with other specified complication Diabetes mellitus alf insulin use: with terminal make up operator use Qualified Code(s): E11.69 - Type 2 diabetes mellitus with other specified complication; Z79.4 - adjunct faculty for medical terminology (current) use of insulin Code(s): E11.9 - Type 2 diabetes mellitus without complications Status: Chronic Assessment and Plan: * Accu-Cheks AC and HS with sliding scale insulin * resume home dose with pharmacy to adjust. * 01/15/2025 HgbA1c 6.2% (5) COPD (chronic obstructive pulmonary disease): Code(s): J44.9 - Chronic obstructive pulmonary disease, unspecified Status: Acute Assessment and Plan: * continue with home medications. * continue with Singulair (6) BPH (benign prostatic hyperplasia): Qualifiers: Lower urinary tract symptom presence: unspecified whether lower urinary tract symptoms present Qualified Code(s): N40.0 - Benign prostatic hyperplasia without lower urinary tract symptoms Code(s): N40.0 - Benign prostatic hyperplasia without lower urinary tract symptoms Status: Acute Assessment and Plan: continue finasteride (7) Blind: Code(s): H54.7 - Unspecified visual loss Status: Chronic (8) CHF (congestive heart failure): Qualifiers: Heart failure chronicity: acute on chronic Heart failure type: unspecified Qualified Code(s): I50.9 - Heart failure, unspecified Code(s): I50.9 - Heart failure, unspecified Status: Acute Assessment and Plan: * last echo noted was at outside facility 12/25/2022 and the patient had an EF of 45-50%. * ECHO done 01/15/2025 - EF 55-60%, normal diastolic function. * resume Entresto * continue with Coreg (9) Hyperlipidemia: Qualifiers: Hyperlipidemia type: mixed hyperlipidemia Qualified Code(s): E78.2 - Mixed hyperlipidemia Code(s): E78.5 - Hyperlipidemia, unspecified Status: Acute Assessment and Plan: * continue with rosuvastatin and monitor liver enzymes (10) Hypertension: Qualifiers: Hypertension type: essential hypertension Qualified Code(s): I10 - Essential (primary) hypertension Code(s): I10 - Essential (primary) hypertension Status: Acute Assessment and Plan: * continue with Coreg * p.r.n. hydralazine DS: Summary Hospital Course Reason for hospitalization: left sided weakness Hospital Course: Patient is a 69 year old male with PMH of TIAs, CVAs, legal blindness, DM type 2, PVD, BPH, COPD, CKD stage 3, peripheral neuropathy, HLD, HTN, AK, CAD and CHF. Patient presented to the ER with complaints of left arm and leg weakness. CT head and neck showed no hemodynamically significant stenosis and multiple left thyroid lobe nodules measuring up to 2 cm. Neurology was consulted. Brain MRI was ordered. Patient had an ultrasound of the thyroid which showed a left thyroid nodule and recommended an ultrasound guided fine-needle aspiration. Patient to follow up with his PCP regarding this after discharge. 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 Neurology recommended patient have EMG studies as an outpatient due to his diabetic neuropathy. Neurology re commended for patient to continue aspirin 81 mg daily and his home statin. Continue Plavix 75 mg PO daily x 6 weeks. Continue treatment for diabetes to keep Hgba1c controlled. Outpatient PT/OT ordered for patient. Patient discharged home. Patient to follow up with his PCP within 1-2 weeks of discharge. Patient to call neurology to schedule outpatient EMG testing. Time Spent with Patient Time attestation: Total time spent providing and/or coordinating discharge services: 40 Minutes Exam Const: General: comfortable and no acute distress HENMT: Face/Nose/Sinus: Normal nares present Mouth: Yes moist mucous membranes Eyes: General: appearance normal, both eyes and all related structures Neck: Neck: supple Resp: Effort & Inspection: normal respiratory effort Auscultation: clear to auscultation bilaterally Cardio: Rate: regular rate Rhythm: regular rhythm GI: GI Palp: Yes Soft to palpation Auscultation: normal bowel sounds Skin: General skin exam: normal color and no rashes or lesions noted Neuro: Motor exam (neuro): 5/5 motor strength present throughout Sensory Exam: normal sensation Extrem: General: normal to inspection Psych: Mental Status: mental status grossly normal Affect: normal affect DS: Data Data Completed and Pending Completed studies during hospitalization: ECHO Signed Patient: David Álvarez : 1955 MR#: [id number] Age: 69 Acct:[id number] Loc: [id number] ADM Date: 01/16/[address]: Kan Landaverde M.D. Ordering Physician: Bethanie Carmona APRN Date of Service: 01/15/25 Procedure(s): CA echo doppler color flow Accession Number(s): [id number] cc: Bethanie Carmona APRN; Aggie Martinez MD~ Patient Info Name: David Álvarez Age: 69 years : 1955 Gender: Male Ht: 72 in Wt: 214 lbs BSA: 2.24 m2 HR: 50 bpm BP: 179 / 61 mmHg Technical Quality: Good Exam Date: 01/15/2025 9:45 AM Patient Status: I Admit Date: 01/16/2025 Exam Type: CA echo doppler color flow Complete two-dimensional, color flow and Doppler transthoracic echocardiogram is performed. Staff Referring Physician: Bethanie Carmona PICKER FEEDER Pantographer: Shruthi Fountain Attending Provider: Kan Landaverde Summary 1. Complete two-dimensional, color flow and Doppler transthoracic echocardiogram is performed. 2. Technically difficult study, suboptimal image quality. Normal LV size, mild LVH. Normal LV systolic function, ejection fraction about 55-60%. Normal diastolic function. Normal RV size and systolic function. Mild left atrial enlargement. Normal mitral valve structure, mild mitral regurgitation. Aortic valve is not well visualized, appears mildly sclerotic, no hemodynamically significant stenosis by Doppler. Mild aortic regurgitation. Trace TR, unable to assess RVSP due to inadequate required chair jet. Mild pulmonary regurgitation. Mild aortic root calcification. Trivial pericardial effusion. Left Ventricular Outflow Tract Name Value Normal LVOT 2D LVOT Diameter 2.1 cm LVOT Doppler LVOT Peak Velocity 112 cm/s LVOT Peak Gradient 5 mmHg LVOT Mean Gradient 2 mmHg LVOT VTI 30 cm LVOT Stroke Volume 107 ml LVOT CO 5.2 l/min LVOT CI 2.3 l/min/m2 Pulmonic Valve Name Value Normal RVOT Doppler RVOT Peak Velocity 59 cm/s RVOT Peak Gradient 1 mmHg PV Doppler PV Peak Velocity 76 cm/s PV Peak Gradient 2 mmHg Mitral Valve Name Value Normal MV Diastolic Function MV E Peak Velocity 71 cm/s MV A Peak Velocity 63 cm/s MV E/A 1.1 MV Decel Time (PW) 214 ms MV Annular TDI MV E/e' (Septal) 13.7 MV E/e' (Lateral) 9.6 MV E/e' (Average) 11.6 Aortic Valve Name Value Normal AV Doppler AV Peak Velocity 137 cm/s AV Peak Gradient 7 mmHg AV Area (Cont Eq Zach) 3.0 cm2 AV DI (Zach) 0.82 AV Regurgitation 2D LVOT Area 3.6 cm2 Ventricles Name Value Normal LV Dimensions 2D/MM IVS Diastolic Thickness (2D) 1.0 cm 0.6-1.0 LVID Diastole (2D) 4.3 cm 4.2-5.8 LVIW Diastolic Thickness (2D) 1.1 cm 0.6-1.0 LVID Systole (2D) 3.1 cm 2.5-4.0 LVOT Diameter 2.1 cm LV Mass (2D Cubed) 149.93 g 88.00-224.00 LV Mass Index (2D Cubed) 67 g/m2 49-115 Relative Wall Thickness (2D) 0.50 <=0.42 LV Fractional Shortening/Ejection Fraction 2D/MM LV Fractional Shortening (2D) 28 % 25-43 LV EF (2D Teichholz) 55 % LV Diastolic Volume (4C MOD) 131 ml LV EF (4C MOD) 62 % LV Diastolic Volume (2C MOD) 131 ml LV EF (2C MOD) 52 % LV Diastolic Volume (BP MOD) 131 ml 62-150 LV Diastolic Volume Index (BP MOD) 58 ml/m2 34-74 LV Systolic Volume (BP MOD) 59 ml 21-61 LV Systolic Volume Index (BP MOD) 26 ml/m2 11-31 LV EF (BP MOD) 55 % 52-72 LV Diastolic Length (4C) 9.0 cm LV Systolic Length (4C) 7.5 cm LV Stroke Volume (4C MOD) 81 ml Atria Name Value Normal LA Dimensions LA Volume (4C A-L) 52 ml RA Dimensions RA Systolic Major Slayden Length (4C) 5.5 cm 2.1-2.7 RA Area (4C) 14.4 cm2 <=18.0 Report Signatures Labs on day of discharge: Labs from last 24 hours 01/17/25 01/17/25 01/16/25 11:48 07:50 20:21 POC Capillary Glucose 230 H 170 H 181 H Imaging Radiologist's impression: Ordering Physician: Kinga Padgett PA-C Date of Service: 01/14/25 Procedure(s): CT brain wo con Accession Number(s): [id number] cc: Kinga Padgett PA-C~ EXAMINATION: CT brain wo con, 01/14/2025 15:05 CDT HISTORY: left leg weakness COMPARISON: No comparisons available. Technique: Axial images obtained of the brain without contrast. One or more of the following dose reduction techniques were used: automated exposure control, adjustment of the mA and/or kV according to patient size, use of iterative reconstruction technique. Findings: Remote right basal ganglia lacunar infarct. Remote left basal ganglia lacunar infarct. Mild probable chronic periventricular ischemic changes. No acute infarct or hemorrhage. No midline shift or mass effect. No extra-axial fluid collections. Mastoid air cells unremarkable. Probable sequelae of remote trauma involving the optic globes bilaterally, correlate clinically. No acute fracture. No significant facial or scalp soft tissue swelling evident. No radiopaque foreign body is seen. Impression: 1.No acute intracranial abnormality. Reviewed, dictated and finalized at location P. Ordering Physician: Kinga Padgett PA-C Date of Service: 01/14/25 Procedure(s): XR chest 1V Accession Number(s): [id number] cc: Kinga Padgett PA-C~ EXAMINATION: XR chest 1V, 01/14/2025 15:10 CDT HISTORY: weakness COMPARISON: No comparisons available. Technique: Single view. Findings: The lungs are clear, no effusion. No pneumothorax. Mild cardiomegaly. Mediastinal and hilar contours are within normal limits. Bony thorax no acute abnormality. Impression: No acute cardiopulmonary abnormality. Reviewed, dictated and finalized at location P. Ordering Physician: Saad Frausto MD Date of Service: 01/14/25 Procedure(s): CTA brain carotid Accession Number(s): [id number] cc: Saad Frausto MD~ REFERENCE: [None available.] TECHNIQUE: Axial mm images of the head and neck were obtained without and with infusion of 100 cc of Isovue 350 of intravenous contrast. Postcontrast 1.25 mm axial images were then obtained. On an independent workstation, 0.625 mm axial images were utilized to render MIP and MPR images of the intracranial circulation. CTA NECK: The aortic arch demonstrates normal caliber and patency. Normal branching pattern is noted of the supraaortic vessels. The origins of the supraaortic vessels are widely patent.. The common carotid and cervical segments of the ICA and ECA demonstrate normal caliber and patency. The vertebral arteries are symmetric in size, demonstrating normal patency. CTA HEAD: Basilar calcification within the intracranial ICA bilaterally without significant stenosis. The intracranial ICA, SAKINA, and MCA demonstrate normal caliber and patency. No hemodynamically significant stenosis or aneurysm is identified. The distal vertebral, basilar, and bilateral posterior cerebral arteries demonstrate normal caliber and patency. The superior cerebellar arteries are also widely patent. NONVASCULAR FINDINGS: Left thyroid lobe nodule measures up to 2 x 1.3 cm. F ollow-up ultrasound is recommended. The soft tissue of the neck is unremarkable. No mass or pathologic enhancement is noted. There is no pathologically enlarged lymphadenopathy. The airway is patent. No acute intracranial hemorrhage, mass, or extraaxial fluid collections are noted. Ventricular size is normal. The skull is intact. The visualized mastoid air cells and sinuses are clear. There is no pathologic enhancement. IMPRESSION: No hemodynamically significant stenosis is noted of the cervical and intracranial arterial vasculature. Multiple left thyroid lobe nodules measuring up to 2 cm. Follow-up ultrasound is recommended. Reviewed, dictated and finalized at location S. Ordering Physician: Bethanie Carmona APRN Date of Service: 01/15/25 Procedure(s): US thyroid Accession Number(s): [id number] cc: Bethanie Carmona APRN; Aggie Martinez MD; Kan Landaverde MD~ EXAMINATION: US thyroid DATE: 01/15/2025 07:57 INDICATION: Thyroid nodules. TECHNIQUE: Multiple ultrasound images of the thyroid were obtained. COMPARISON: None. FINDINGS: The right thyroid lobe measures 4.8 x 1.7 x 2.0 cm. The left thyroid lobe measures 4.5 x 2.2 x 2.0 cm. In the left thyroid lobe, there is a 2.2 cm solid, hypoechoic, wider than tall nodule with smooth margin without echogenic foci (TI-RADS TR4). IMPRESSION: 1. Left thyroid nodule. Ultrasound-guided fine-needle aspiration is recommended. Reviewed, dictated and finalized at location E. Ordering Physician: Bethanie Carmona APRN Date of Service: 01/16/25 Procedure(s): MR brain/brain stem wo/w con Accession Number(s): [id number] cc: Bethanie aCrmona APRN; Aggie Martinez MD; Kan Landaverde MD~ EXAMINATION: MR brain/brain stem wo/w con DATE: 01/16/2025 14:28 INDICATION: Left-sided weakness. TECHNIQUE: Magnetic resonance imaging (MRI) of the brain and brainstem was performed without and with 19 mL MultiHance intravenous contrast. COMPARISON: Brain MRI 10/14/2021, head CT 01/14/2025 FINDINGS: There is an acute infarct in the posterior limb right internal capsule. There are old infarcts in the yanely, right thalamus, right basal ganglia, and right cerebellum. There are small areas of cystic encephalomalacia in the left frontal and parietal deep white matter. There are scattered areas of nonspecific increased T2-weighted signal intensity in the cerebral and cere bellar white matter and brainstem. There is an old infarct in left occipital lobe. There is no intracranial hemorrhage or abnormal mass lesion. The ventricles are normal in size. 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 The mastoid air cells are normal. There is mild mucosal thickening in the paranasal sinuses. IMPRESSION: 1. Acute infarct involving posterior limb right internal capsule. 2. Old infarcts in the yanely, right thalamus, right basal ganglia, right cerebellum, left frontal and parietal lobes, and left occipital lobe. 3. Moderate nonspecific cerebral and cerebellar white matter disease and brainstem disease, which likely represents chronic small vessel ischemic disease. Reviewed, dictated and finalized at location E. Discharge Plan Discharge Attending physician on discharge: Eitan Paulino Consulting providers: Toi Sim; Kev Campa; Kinga Padgett; Jay Ferguson; Bethanie Carmona; Garrick Estrella; Saeid Kaiser; Juan Torres; Bryce Garber V. Discharging Clinician: Lesly Madison Patient Disposition: Home Activity: as tolerated Diet: heart healthy, diabetic and low sodium Discharge Instructions: Please take the clopidogrel for 6 weeks. Patient Instructions: Antibiotic Form Patient Language: Armenian Stand Alone Forms: General Discharge Information Follow-up/Referrals: Juan,MD Aggie [Primary Care Provider, Family Practice] Referral Note: call to schedule an appt to be seen within 1-2 weeks of discharge Laquita Sultana MD [Physician, Neurology] Referral Note: call to schedule an appointment for nerve conduction studies to be done as an outpatient Discharge Medications: Continued clopidogrel 75 mg tablet 75 mg PO DAILY carvedilol 6.25 mg tablet 3.125 mg PO BID Rx Instructions: must administer with a meal/food Entresto 24-26 mg tablet 1 tablet PO BID insulin glargine-yfgn [Semglee(insulin glarg-yfgn)Pen] 100 unit/mL (3 mL) insulin pen 40 unit subcut BID 90 Days Qty: 72 1RF (DME) Dexcom G7 Utilities Operator Misc See Rx Instructions .Route Qty: 6 12RF Rx Instructions: As directed for continuous glucose monitoring aspirin [Adult Low Dose Aspirin] 81 mg tablet,delayed release (DR/EC) 81 mg PO DAILY cholecalciferol (vitamin D3) 50 mcg (2,000 unit) Tablet 50 mcg PO DAILY pregabalin 200 mg capsule 200 mg PO HS omeprazole-sodium bicarbonate [Zegerid OTC] 20-1.1 mg-gram capsule 1 cap PO DAILY dapagliflozin propanediol [Farxiga] 5 mg tablet 5 mg PO DAILY insulin lispro [Humalog KwikPen Insulin] 100 unit/mL insulin pen See Rx Instructions subcut .COMPLEX Rx Instructions: Use 10 units TID before meals prn and adjust prn. Max 48 units daily. pregabalin [Lyrica] 100 mg capsule 100 mg PO QAM (DME) Dexcom G7 Sensor Device See Rx Instructions .Route Qty: 6 12RF Rx Instructions: Use continuous monitoring daily montelukast 10 mg tablet 10 mg PO DAILY Qty: 90 2RF (DME) pen needle, diabetic [BD Ultra-Fine Short Pen Needle] 31 gauge x 5/16 needle See Rx Instructions .ROUTE .MEDSUPPLY Qty: 500 11RF Rx Instructions: TID with Novolog with meals, and BID with Levemir fluoxetine 40 mg capsule 40 mg PO DAILY Qty: 90 3RF finasteride 5 mg tablet 5 mg PO DAILY Qty: 90 1RF rosuvastatin 40 mg tablet 40 mg PO DAILY Qty: 90 3RF No Action (DME) wheel chair, lightweight See Rx Instructions .Route .MEDSUPPLY Qty: 1 0RF Rx Instructions: As directed trazodone 50 mg tablet 50 mg PO QHS Qty: 30 6RF Other Ambulatory Orders: OT Outpatient Eval and Treat (ONCE) Timeframe: 20250217 Location: Determined by Patient Ordered By: Lesly Madison PT Outpatient Eval and Treat (ONCE) Timeframe: 20250217 Location: Determined by Patient Ordered By: Lesly Madison Date of admission: 01/16/25 16:32 Primary Care Provider: Ruth,Aggie Admitting Provider: Kan Landaevrde Attending physician on admission: Lesly Madison Condition: Stable Quality VTE Prophylaxis VTE prophylaxis: mechanical ordered
== END 2025-01-17 14:44 | disposition home or self-care (01) | DRG 65 ==
LOC: ANHED 19:39 → ANH3MEDSUR 19:47
PROVIDERS: Nurse Practitioner; Physician Assistant; Admitting Provider Internal Medicine; Emergency Provider Preventive Medicine Aerospace Medicine; PCP Family Medicine; Visit Provider Nurse Practitioner Adult Health
DX: I63.9 Cerebral infarction, unspecified (principal); I13.0 Hypertensive heart and chronic kidney disease with heart failure and stage 1 through stage 4 chronic kidney disease, or unspecified chronic kidney disease; R29.898 Other symptoms and signs involving the musculoskeletal system; E04.1 Nontoxic single thyroid nodule; E11.51 Type 2 diabetes mellitus with diabetic peripheral angiopathy without gangrene; E78.2 Mixed hyperlipidemia; E11.22 Type 2 diabetes mellitus with diabetic chronic kidney disease; E11.42 Type 2 diabetes mellitus with diabetic polyneuropathy; E78.5 Hyperlipidemia, unspecified; G89.29 Other chronic pain; H54.7 Unspecified visual loss; I50.9 Heart failure, unspecified; I25.10 Atherosclerotic heart disease of native coronary artery without angina pectoris; I25.2 Old myocardial infarction; J44.9 Chronic obstructive pulmonary disease, unspecified; N40.0 Benign prostatic hyperplasia without lower urinary tract symptoms; N18.31 Chronic kidney disease, stage 3a; Z95.5 Presence of coronary angioplasty implant and graft; Z86.73 Personal history of transient ischemic attack (TIA), and cerebral infarction without residual deficits; Z87.891 Personal history of nicotine dependence; Z79.82 Long term (current) use of aspirin; Z79.02 Long term (current) use of antithrombotics/antiplatelets; Z79.4 Long term (current) use of insulin
CPT/HCPCS: 36415; 70450; 70496; 70498; 70553; 71045; 76536; 80048; 80053; 80307; 81001; 82948; 83036; 84439; 84443; 84480; 84484; 85025; 85055; 85610; 85730; 93005; 93306; 96374; 96375; 96376; 97161; 97165; 99285; A9270; A9577; G0378; J0360; J0780; J1815; Q9967

== ENCOUNTER 2025-03-11 13:15 | Outpatient (RCR) | payer OTHER, MEDICAID, SELFPAY ==
--- NOTE | 2025-02-05 14:28 | OPREHPOC ---
Outpatient Therapy Plan of Care This is a Multidisciplinary Plan of Care that may contain components documented by all disciplines (PT, OT, and ST.) PT Problem 1 PT Problem #1 Knowledge Deficit PT Goal 1 Goal / Goal Update *independent with HEP Target Visit 10 PT Problem 2 PT Problem #2 Impaired Strength PT Goal 1 Goal / Goal Update 1*increase strength of R LE to 4+/5 2*increase strength of L LE to 4-/5 3* sit/stand transfer with 1 UE use Target Visit 10 PT Problem 3 PT Problem #3 Impaired Functional Mobility PT Goal 1 Goal / Goal Update 1* Tinetti gait/balance score of 22/28 2* 2 minute walking test distance with wheeled walker of 150' 3* 5 reps sit/stand time of 28 seconds Target Visit 10
--- NOTE | 2025-02-05 14:28 | PTOPEVAL1 ---
Assessment and note entered by Iveth Medina, PT Evaluation Information Assessment Status Evaluation ICD-10 Condition Codes (PT) Difficulty Walking R26.2,Abnormalities of gait and mobility R26.9,Weakness R53.1 Other ICD-10 Condition Codes ( cerebral infarct I 63.9 PT) Onset Jan 25, 2025 Subjective Information was hospitalized due to L side weakness, had cerebral infarct; was using the cane for walking, now have to use the wheeled walker or w/c; in home is using the wheeled walker and w/c for out of home; has a pedal machine for putting on the floor and using at home, but does not do any leg exercises activity: at home with Pat; have helper at home, daily to assist with outings with pt pt is legally blind, independent with showering with seat and dressing; home with basement laundry; he stays on the main level; Reported Pain Level Pain Score 0: Self Report Assessment PT Clinical Summary Akin is s/p cerebral infarct with decrease L LE strength. He is legally blind and assists with home tasks. He is able to shower and dress independently. Prior to this onset, he was using a cane for walking. Now is using a wheeled walker and w/c. LE functional scale rating of 66% limitation in activity. He has not had any falls in the past 2 months. Complex medical history includes: CVA, [place], cardiac stents, loop recorder, diabetes, legally blind, COPD, LE neuropathy. With the evaluation: to dept in w/c pushed by ; Tinetti balance/gait score of 10/28= high risk for falls; 2 minute walking test distance of 75' with wheeled walker and maximum walking distance of 150', with CGA due to blindness and guiding the walker; static standing without use of UE's is 32 seconds; decreased strength of R and L LE, requires assist with both UE's for sit/ stand transfer. Skilled PT services are indicated for therapeutic exercises and activities to increase LE strength, transfer, gait and balance skills, to improve mobility and safety; with education for HEP and mobility safety. Plan of Care Interventions Gait Training,Neuro Re-education,Patient/Caregiver Education,Therapeutic Activities,Therapeutic Exercise PT Services Indicated Yes Treatment Frequency and 1-2x/wk for 10 visits Duration These treatments will address the objective and functional deficits as defined above. The patient will be advanced safely and appropriately in order for the patient to progress towards his/her prior level of function. Additional exercises will be introduced and as well as a comprehensive home exercise program upon discharge, if needed, ?to ensure carryover of functional gains achieved in the clinic. This treatment plan has been reviewed and agreement upon by the patient.
--- NOTE | 2025-02-17 17:16 | OTOPEVDC ---
Assessment and note entered by Latonia Fraser, OT Thank you for referring David Álvarez to [facility].? An evaluation has been completed. No further treatment is needed. Evaluation Information Assessment Status Evaluation Diagnosis Cerebral infarction ICD-10 Condition Codes (OT) Generalized muscle weakness M62.81 Onset 01/16 Subjective Information Pt. reports prior to hospitalization he was using a cane for functional mobility. Pt. since returning home he is still completing ADLs independently, including dressing, showering and toileting. Pt. reports he was using a wheeled walker after initially with onset of increased L leg heaviness. Pt. reports time that when hospitalized the neurologist told him I can't walk anymore and I have to use a wheelchair. Pt. reports he was using rollator initially upon returning home, and had his primary care doctor order him a wheelchair. Pt. now self mobilizes in wheelchair, often parking his wheelchair in areas of the the house, transferring independently, ambulating while hanging onto the wall to navigate to areas such as bathroom, due to pt. being legally blind. Spouse reports she has been helping pt. lay out his clothes and is typically stand by assist for many activities, but pt. continues to maintain his daily routines, Pt. has caregiver who takes him out of the house 4x/week for outings. 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 Reported Pain Level Pain Score 0: Self Report Assessment OT Clinical Summary Pt. is 69 year old M, referred to outpatient occupational therapy after experiencing L sided weakness, with findings of acute infarct involving posterior limb right internal capsule, with history of previous infarcts. Pt. reports he has began to use wheelchair for functional mobility on return home, but maintains independence in ADLs getting assistance in most IADLs due to primary clinician visual deficits, without report of residual acute UE deficits. Pt. demonstrates almost equal overall BUE strength and coordination. Pt. and spouse report changes in pt . routine and limitations due to pt.'s concerns regarding health changes and use of more restrictive mobility device. Pt. is attending physical therapy services for increased LE strength, transfer safety, gait and balance skills , and education for mobility and safety. Pt. does not require skilled OT services at this time, and was encouraged to continue to participate in daily activities and occupations, as well as participate in non-therapeutic exercise activities to maintain capacity of functional activities and engagement. Spouse and pt. in agreement. Discharged on this date. Plan of Care OT Services Indicated No
--- NOTE | 2025-03-02 10:40 | PCPTNOTE ---
Patient called & cancelled scheduled appointment this date due to inclimate weather
--- NOTE | 2025-03-16 11:53 | PTOPDC ---
Assessment and note entered by Marianela Ernandez, PT Evaluation Information Assessment Status Discharge - Pt Not Present ICD-10 Condition Codes (PT) Difficulty Walking R26.2,Abnormalities of gait and mobility R26.9,Weakness R53.1 Other ICD-10 Condition Codes ( cerebral infarct I 63.9 PT) Onset Jan 25, 2025 Subjective Information was hospitalized due to L side weakness, had cerebral infarct; was using the cane for walking, now have to use the wheeled walker or w/c; in home is using the wheeled walker and w/c for out of home; has a pedal machine for putting on the floor and using at home, but does not do any leg exercises activity: at home with Autumn; have helper at home, daily to assist with outings with pt pt is legally blind, independent with showering with seat and dressing; home with basement laundry; he stays on the main level; Assessment PT Clinical Summary Pt attended evaluation and 2 physical therapy sessions over the course of 40 days. His called today and stated he did not want to continue PT and close his file. Thus patient is being discharged per request. Plan of Care PT Services Indicated No
== END 2025-03-16 16:52 | disposition home or self-care (01) ==
LOC: ANHPT 13:15
PROVIDERS: PCP Family Medicine Adolescent Medicine; Visit Provider Student in an Organized Health Care Education/Training Program
DX: I69.398 Other sequelae of cerebral infarction (principal); I69.359 Hemiplegia and hemiparesis following cerebral infarction affecting unspecified side; R26.89 Other abnormalities of gait and mobility; R26.2 Difficulty in walking, not elsewhere classified
CPT/HCPCS: 97110; 97116; 97161; 97165; 97530